=== PATIENT | male | born 1960 | race African-American/Black ===

== ENCOUNTER 2016-07-17 18:16 | Inpatient (IN) | payer MEDICARE ==
[~2016-07-17] VITALS: Ht 165.1 cm; Wt 124.6 kg
[~2016-07-17 18:16] MED LIST: ASPI-147 PO; CALC668T; CARV12.52 PO; DOXY100C PO; ISOS20TA PO; LIPI40TA PO; NEUR300C PO; PRIL10CA PO; PROT40TA PO; REGL10TA5 PO
[2016-07-17 18:19] VITALS: BP 120/68; PULSE 81; RESP 15; TEMP 98.7; O2SAT 97
--- NOTE | 2016-07-17 18:24 | PD ---
Physical Exam Date Seen by Provider: Jul 17, 2016 Time Seen by Provider: 18:20 Narrative Pt was sent to ED for evaluation of osteomyelitis of Right great toe. Pt was sent by Dr. Cruz. Pt reports his pain is an 8/10. Hx of DM, HTN, CKD on HD w/ L AVF. Pt is to be admitted to [facility]. See order sheet. VSS. Awaiting bed placement. MDM Supervised Visit with BOOKER: Sasha Delgado Jul 17, 2016 18:24
[2016-07-17 20:00] VITALS: PULSE 76
[2016-07-17] MEDS ORDERED: CARV3.12 PO (20:11)
[2016-07-17] MEDS ORDERED: GABA100C4 PO (20:11)
[2016-07-17] MEDS ORDERED: PIPERACIL-TAZO 3.375 GM PREMIX 50 ML IV ONE (20:15)
[2016-07-17] MEDS ORDERED: VANCOMYCIN INJ 1,000 MG in SODIUM CHLOR 0.9% 250 ML INJ 250 ML IV ONE (20:15)
--- NOTE | 2016-07-17 20:19 | PD ---
HPI Chief Complaint: Skin Problem Time Seen by Provider: 19:49 Travel History International Travel<30 days: No Contact w/Intl Traveler<30days: No Traveled to known affect area: No History of Present Illness HPI The patient is a 56 year old male who presents to the [facility] emergency department with a past medical history consisting of chronic renal failure on hemodialysis, diabetes mellitus, diabetic neuropathy, hypertension who presents after evaluation by his control officer manager, Dr. Shaw in office earlier today. The patient was noted to have an infection to the right great toe with probing by Dr. Shaw that revealed that it went down to the bone. He was concerned about osteomyelitis and sent the patient over for admission to the [facility] hospitalist service and further evaluation, infectious disease consultation. The patient reports that over the last 2 weeks he has been on doxycycline related to an infected callous on the foot that Dr. Shaw has been managing with scraping, debridement once a week for the last 6 months. The patient reports that otherwise he is in good health. He denies on review of systems having any recent fevers, cough, congestion, neck pain, chest pain, shortness of breath, abdominal pain, vomiting, diarrhea, urinary symptoms, or neurologic symptoms. [facility] Past Medical History Narrative Medical The patient's past medical history is significant for hypertension, chronic renal failure on hemodialysis on Saturday, Saturday, and Saturday. His last dialysis was on Saturday, history of type 2 diabetes mellitus. He reports that his last blood sugar was 110, history of hepatitis C, gastroparesis, diabetic neuropathy, history of chronic anemia. Heart Rhythm Problems: No Cancer: No Cardiovascular Problems: Yes High Cholesterol: Yes Chest Pain: Yes Congestive Heart Failure: No Diabetes: Yes (TYPE 2) Patient Takes Glucophage: No Dialysis: Yes (HEMO M,W,F) Diminished Hearing: No Endocrine: No Gastrointestinal Disorders: Yes (Hep C) Genitourinary: Yes (ESRD) Hepatitis: No Hiatal Hernia: No Hypertension: Yes Immune Disorder: No Implanted Vascular Access Dvce: No Medical other: Yes (diabetic neuropathy) Musculoskeletal: No Neurologic: No Psychiatric: No Reproductive: No Respiratory: No Immunizations Current: Yes Renal Failure: Yes Thyroid Disease: No Past Surgical History Narrative Surgical The patient's past surgical history is significant for a left upper extremity AV fistula for dialysis access Arteriovenous Shunt: Yes (LEFT UPPER ARM,RT. CHEST VASCATH) Pacemaker: No Other Surgery: Yes (LUE FISTULA INSERTION 09/2011) Social History Alcohol Use: No Tobacco Use: No Substance Use: No Allergies-Medications (Allergen,Severity, Reaction): Coded Allergies: Metoprolol (Verified Allergy, Severe, Blurred Vision, lightheadedness, nausea, 07/17/16) Norvasc (Verified Allergy, Severe, Blurred Vision, lightheaded, nausea, ) *MDRO Multi-Drug Resistant Organism (Verified Adverse Reaction, Unknown, ) MRSA (wounds) - 2005; (foot) - 12/22/15, 01/12/16, 05/01/16, 07/03/16 Reported Meds & Prescriptions Reported Meds & Active Scripts Active Doxycycline Hyclate 100 Mg Cap 100 Mg PO BID Reported Gabapentin 100 Mg Cap 200 Mg PO BID Carvedilol 3.125 Mg Tab 3.125 Mg PO HS Lipitor (Atorvastatin Calcium) 40 Mg Tab 40 Mg PO HS Ecotrin Low Strength (Aspirin) 81 Mg Tabdr 81 Mg PO DAILY Calcium Acetate 668 Mg Tab TID Review of Systems Except as stated in HPI: all other systems reviewed are Neg General / Constitutional: No: Fever Eyes: No: Visual changes HENT: No: Headaches Cardiovascular: No: Chest Pain or Discomfort Respiratory: No: Shortness of Breath Gastrointestinal: No: Abdominal Pain Genitourinary: No: Dysuria Musculoskeletal: No: Pain Skin: No Rash Neurologic: No: Weakness Psychiatric: No: Depression Endocrine: No: Polydipsia Hematologic/Lymphatic: No: Easy Bruising Physical Exam Narrative General: The patient is a well-developed well-nourished male in no acute distress. Head and Neck exam: Head is normocephalic atraumatic. Eyes: EOMI, pupils are equal round and reactive to light. Nose: Midline septum with pink mucous membranes Mouth: Dentition unremarkable. Moist mucus membranes. Posterior oropharynx is not erythematous. No tonsillar hypertrophy. Uvula midline. Airway patent. Neck: No palpable lymphadenopathy. No nuchal rigidity. No thyromegaly. Cardiovascular: Regular rate and rhythm without murmurs, gallops, or rubs. Lungs: Clear to auscultation bilaterally. No wheezes, rhonchi, or rales. Abdomen: Soft, without tenderness to palpation in all 4 quadrants of the abdomen. No guarding, rebound, or rigidity. Normal bowel sounds are audible. No tenderness on palpation of McBurney's point. Extremities: No clubbing or cyanosis. The patient has trace pedal edema of the left lower extremity, 1-2+ edema of the right foot, right lower extremity. The patient has 2+ pulses in all 4 extremities. The patient has a bandage in place over the distal aspect of the right foot. Prior to the bandage be removed there was a strong odor noted to be emanating from the foot. The bandage was removed and the patient was noted to have swelling, erythema, and drainage from the right great toe at the borders of the toenail, and along the inner aspect of the great toe between the first and the second toe. The swelling extends up to the dorsum of the foot. He denies having any tenderness on palpation although he does have a history of neuropathy. Back: No costovertebral angle tenderness to palpation. Neurologic Exam: Grossly nonfocal. Data Data Last Documented VS Vital Signs Date Time Temp Pulse Resp B/P Pulse Ox O2 Delivery O2 Flow Rate FiO2 07/17/16 18:19 98.7 81 15 120/68 97 Orders Electrocardiogram (07/17/16 20:05) Complete Blood Count With Diff (07/17/16 20:05) Comprehensive Metabolic Panel (07/17/16 20:05) Prothrombin Time / Inr (Pt) (07/17/16 20:05) Act Partial Throm Time (Ptt) (07/17/16 20:05) C-Reactive Protein (Crp) (07/17/16 20:05) Westergren Sedimentation Rate (07/17/16 20:05) Iv Access Insert/Monitor (07/17/16 20:05) Ecg Monitoring (07/17/16 20:05) Oximetry (07/17/16 20:05) Consult Infectious Disease (07/17/16 ) Vancomycin Inj (Vancomycin Inj) (07/17/16 20:15) Piperacil-Tazo 3.375 Gm Premix (Zosyn 3. (07/17/16 20:15) Wound Culture And Gram Stain (07/17/16 20:09) Blood Culture (07/17/16 20:09) Chest, Single Ap (07/17/16 20:09) (Hub Use Only)Inp Phy Cons/Ref (07/17/16 21:17) Ondansetron Inj (Zofran Inj) (07/17/16 22:15) Ondansetron Inj (Zofran Inj) (07/17/16 22:12) Admit Order (Ed Use Only) (07/17/16 22:41) Consult Podiatry (07/17/16 ) Labs Laboratory Tests Test 07/17/16 20:55 White Blood Count 11.2 TH/MM3 Red Blood Count 3.42 MIL/MM3 Hemoglobin 10.3 GM/DL Hematocrit 32.6 % Mean Corpuscular Volume 95.5 FL Mean Corpuscular Hemoglobin 30.1 PG Mean Corpuscular Hemoglobin 31.5 % Concent Red Cell Distribution Width 14.1 % Platelet Count 306 TH/MM3 Mean Platelet Volume 8.3 FL Neutrophils (%) (Auto) 77.2 % Lymphocytes (%) (Auto) 11.0 % Monocytes (%) (Auto) 10.0 % Eosinophils (%) (Auto) 1.2 % Basophils (%) (Auto) 0.6 % Neutrophils # (Auto) 8.7 TH/MM3 Lymphocytes # (Auto) 1.2 TH/MM3 Monocytes # (Auto) 1.1 TH/MM3 Eosinophils # (Auto) 0.1 TH/MM3 Basophils # (Auto) 0.1 TH/MM3 CBC Comment DIFF FINAL Differential Comment Erythrocyte Sedimentation Rate 91 mm/hr Prothrombin Time 11.6 SEC Prothromb Time International 1.0 RATIO Ratio Activated Partial 26.6 SEC Thromboplast Time Sodium Level 133 MEQ/L Potassium Level 5.6 MEQ/L Chloride Level 96 MEQ/L Carbon Dioxide Level 28.5 MEQ/L Anion Gap 9 MEQ/L Blood Urea Nitrogen 49 MG/DL Creatinine 10.34 MG/DL Estimat Glomerular Filtration 6 ML/MIN Rate Random Glucose 84 MG/DL Calcium Level 9.5 MG/DL Total Bilirubin 0.5 MG/DL Aspartate Amino Transf 40 U/L (AST/SGOT) Alanine Aminotransferase 21 U/L (ALT/SGPT) Alkaline Phosphatase 60 U/L C-Reactive Protein 4.68 MG/DL Total Protein 8.8 GM/DL Albumin 3.1 GM/DL MDM Medical Decision Making Medical Screen Exam Complete: Yes Emergency Medical Condition: Yes Medical Record Reviewed: Yes Interpretation(s) Last Impressions Chest X-Ray 4/25/17 2009 Signed Impressions: Service Date/Time: Sunday, July 17, 2016 20:30 - CONCLUSION: No acute disease. Tacos Downs MD Differential Diagnosis Osteomyelitis, versus cellulitis, versus infected diabetic ulcer Narrative Course During the course of the patients emergency department visit, the patients history, examination, and differential diagnosis were reviewed with the patient. The patient had IV access obtained and blood work sent for analysis. The patient was placed on a child monitor with oximetry and blood pressure monitoring. The patient's order sheet that was provided from Dr. Shaw was reviewed. Blood culture 2 was ordered, wound culture 1 was ordered. Laboratory studies were ordered. The patient's EKG done on arrival shows a sinus rhythm heart rate is 72, no acute ST segment elevation or depression. The patient was initially provided Zosyn 3.375 g IV, vancomycin 1 g IV. The patients laboratory studies were reviewed and remarkable for a white count of 11.2, hemoglobin 10.3, platelets 306 with 77.2 neutrophils, 10 monocytes, sedimentation rate is 91, CMP is remarkable for sodium of 133, potassium 5.6, BUN 49, creatinine 10.34, AST 40, C-reactive protein 4.68, PT 11.6, PTT 26.6 Radiology studies were reviewed and remarkable for a chest x-ray that shows no acute abnormality. The patients results were discussed with the patient, including the plan of care. I explained that further testing and/ or monitoring is indicated based on the patients history, examination, and/ or laboratory findings. Therefore, I recommended admission for additional evaluation. The patient expressed understanding and was agreeable with this plan. The patient was admitted to the hospital in stable condition and sent to a bed under the care of the [facility]ist service. Physician Communication Physician Communication The patient's case was discussed with Dr. Uribe who did agree to admit the patient for further evaluation and treatment at this time. Diagnosis Primary Impression: Diabetic foot ulcer Qualified Code: E11.621 - Diabetic ulcer of toe of right foot associated with type 2 diabetes mellitus, with necrosis of muscle Additional Impression: Cellulitis Qualified Code: L03.115 - Cellulitis of right lower extremity Admitting Information Admitting Physician Requests: Admit Fay Mcmahon MD Jul 17, 2016 20:19
--- NOTE | 2016-07-17 20:46 | RADRPT ---
EXAM DATE/TIME: 07/17/2016 20:30 [place] COMPARISON: No previous studies available for comparison. INDICATIONS : Cough. MEDICAL HISTORY : Hypertension. SURGICAL HISTORY : None. ENCOUNTER: Initial ACUITY: 1 day PAIN SCORE: 0/10 LOCATION: Bilateral chest FINDINGS: A single view of the chest demonstrates the lungs to be symmetrically aerated without evidence of mas s, infiltrate or effusion. The cardiomediastinal contours are unremarkable. Osseous structures are intact. CONCLUSION: No acute disease. Tacos Downs MD on July 17, 2016 at 20:44 Board Certified Radiologist. This report was verified electronically.
[2016-07-17 22:10] LABS: AUTOMATED NEUTROPHIL # 8.7 TH/MM3 (1.8-7.7); BASOPHIL # 0.1 TH/MM3 (0-0.2); BASOPHIL % 0.6 % (0.0-2.0); EOSINOPHIL # 0.1 TH/MM3 (0-0.4); EOSINOPHIL % 1.2 % (0.0-4.0); HEMATOCRIT 32.6 % (39.0-51.0); HEMO FLAGS DIFF FINAL; LYMPHOCYTE # 1.2 TH/MM3 (1.0-4.8); MEAN CELL VOLUME 95.5 FL (80.0-100.0); MEAN CORPUSCULAR HEMOGLOBIN 30.1 PG (27.0-34.0); MEAN CORPUSCULAR HGB CONC 31.5 % (32.0-36.0); NEUT % 77.2 % (16.0-70.0); PLATELET COUNT 306 TH/MM3 (150-450); RED BLOOD COUNT 3.42 MIL/MM3 (4.50-5.90); RED CELL DISTRIBUTION WIDTH 14.1 % (11.6-17.2); WHITE BLOOD COUNT 11.2 TH/MM3 (4.0-11.0)
[2016-07-17] MEDS ORDERED: ONDANSETRON HCL 4 MG/2 ML VIAL ONE (22:12)
[2016-07-17] MEDS ORDERED: ONDANSETRON HCL 4 MG/2 ML VIAL IV ONE (22:15)
[2016-07-17 22:18] LABS: APTT (PATIENT) 26.6 SEC (24.3-30.1); PROTHROMBIN TIME - PATIENT 11.6 SEC (9.8-11.6)
[2016-07-17 22:30] LABS: ALKALINE PHOSPHATASE 60 U/L (45-117); TOTAL BILIRUBIN ADULT 0.5 MG/DL (0.2-1.0)
[2016-07-17 22:32] LABS: ALT (GPT) 21 U/L (12-78); ANION GAP 9 MEQ/L (5-15); AST (GOT) 40 U/L (15-37); BICARBONATE 28.5 MEQ/L (21.0-32.0); BLOOD UREA NITROGEN 49 MG/DL (7-18); CHLORIDE 96 MEQ/L (98-107); GLOMERULAR FILTRATION RATE 6 ML/MIN (>89); SODIUM (NA) 133 MEQ/L (136-145)
[2016-07-17 22:33] LABS: POTASSIUM 5.6 MEQ/L (3.5-5.1)
[2016-07-17] MEDS ORDERED: SODIUM CHLORIDE 0.9% FLUSH 10 ML FLUSH IV FLUSH PRN (23:00)
[2016-07-17] MEDS ORDERED: ONDANSETRON HCL 4 MG/2 ML VIAL IVP PRN (23:00)
[2016-07-17] MEDS ORDERED: NALOXONE HCL 0.4 MG/ML AMP IV PRN (23:00)
[2016-07-17 23:56] VITALS: BP 135/63; PULSE 82; RESP 18; TEMP 98.4; O2SAT 100
[2016-07-18] VITALS (10 sets, daily range): BP systolic 101–126; BP diastolic 50–69; PULSE 71–79; RESP 16–18; TEMP 98.4–99.4; O2SAT 95–100
--- NOTE | 2016-07-18 01:44 | HHI.HP ---
Dr Cruz [facility] Non-Staff Admission Diagnosis Right foot infection, failed out patient management, r/o osteomyelit Diagnoses: Chief Complaint: my doctor sent me Travel History International Travel<30 Days: No Contact w/Intl Traveler <30 Da: No Traveled to Known Affected Are: No History of Present Illness History from patient, ER physician communication, and review of medical records. Patient reported that he came to the hospital because he was sent by his director script Dr. Cruz. He states that only starting Saturday, both his doctor incidence of noted his right big toe to be swelling more than usual. He reports that he was seeing his director script for calluses and a hole in his right plantar foot. He reports he was also on antibiotics for about 2 weeks. He thought that his right big toe itself was not infected much. Denies fever. However reports of chills. He is a diabetic. He reports a foul smelling discharge from this wound. He did have 1 times episode of diarrhea and vomiting last week. No blood in it. He denies any urinary symptoms. He is still making urine. He is end-stage renal disease patient on hemodialysis. Review of Systems Except as stated in HPI: all other systems reviewed are Neg Past Family Social History Past Medical History htn dm esrd hd Past Surgical History av fistula Reported Medications Patient's medications listed on EMRreviewed Allergies: Coded Allergies: Metoprolol (Verified Allergy, Severe, Blurred Vision, lightheadedness, nausea, 07/17/16) Norvasc (Verified Allergy, Severe, Blurred Vision, lightheaded, nausea, ) *MDRO Multi-Drug Resistant Organism (Verified Adverse Reaction, Unknown, ) MRSA (wounds) - 2005; (foot) - 12/22/15, 01/12/16, 05/01/16, 07/03/16 Family History grandma - dm, esrd on hd grandpa- esrd on hd mom , grandma- htn Social History no smoking/ no drinking/ no drugs Physical Exam Vital Signs Vital Signs Date Time Temp Pulse Resp B/P Pulse Ox O2 Delivery O2 Flow Rate FiO2 07/17/16 23:56 98.4 82 18 135/63 100 07/17/16 18:19 98.7 81 15 120/68 97 Physical Exam GENERAL: This is a well-nourished, well-developed patient, in no apparent distress. SKIN: No rashes, ecchymoses or lesions. Cool and dry. HEAD: Atraumatic. Normocephalic. No temporal or scalp tenderness. EYES: No scleral icterus. No injection or drainage. ENT: Nose without bleeding, purulent drainage or septal hematoma. Airway patent. NECK: Trachea midline. No JVD CARDIOVASCULAR: Regular rate and rhythm without murmurs, gallops, or rubs. RESPIRATORY: Clear to auscultation. Breath sounds equal bilaterally. No wheezes , rales, or rhonchi. GASTROINTESTINAL: Abdomen soft, non-tender, nondistended. No guarding. MUSCULOSKELETAL: Extremities without clubbing, cyanosis, or edema. No calf tenderness. Right plantar foot with open wound. Right big toe with significant swelling, pain, surrounding erythema. NEUROLOGICAL: Awake and alert. Motor and sensory grossly within normal limits. Normal speech. Laboratory Laboratory Tests Test 07/17/16 20:55 White Blood Count 11.2 Red Blood Count 3.42 Hemoglobin 10.3 Hematocrit 32.6 Mean Corpuscular Volume 95.5 Mean Corpuscular Hemoglobin 30.1 Mean Corpuscular Hemoglobin 31.5 Concent Red Cell Distribution Width 14.1 Platelet Count 306 Mean Platelet Volume 8.3 Neutrophils (%) (Auto) 77.2 Lymphocytes (%) (Auto) 11.0 Monocytes (%) (Auto) 10.0 Eosinophils (%) (Auto) 1.2 Basophils (%) (Auto) 0.6 Neutrophils # (Auto) 8.7 Lymphocytes # (Auto) 1.2 Monocytes # (Auto) 1.1 Eosinophils # (Auto) 0.1 Basophils # (Auto) 0.1 CBC Comment DIFF FINAL Differential Comment Erythrocyte Sedimentation Rate 91 Prothrombin Time 11.6 Prothromb Time International 1.0 Ratio Activated Partial 26.6 Thromboplast Time Sodium Level 133 Potassium Level 5.6 Chloride Level 96 Carbon Dioxide Level 28.5 Anion Gap 9 Blood Urea Nitrogen 49 Creatinine 10.34 Estimat Glomerular Filtration 6 Rate Random Glucose 84 Calcium Level 9.5 Total Bilirubin 0.5 Aspartate Amino Transf 40 (AST/SGOT) Alanine Aminotransferase 21 (ALT/SGPT) Alkaline Phosphatase 60 C-Reactive Protein 4.68 Total Protein 8.8 Albumin 3.1 Date/Time Procedure Status Source Growth 07/17/16 21:30 Gram Stain Received Wound Foot Pending 07/17/16 21:30 Wound Culture Received Wound Foot Pending 07/17/16 20:55 Aerobic Blood Culture Received Blood Peripheral Pending 07/17/16 20:55 Anaerobic Blood Culture Received Blood Peripheral Pending Result Diagram: 07/17/[id number]/17/162054 Imaging Last 48 hours Impressions Chest X-Ray 07/17/162008 Signed Impressions: Service Date/Time: Sunday, July 17, 2016 20:30 - CONCLUSION: No acute disease. Tacos Downs MD Assessment and Plan Problem List: (1) Osteomyelitis of toe of right foot ICD Code: M86.9 Status: Resolved (2) Diabetic foot ulcer ICD Code: E11.621 Status: Acute Assessment and Plan Impression: Possible right foot osteomyelitis Failed outpatient antibiotic therapy Right foot soft tissue infection Diabetes Hypertension End-stage renal disease on hemodialysis plan: Plan: Patient was given vancomycin and Zosyn per creatinine clearance. Will dose Vanco at dialysis. Infectious disease was already consulted. Podiatry evaluation for possible surgical intervention. We'll follow with patient's blood cultures and urine culture results. Resume rest of his home meds. DVT prophylaxiswith heparin. Discussed Condition With Patient, ER physician Physician Certification 2 Midnight Certification Type: Admission for Inpatient Services Order for Inpatient Services The services are ordered in accordance with Medicare regulations or non- Medicare payer requirements, as applicable. In the case of services not specified as inpatient-only, they are appropriately provided as inpatient services in accordance with the 2-midnight benchmark. Estimated LOS (days): 2 days is the estimated time the patient will need to remain in the hospital, assuming treatment plan goals are met and no additional complications. Post-Hospital Plan: Home Problem Qualifiers (1) Diabetic foot ulcer: Qualified Code: E11.621 - Diabetic ulcer of toe of right foot associated with type 2 diabetes mellitus, with necrosis of bone Soco Uribe MD Jul 18, 2016 01:44
[2016-07-18] MEDS: PIPERACIL-TAZO 2.25 GM PREMIX 50 ML IV SCH ×3 (04:50→22:17)
[2016-07-18] MEDS ORDERED: PIPERACIL-TAZO 4.5 GM PREMIX 100 ML IV SCH (05:00)
[2016-07-18 07:26] LABS: AUTOMATED NEUTROPHIL # 7.3 TH/MM3 (1.8-7.7); BASOPHIL % 0.3 % (0.0-2.0); EOSINOPHIL # 0.2 TH/MM3 (0-0.4); EOSINOPHIL % 1.6 % (0.0-4.0); HEMATOCRIT 32.8 % (39.0-51.0); HEMO FLAGS DIFF FINAL; LYMPH % 12.9 % (9.0-44.0); LYMPHOCYTE # 1.2 TH/MM3 (1.0-4.8); MEAN CELL VOLUME 96.3 FL (80.0-100.0); MEAN CORPUSCULAR HEMOGLOBIN 29.9 PG (27.0-34.0); MONO % 9.4 % (0.0-8.0); NEUT % 75.8 % (16.0-70.0); PLATELET COUNT 271 TH/MM3 (150-450); RED CELL DISTRIBUTION WIDTH 13.7 % (11.6-17.2); WHITE BLOOD COUNT 9.6 TH/MM3 (4.0-11.0)
[2016-07-18 07:31] LABS: BICARBONATE 26.3 MEQ/L (21.0-32.0)
--- NOTE | 2016-07-18 08:32 | PD.WOU.CON ---
Patient Intake Chief Complaint Infected right hallux Consult Requested by Reason for Consult Evaluation and treatment for osteomyelitis right hallux Primary Care Physician Non-Staff History of Present Illness Patient is a 56-year-old diabetic male with end-stage renal disease on hemodialysis Saturday, Wednesdays and Fridays who presented to [facility] for advanced wound healing yesterday with an infected right hallux. Patient previously had an ulceration on the plantar aspect of the first metatarsal head of the right foot. Last culture and sensitivity grew out MRSA. Patient was started on antibiotics. He presented yesterday with a hot red swollen toe with new ulcerations between the first and second toe and the dorsal aspect of the big toe which probed to bone. Patient was sent to the emergency department for admission for possible amputation of the right hallux [facility] Coded Allergies: Metoprolol (Verified Allergy, Severe, Blurred Vision, lightheadedness, nausea, 07/17/16) Norvasc (Verified Allergy, Severe, Blurred Vision, lightheaded, nausea, ) *MDRO Multi-Drug Resistant Organism (Verified Adverse Reaction, Unknown, ) MRSA (wounds) - 2005; (foot) - 12/22/15, 01/12/16, 05/01/16, 07/03/16 Preferred Language to Discuss: Malaysian Barriers to Learning: None Teaching Method: Discussion Vital Signs Date Time Temp Pulse Resp B/P Pulse Ox O2 Delivery O2 Flow Rate FiO2 07/18/16 05:30 99.4 75 18 126/58 97 07/18/16 00:30 76 07/17/16 23:56 98.4 82 18 135/63 100 07/17/16 18:19 98.7 81 15 120/68 97 Pain scale used: 0-10 numeric scale Pain score: 1 Medications Current Medications Vancomycin HCl 1000 mg/Sodium Chloride 250 ml @ 250 mls/hr ONCE ONCE IV Last administered on 07/17/16 22:14; Start 07/17/16 at 20:15; Stop 07/17/16 at 21:14 ; Status DC Piperacillin Sod/ Tazobactam Sod (Zosyn 3.375 Gm Premix) 50 ml @ 100 mls/hr ONCE ONCE IV Last administered on 07/17/16 22:14; Start 07/17/16 at 20:15; Stop 07/17/16 at 20:44; Status DC Ondansetron HCl (Zofran Inj) 4 mg ONCE ONCE IV Last administered on 07/17/16t 22:14; Start 07/17/16 at 22:15; Stop 07/17/16 at 22:16; Status DC Ondansetron HCl (Zofran Inj) 4 mg STK-MED ONCE .ROUTE ; Start 07/17/16 at 22:12 ; Stop 07/17/16 at 22:13; Status DC Sodium Chloride (NS Flush) 2 ml UNSCH PRN IV FLUSH FLUSH AFTER USING IV ACCESS ; Start 07/17/16 at 23:00 Sodium Chloride (NS Flush) 2 ml BID IV FLUSH ; Start 07/18/16 at 09:00 Ondansetron HCl (Zofran Inj) 4 mg Q6H PRN IVP NAUSEA OR VOMITING; Start at 23:00 Naloxone HCl 0.4 mg 0.4 mg UNSCH PRN IV SEE LABEL COMMENTS; Start 07/17/16 at 23:00 Piperacillin Sod/ Tazobactam Sod 100 ml @ 200 mls/hr Q6H IV ; Start 07/18/16 at 05:00; Status UNV Piperacillin Sod/ Tazobactam Sod (Zosyn 2.25 Gm Premix) 50 ml @ 100 mls/hr Q8H IV Last administered on 07/18/16 04:50; Start 07/18/16 at 05:00 Aspirin (Ecotrin Ec) 81 mg DAILY PO ; Start 07/18/16 at 09:00 Atorvastatin Calcium (Lipitor) 40 mg HS PO ; Start 07/18/16 at 21:00 Carvedilol (Coreg) 3.125 mg HS PO ; Start 07/18/16 at 21:00 Gabapentin (Neurontin) 200 mg Q24H PO ; Start 07/18/16 at 09:00 Heparin Sodium (Porcine) (Heparin Inj) 5,000 units Q8HR SQ ; Start 07/18/16 at 14:00 Past, Family & Social History Past Medical History HEENT: REPORTS HX OF: Cataracts Endocrine: REPORTS HX OF: Diabetes mellitus (diabetic control) Cardiovascular: REPORTS HX OF: Hyperlipidemia, Hypertension Genitourinary: REPORTS HX OF: Hemodialysis, Kidney failure (stage 5) Infectious disease: REPORTS HX OF: Chickenpox (as a child), Measles (as a child ), Mumps (as a child) Neurologic: REPORTS HX OF: Peripheral neuropathy Disabilities: REPORTS HX OF: Vision deficit (reading glasses) Past Surgical History HEENT: REPORTS HX OF: Cataract extraction Gastrointestinal: REPORTS HX OF: Colectomy, total Genitourinary: REPORTS HX OF: Other surgery Family Medical History Patient History: Unknown G8 FATHER G8 MOTHER Substance Use Substance use: Denies use Review of Systems Notes Infected right hallux Genitourinary: COMPLAINS OF: Renal disease, Dialysis Neurological: COMPLAINS OF: Numbness/tingling, Changes in sensation Wound Assessment Arrived: Ambulatory Orientation to: Time, Place, Person Vascular Assessment R Dorsails Pedis: Palpable L Dorsails Pedis: Palpable R Posterior Tibial: Palpable L Posterior Tibial: Palpable Temperature of Left Extremity: Warm Color of Left Extremity: WNL Sensation of Left Extremity: Diminished Temperature of Right Extremity: Hot Color of Right Extremity: Red Sensation of Right Extremity: Diminished Extremities Evaluation: Edema Right, Edema Left Wound Information - Wound One Wound Location: Right plantar foot of first metatarsal Wound Type: Diabetic Ulcer Classification: FT- full thickness Exudate: Low Exudate Type: Serosanguineous Debridement: No Fibrin Amount: Mild Granulation Tissue Color: [place] Exposed: No exposed bone, muscle, tendon Eschar: No Odor: No Periwound Appearance: FINDINGS: Normal Wound Two Wound Location: Right lateral Great toe Wound Type: Diabetic Ulcer Classification: PT- partial thickness Exudate: Moderate Exudate Type: Serosanguineous Debridement: No Fibrin Amount: Mild Granulation Tissue Color: [place] Granulation Tissue Texture: Spongy Exposed: No exposed bone, muscle, tendon Eschar: No Odor: Yes Periwound Appearance: FINDINGS: Maceration Wound Three Wound Location: Right medial great toe Wound Type: Diabetic Ulcer Classification: Bone/Tendon Present Exudate: Moderate Exudate Type: Purulent Debridement: No Fibrin Amount: Moderate Granulation Tissue Color: None Granulation Tissue Texture: N/A Exposed: Bone, Muscle, Tendon Eschar: No Odor: Yes Periwound Appearance: FINDINGS: Erythema Lab and Radiology Results Laboratory Laboratory Tests Test 07/17/16 07/18/16 20:55 05:46 White Blood Count 11.2 TH/MM3 9.6 TH/MM3 Red Blood Count 3.42 MIL/MM3 3.40 MIL/MM3 Hemoglobin 10.3 GM/DL 10.2 GM/DL Hematocrit 32.6 % 32.8 % Mean Corpuscular Volume 95.5 FL 96.3 FL Mean Corpuscular Hemoglobin 30.1 PG 29.9 PG Mean Corpuscular Hemoglobin 31.5 % 31.0 % Concent Red Cell Distribution Width 14.1 % 13.7 % Platelet Count 306 TH/MM3 271 TH/MM3 Mean Platelet Volume 8.3 FL 8.3 FL Neutrophils (%) (Auto) 77.2 % 75.8 % Lymphocytes (%) (Auto) 11.0 % 12.9 % Monocytes (%) (Auto) 10.0 % 9.4 % Eosinophils (%) (Auto) 1.2 % 1.6 % Basophils (%) (Auto) 0.6 % 0.3 % Neutrophils # (Auto) 8.7 TH/MM3 7.3 TH/MM3 Lymphocytes # (Auto) 1.2 TH/MM3 1.2 TH/MM3 Monocytes # (Auto) 1.1 TH/MM3 0.9 TH/MM3 Eosinophils # (Auto) 0.1 TH/MM3 0.2 TH/MM3 Basophils # (Auto) 0.1 TH/MM3 0.0 TH/MM3 CBC Comment DIFF FINAL DIFF FINAL Differential Comment Erythrocyte Sedimentation Rate 91 mm/hr Laboratory Tests Test 07/17/16 07/18/16 20:55 05:46 Sodium Level 133 MEQ/L 138 MEQ/L Potassium Level 5.6 MEQ/L 4.0 MEQ/L Chloride Level 96 MEQ/L 99 MEQ/L Carbon Dioxide Level 28.5 MEQ/L 26.3 MEQ/L Anion Gap 9 MEQ/L 13 MEQ/L Blood Urea Nitrogen 49 MG/DL 56 MG/DL Creatinine 10.34 MG/DL 11.15 MG/DL Estimat Glomerular Filtration 6 ML/MIN 6 ML/MIN Rate Random Glucose 84 MG/DL 139 MG/DL Calcium Level 9.5 MG/DL 9.1 MG/DL Total Bilirubin 0.5 MG/DL Aspartate Amino Transf 40 U/L (AST/SGOT) Alanine Aminotransferase 21 U/L (ALT/SGPT) Alkaline Phosphatase 60 U/L C-Reactive Protein 4.68 MG/DL Total Protein 8.8 GM/DL Albumin 3.1 GM/DL Microbiology Date/Time Procedure Status Source Growth 07/17/16 20:50 Aerobic Blood Culture Received Blood Peripheral Pending 07/17/16 20:50 Anaerobic Blood Culture Received Blood Peripheral Pending 07/17/16 20:55 Aerobic Blood Culture Received Blood Peripheral Pending 07/17/16 20:55 Anaerobic Blood Culture Received Blood Peripheral Pending 07/17/16 21:30 Gram Stain Received Wound Foot Pending 07/17/16 21:30 Wound Culture Received Wound Foot Pending Radiology Last Impressions Chest X-Ray 07/17/162008 Signed Impressions: Service Date/Time: Sunday, July 17, 2016 20:30 - CONCLUSION: No acute disease. Tacos Downs MD Assessment/Plan Problem List: (1) Chronic renal failure Status: Chronic (2) Ulcer of right foot with fat layer exposed Status: Acute (3) Diabetes mellitus type 2, diet-controlled Status: Chronic (4) Peripheral neuropathy Status: Chronic (5) End stage renal disease on dialysis Status: Chronic (6) Neuropathic diabetic ulcer of foot Status: Chronic (7) Osteomyelitis of toe of right foot Status: Acute (8) Diabetic foot ulcer Status: Acute Additional Plans & Procedures PLAN: Ordered Cerete labeled white blood cell scan. If scan is positive for osteomyelitis patient will be taken to the operating room for amputation of the right hallux. This will more than likely be done on Saturday after he has had hemodialysis on Saturday. Awaiting infectious disease consultation. Discuss risk of amputation with the patient. Problem Qualifiers (1) Chronic renal failure: Qualified Code: N18.4 - Chronic renal failure, stage 4 (severe) (2) Peripheral neuropathy: Qualified Code: G63 - Polyneuropathy associated with underlying disease (3) Diabetic foot ulcer: Qualified Code: E11.621 - Diabetic ulcer of toe of right foot associated with type 2 diabetes mellitus, with necrosis of bone Tacos Cruz DPM Jul 18, 2016 08:32
[2016-07-18] MEDS: SODIUM CHLORIDE 0.9% FLUSH 10 ML FLUSH IV FLUSH SCH ×2 (09:00→22:20)
[2016-07-18] MEDS ORDERED: SODIUM CHLOR 0.9% 1000 ML INJ 1,000 ML IV PRN ×3 (11:31)
[2016-07-18] MEDS ORDERED: GENTAMICIN SULFATE (DIALYSIS USE ONLY) 20 MG/2 ML VIAL IV PRN (11:45)
[2016-07-18] MEDS ORDERED: GELATIN 12 MM/7 MM FOAM TOP PRN (11:45)
[2016-07-18] MEDS ORDERED: ACETAMINOPHEN 325 MG TAB PO PRN (11:45)
[2016-07-18] MEDS ORDERED: NITROGLYCERIN 0.4 MG SL 25 TABS/BTL SL PRN (11:45)
[2016-07-18] MEDS ORDERED: MANNITOL 12.5 GM/50 ML VIAL IV PRN (11:45)
[2016-07-18] MEDS ORDERED: HEPARIN SODIUM - IV 10,000 UNITS/10 ML VIAL IVF PRN (11:45)
[2016-07-18] MEDS ORDERED: ONDANSETRON HCL 4 MG/2 ML VIAL IV PRN (11:45)
[2016-07-18] MEDS ORDERED: ALBUMIN HUMAN 25% 25 GM/100 ML BAGP IV PRN (11:45)
[2016-07-18] MEDS ORDERED: cloNIDine HCL 0.1 MG TAB PO PRN (11:45)
[2016-07-18] MEDS ORDERED: SODIUM CHLORIDE 0.9% FLUSH 10 ML FLUSH IV FLUSH PRN (11:45)
[2016-07-18] MEDS ORDERED: diphenhydrAMINE HCL 25 MG CAP PO PRN (11:45)
[2016-07-18] MEDS ORDERED: HEPARIN SODIUM - IV 10,000 UNITS/10 ML VIAL PRN (11:45)
[2016-07-18] MEDS: EPOETIN ALFA 10,000 UNITS/ML VIAL IV PRN (12:00)
--- NOTE | 2016-07-18 12:27 | MB ---
cc: GILL SHEETS MD DATE OF CONSULTATION 07/18/2016 REASON FOR CONSULTATION End-stage renal disease on hemodialysis for management. HISTORY OF PRESENT ILLNESS This is a 56-year-old male known to me from before with past medical history of hypertension, diabetes mellitus, morbid obesity, history of end-stage renal disease on hemodialysis who came to the hospital with a complaint of right big toe infection and possibility of rule out osteomyelitis. I was called to see the patient for management of hemodialysis. He has been on hemodialysis Saturday, Saturday and Saturday. He has regular dialysis on Saturday and went to follow up with a retention manager and noted that his right big toe was more swollen and was sent here for more workup and possibility of osteomyelitis. The patient denies any specific pain in the big toe. There is no shortness of breath. No chest pain. He denies any history of fever. He has some foul smelling discharge coming from his toe for the last one week or so. PAST MEDICAL HISTORY 1. Hypertension 2. Diabetes mellitus 3. Morbid obesity 4. Chronic anemia 5. End-stage renal disease on hemodialysis three times per week. PAST SURGICAL HISTORY Fistula surgery REVIEW OF SYSTEMS Denies any history of fever or sore throat. No headache, dizziness or blurring of vision. No chest pain. No palpitation. No nausea or vomiting. No abdominal pain. No history of diarrhea. He has a foul-smelling discharge coming from right big toe which is also improved. There is more swelling in the big toe, but he does not have pain. Denies any history of trauma. SOCIAL HISTORY The patient is . He lives alone. There is no history of smoking or alcoholism. FAMILY HISTORY Positive for end-stage renal disease from his grandfather and grandmother. ALLERGIES Allergic to METOPROLOL AND NORVASC. MEDICATIONS Currently he is on following medications: 1. Aspirin 81 mg once a day. 2. Lipitor 40 mg q.h.s. 3. Colace 3.125 mg q.h.s. 4. Gabapentin 200 mg q.24 h 5. Zosyn 2.25 grams IV q. 8-hour. 6. Heparin 5000 subcu q.8 h. 7. Zofran as needed PHYSICAL EXAM On examination, the patient is awake and alert. He is not in acute distress. VITAL SIGNS: His blood pressure is 112/69, temperature 99. A T-max of 99.4, oxygen saturation 95-97% on room air. HEAD, EYES, EARS, NOSE, AND THROAT: Pupils equally reacting to light. Nonicteric sclera. Conjunctivae normal. NECK: Supple. JVD is not elevated. LUNGS: The patient has bilateral good air entry with occasional wheezing. HEART: S1, S2 regular rhythm. ABDOMEN: Obese, soft and lax. There is no tenderness. Bowel sounds positive. EXTREMITIES: Mild edema in the legs. The right big toe is covered with a dressing. INVESTIGATION WBC count is 9.6, hemoglobin 10.2, platelet count of 271, neutrophils 75.8%. Sodium 138, potassium 4.0, chloride 99, bicarb 26.3, BUN 56, creatinine 11.1, glucose 139, INR is 1.0. IMAGING STUDIES The patient has chest x-ray done which shows lung hale clear. ASSESSMENT/PLAN 1. Right big toe infection, rule out osteomyelitis. 2. Peripheral neuropathy 3. End-stage renal disease on hemodialysis. 4. Hypertension 5. EEA The patient has been seen by podiatry and is currently getting the antibiotic Zosyn and WBC scan has been ordered to find out if he has any osteomyelitis. He currently is getting hemodialysis and we will remove fluid as tolerated. Hemodynamically he is stable. Thank you for the consultation and I will follow the patient while he is in the hospital. MD GM Coleman/ASTER /11:30 AM /12:07 PM
--- NOTE | 2016-07-18 13:01 | PD.CONS ---
History of Present Illness Consult Requested By Primary Care Physician Diagnoses: Past Family Social History Allergies: Coded Allergies: Metoprolol (Verified Allergy, Severe, Blurred Vision, lightheadedness, nausea, 07/17/16) Norvasc (Verified Allergy, Severe, Blurred Vision, lightheaded, nausea, ) *MDRO Multi-Drug Resistant Organism (Verified Adverse Reaction, Unknown, ) MRSA (wounds) - 2005; (foot) - 12/22/15, 01/12/16, 05/01/16, 07/03/16 Physical Exam Result Diagram: 07/18/16 0546 07/18/16 0546 Elli Cummins MD Jul 18, 2016 13:01 Patient is a 56-year-old diabetic male with end-stage renal disease on hemodialysis Saturday, Wednesdays and Fridays who presented to [facility] for advanced wound healing yesterday with an infected right hallux. Patient previously had an ulceration on the plantar aspect of the first metatarsal head of the right foot. Last culture and sensitivity grew out MRSA. Patient was started on antibiotics. He presented yesterday with a hot red swollen toe with new ulcerations between the first and second toe and the dorsal aspect of the big toe which probed to bone. Patient was sent to the emergency department for admission for possible amputation of the right hallux [facility] Past Family Social History Allergies: Coded Allergies: Metoprolol (Verified Allergy, Severe, Blurred Vision, lightheadedness, nausea, 07/17/16) Norvasc (Verified Allergy, Severe, Blurred Vision, lightheaded, nausea, ) *MDRO Multi-Drug Resistant Organism (Verified Adverse Reaction, Unknown, ) MRSA (wounds) - 2005; (foot) - 12/22/15, 01/12/16, 05/01/16, 07/03/16 Past Medical History Hypertension Diabetes ESRD, on HD, Saturday and Saturday Past Surgical History AV fistula Active Ordered Medications Tylenol Albumin Aspirin Lipitor Coreg Clonidine Benadryl Epogen Neurontin Heparin Mannitol Zofran Zosyn Social History Denies smoking No alcohol abuse Denies illicit drug Physical Exam Vital Signs Vital Signs Date Time Temp Pulse Resp B/P Pulse Ox O2 Delivery O2 Flow Rate FiO2 07/18/16 09:00 79 07/18/16 08:00 99.0 75 16 112/69 95 07/18/16 05:30 99.4 75 18 126/58 97 07/18/16 00:30 76 07/17/16 23:56 98.4 82 18 135/63 100 07/17/16 18:19 98.7 81 15 120/68 97 Physical Exam GENERAL: This is a well-nourished, well-developed patient, in no apparent distress. SKIN: No rashes, ecchymoses or lesions. Cool and dry. HEAD: Atraumatic. Normocephalic. No temporal or scalp tenderness. EYES: Pupils equal round and reactive. Extraocular motions intact. No scleral icterus. No injection or drainage. ENT: Nose without bleeding, purulent drainage or septal hematoma. Throat without erythema, tonsillar hypertrophy or exudate. Uvula midline. Airway patent. NECK: Trachea midline. No JVD or lymphadenopathy. Supple, nontender, no meningeal signs. CARDIOVASCULAR: Regular rate and rhythm without murmurs, gallops, or rubs. RESPIRATORY: Clear to auscultation. Breath sounds equal bilaterally. No wheezes , rales, or rhonchi. GASTROINTESTINAL: Abdomen soft, non-tender, nondistended. No hepato-splenomegaly , or palpable masses. No guarding. MUSCULOSKELETAL: Extremities without clubbing, cyanosis, or edema. No joint tenderness, effusion, or edema noted. No calf tenderness. Negative Homans sign bilaterally. NEUROLOGICAL: Awake and alert. Cranial nerves II through XII intact. Motor and sensory grossly within normal limits. Five out of 5 muscle strength in all muscle groups. Normal speech. Laboratory Laboratory Tests Test 07/17/16 07/18/16 20:55 05:46 White Blood Count 11.2 9.6 Red Blood Count 3.42 3.40 Hemoglobin 10.3 10.2 Hematocrit 32.6 32.8 Mean Corpuscular Volume 95.5 96.3 Mean Corpuscular Hemoglobin 30.1 29.9 Mean Corpuscular Hemoglobin 31.5 31.0 Concent Red Cell Distribution Width 14.1 13.7 Platelet Count 306 271 Mean Platelet Volume 8.3 8.3 Neutrophils (%) (Auto) 77.2 75.8 Lymphocytes (%) (Auto) 11.0 12.9 Monocytes (%) (Auto) 10.0 9.4 Eosinophils (%) (Auto) 1.2 1.6 Basophils (%) (Auto) 0.6 0.3 Neutrophils # (Auto) 8.7 7.3 Lymphocytes # (Auto) 1.2 1.2 Monocytes # (Auto) 1.1 0.9 Eosinophils # (Auto) 0.1 0.2 Basophils # (Auto) 0.1 0.0 CBC Comment DIFF FINAL DIFF FINAL Differential Comment Erythrocyte Sedimentation Rate 91 Prothrombin Time 11.6 Prothromb Time International 1.0 Ratio Activated Partial 26.6 Thromboplast Time Sodium Level 133 138 Potassium Level 5.6 4.0 Chloride Level 96 99 Carbon Dioxide Level 28.5 26.3 Anion Gap 9 13 Blood Urea Nitrogen 49 56 Creatinine 10.34 11.15 Estimat Glomerular Filtration 6 6 Rate Random Glucose 84 139 Calcium Level 9.5 9.1 Total Bilirubin 0.5 Aspartate Amino Transf 40 (AST/SGOT) Alanine Aminotransferase 21 (ALT/SGPT) Alkaline Phosphatase 60 C-Reactive Protein 4.68 Total Protein 8.8 Albumin 3.1 Date/Time Procedure Status Source Growth 07/17/16 21:30 Gram Stain - Final Resulted Wound Foot 07/17/16 21:30 Wound Culture Resulted Wound Foot Pending 07/17/16 20:55 Aerobic Blood Culture - Preliminary Resulted Blood Peripheral NO GROWTH IN 1 DAY 07/17/16 20:55 Anaerobic Blood Culture - Preliminary Resulted Blood Peripheral NO GROWTH IN 1 DAY Result Diagram: 07/18/16 0546 07/18/16 0546 Imaging RADIOLOGY STUDIES/FILMS REVIEWED Chest X-Ray 07/17/162008 Signed Impressions: Service Date/Time: Sunday, July 17, 2016 20:30 - CONCLUSION: No acute disease. Tacos Downs MD Assessment and Plan Assessment and Plan IMPRESSION RECOMMENDATION Elli Cummins MD Jul 18, 2016 13:01
--- NOTE | 2016-07-18 15:38 | HHI.PR ---
Addendum to Inpatient Note Addendum Reason: Additional Documentation Additional Information Patient seen and examined by me. Denies chest pain or short of breath. Denies fevers or chills. Denies pain in right toe. Patient is awake and oriented 3, nonacute distress, sitting up in chair. States that he has been told by his physician that he is not diabetic. I discussed the case with Dr. Cruz who ordered this set the rectum white blood cell tagged study. If positive then the patient will likely need amputation of the right hallux. Continue IV Zosyn. Dru Dallas MD Jul 18, 2016 15:38
[2016-07-18] MEDS: ASPIRIN EC 81 MG TABEC PO SCH (17:38)
[2016-07-18] MEDS: GABAPENTIN 100 MG CAP PO SCH (17:38)
[2016-07-18] MEDS: HEPARIN SODIUM - SQ 10,000 UNITS/ML VIAL SQ SCH ×2 (17:38→22:26)
--- NOTE | 2016-07-18 20:16 | EKG ---
Date Performed: 07/17/2016 Time Performed: 20:26:47 PTAGE: 56 years EKG: Sinus rhythm NORMAL ECG Since PREVIOUS TRACING , no significant change noted PREVIOUS TRACIN01/17/2016 09.58 DOCTOR: Lisa Parada Interpretating Date/Time 07/18/2016 20:15:45
[2016-07-18] MEDS: CARVEDILOL 3.125 MG TAB PO SCH (21:00)
[2016-07-18] MEDS: ATORVASTATIN 40 MG TAB PO SCH (22:25)
[2016-07-19] VITALS (7 sets, daily range): BP systolic 102–136; BP diastolic 51–81; PULSE 70–85; RESP 16–18; TEMP 97.7–99.3; O2SAT 93–99
[2016-07-19] MEDS: PIPERACIL-TAZO 2.25 GM PREMIX 50 ML IV SCH ×3 (04:50→21:40)
[2016-07-19] MEDS: HEPARIN SODIUM - SQ 10,000 UNITS/ML VIAL SQ SCH ×3 (05:00→21:39)
[2016-07-19] MEDS: SODIUM CHLORIDE 0.9% FLUSH 10 ML FLUSH IV FLUSH SCH ×2 (09:00→21:40)
[2016-07-19] MEDS: ASPIRIN EC 81 MG TABEC PO SCH (09:17)
[2016-07-19] MEDS: GABAPENTIN 100 MG CAP PO SCH (09:17)
--- NOTE | 2016-07-19 10:26 | HHI.NPPN ---
Subjective General Problems: Anemia, Edema, Hypertension Renal Failure: End Stage Renal Disease History of Present Illness 56-year-old male known to me from before with past medical history of hypertension, diabetes mellitus, morbid obesity, history of end-stage renal disease on hemodialysis who came to the hospital with a complaint of right big toe infection and possibility of rule out osteomyelitis. I was called to see the patient for management of hemodialysis. He has been on hemodialysis Saturday, Saturday and Saturday. Additional Remarks Patient is alert, no SOB, no pain in the leg. Review of Systems General Constitutional: Fatigue Cardiovascular Cardiac: Edema, KUMAR Objective Data Data 07/18/16 07/19/16 19:00 07:00 Intake Total 480 ml 340 ml Output Total 4000 ml 0 ml Balance -3520 ml 340 ml Intake Oral 480 ml 240 ml IV Total 0 ml 100 ml Output Urine Total 0 ml 0 ml Hemodialysis 4000 ml # Voids 1 # Bowel Movements 0 1 Vital Signs Date Time Temp Pulse Resp B/P Pulse Ox O2 Delivery O2 Flow Rate FiO2 07/19/16 08:00 98.4 76 18 115/51 97 07/19/16 03:30 99.3 76 16 102/57 93 07/18/16 23:12 99.4 74 16 112/57 96 07/18/16 20:00 72 07/18/16 19:35 98.4 71 16 102/57 96 07/18/16 19:08 98 21 07/18/16 17:30 98.8 72 16 119/55 99 07/18/16 14:30 98.4 72 16 101/50 100 -: 07/18/16 0546 07/18/16 0546 Physical Exam General Appearance: No Acute Distress, Comfortable Eyes Eye Exam: Pupils Equal Throat Throat Exam: Oral Mucosa Rough And Ready & Moist Pulmonary Resp Exam: Clear Bilaterally, Breath Sounds Equal, No Distress, Decreased Bases Cardiology CV Exam: Regular, Normal Sinus Rhythm Gastrointestinal/Abdomen GI Exam: Soft, Non-Tender, Bowel Sounds Present, Distended Extremeties Extremities Exam: Trace Edema Neurologic Neuro Exam: Alert, Awake, Oriented Psychiatric Psych Exam: Appropriate Responses Assessment/Plan Assessment Summary: Hypertension, End Stage Renal Disease Problem List: (1) Diabetic foot ulcer (2) Peripheral neuropathy (3) Diabetes mellitus type 2, diet-controlled (4) Ulcer of right foot with fat layer exposed (5) Anemia (6) Hypertension (7) End stage renal disease on dialysis Plan Patient has HD yesterday. Hgb. stable, and WBC decreased. Podiatry follow up noted. Going for WBC scan and arterial Doppler. Continue HD as schedule. Further plan after the above test. Problem Qualifiers (1) Diabetic foot ulcer: Qualified Code: E11.621 - Diabetic ulcer of toe of right foot associated with type 2 diabetes mellitus, with necrosis of bone (2) Peripheral neuropathy: Qualified Code: G63 - Polyneuropathy associated with underlying disease (3) Hypertension: Qualified Code: I10 - Essential hypertension Anatoliy Putnam MD Jul 19, 2016 10:26
--- NOTE | 2016-07-19 11:50 | RADRPT ---
EXAM DATE/TIME: 07/18/2016 00:00 [place] COMPARISON: No previous studies available for comparison. INDICATIONS : Right foot infection, ulcer right foot, peripheral neuropathy TECHNIQUE: Four-cuff ankle and brachial pressures were obtained. Pulse cuff waveform tracings of the ankles were recorded, and ankle-brachial indices were calculated. PRESSURES (mmHg): Brachial (arm): Right 115 Left no bp/sticks Ankle: Right 83 Left 135 SYD: Right 0.72 Left 1.17 TBI: Right could not obtain with PPG clip digit too small Left 0.90 CONCLUSION: Limited examination, however slight vascular occlusive disease on the right side is suspected and fur ther characterization with CT angiography and are suggested.. Octavia Hale MD on July 19, 2016 at 11:45 Board Certified Radiologist. This report was verified electronically.
--- NOTE | 2016-07-19 12:40 | RADRPT ---
EXAM DATE/TIME: 07/18/2016 13:46 CORRECTION Corrected on: July 19, 2016; [place] COMPARISON: No previous studies available for comparison. INDICATIONS : Right hallux osteomyelitis. DOSE: 20 mCi Tc99m Ceretec labeled white blood cells IV SPECT IMAGIN hrs, 20 hrs IMAGNG: SPECT/CT imaging with fusion was performed. RADIATION DOSE: 5.42 CTDIvol (mGy) ; Multiple Day Study MEDICAL HISTORY : Hepatitis C. Hypertension. Diabetes mellitus type 2. SURGICAL HISTORY : Arteriovenous shunt. ENCOUNTER: Initial ACUITY: 1 week PAIN SCALE: 2/10 LOCATION: Right great toe. TECHNIQUE: Following the in vitro labeling of autologous white cells and reinjection, whole body scan was perfor med at the specified times. SPECT imaging was performed at the specified time in sagittal, axial and coronal planes. Attenuation correction was performed with the computed tomography and both the atten uation correction and non-attenuation corrected data sets were reviewed. FINDINGS: There is intense uptake involving the right first interphalangeal joint mainly involving the distal p ortion of the first proximal phalanx. There are gas bubbles at the site on the CT portion of the exam . CONCLUSION: There is osteomyelitis involving the right first interphalangeal joint. Octavia Hale MD on July 19, 2016 at 12:33 Board Certified Radiologist. This report was verified electronically. Octavia Hale MD on July 19, 2016 at 12:40 Board Certified Radiologist. This report was verified electronically.
--- NOTE | 2016-07-19 13:55 | PD.VS.CON ---
History of Present Illness Chief Complaint: right toe wound. Consult Requested by: Dr. Rossi History of Present Illness Hx of ESRD on HD and DM with right great to (MT) wound for about 2-3 weeks per the patient. Past/Family/Social History Past Medical History Past Medical History htn dm esrd hd Past Surgical History av fistula Reported Medications Patient's medications listed on EMRreviewed Allergies: Coded Allergies: Metoprolol (Verified Allergy, Severe, Blurred Vision, lightheadedness, nausea, 07/17/16) Norvasc (Verified Allergy, Severe, Blurred Vision, lightheaded, nausea, ) *MDRO Multi-Drug Resistant Organism (Verified Adverse Reaction, Unknown, ) MRSA (wounds) - 2005; (foot) - 12/22/15, 01/12/16, 05/01/16, 07/03/16 Family History grandma - dm, esrd on hd grandpa- esrd on hd mom , grandma- htn Social History no smoking/ no drinking/ no drugs Home Medications Active Scripts Doxycycline Hyclate 100 Mg [id number] Mg PO BID #20 CAP Ref 0 Prov:Tacos Cruz DPM 07/10/16 Reported Medications Gabapentin 100 Mg [id number] Mg PO BID #60 CAP Ref 0 07/17/16 Carvedilol 3.125 Mg Tab3.125 Mg PO HS #60 TAB Ref 0 07/17/16 Atorvastatin (Lipitor)40 Mg Tab40 Mg PO HS #30 TAB Ref 0 01/26/[address] (Ecotrin Low Strength)81 Mg Tabdr81 Mg PO DAILY #30 TAB Ref 0 01/26/16 Calcium Acetate 668 Mg Tab Tid 01/26/16 Discontinued Reported Medications Carvedilol 12.5 Mg Tab12.5 Mg PO BID #60 TAB Ref 0 07/10/16 Isosorbide Mononitrate 20 Mg Tab30 Mg PO DAILY #60 TAB Ref 0 Take 2 doses 7 hours apart. 02/23/16 Gabapentin (Neurontin)300 Mg [id number] Mg PO TID #90 CAP Ref 0 2 times weekly 01/26/16 Omeprazole (Prilosec)10 Mg Cap10 Mg PO HS #30 CAP Ref 0 01/26/16 Pantoprazole (Protonix)40 Mg Tab40 Mg PO DAILY #30 TAB Ref 0 01/26/16 Metoclopramide (Reglan)10 Mg Tab10 Mg PO Q6HR Ref 0 01/26/16 Coded Allergies: Metoprolol (Verified Allergy, Severe, Blurred Vision, lightheadedness, nausea, 07/17/16) Norvasc (Verified Allergy, Severe, Blurred Vision, lightheaded, nausea, ) *MDRO Multi-Drug Resistant Organism (Verified Adverse Reaction, Unknown, ) MRSA (wounds) - 2005; (foot) - 12/22/15, 01/12/16, 05/01/16, 07/03/16 Review of Systems Integumentary: COMPLAINS OF: Abnormal pigmentation, Nail changes, Pruritus, Rash Physical Exam Vitals/I&O Date Time Temp Pulse Resp B/P Pulse Ox O2 Delivery O2 Flow Rate FiO2 07/19/16 12:00 98.5 75 18 108/56 99 07/19/16 09:38 Nasal Cannula 07/19/16 08:00 98.4 76 18 115/51 97 07/19/16 03:30 99.3 76 16 102/57 93 07/18/16 23:12 99.4 74 16 112/57 96 07/18/16 20:00 72 07/18/16 19:35 98.4 71 16 102/57 96 07/18/16 19:08 98 21 07/18/16 17:30 98.8 72 16 119/55 99 07/18/16 14:30 98.4 72 16 101/50 100 07/19/16 07/19/16 07/19/16 07:00 15:00 23:00 Intake Total 0 ml Balance 0 ml Neuro: A/Ox3 Heart: regular Lungs: Decreased at base. No rhonchii Abdomen: Protuberant abdomen, no abdominal bruits. Vascular: Palpable DP bilaterally Left PT palpable Right PT biphasic Extremities: Right great toe swollen discoloration distally. Right 2nd tow with discoloration distally. Date/Time Procedure Status Source Growth 07/17/16 21:30 Gram Stain - Final Complete Wound Foot 07/17/16 21:30 Wound Culture - Final Complete Proteus Mirabilis 07/17/16 20:55 Aerobic Blood Culture - Preliminary Resulted Blood Peripheral NO GROWTH IN 2 DAYS 07/17/16 20:55 Anaerobic Blood Culture - Preliminary Resulted Blood Peripheral NO GROWTH IN 2 DAYS Last 48 hours Impressions Tumor Localization 07/18/16 0000 Signed Impressions: Service Date/Time: Monday, July 18, 2016 13:46 - CONCLUSION: There is osteomyelitis involving the right first interphalangeal joint. Octavia Hale MD Chest X-Ray 07/17/162008 Signed Impressions: Service Date/Time: Sunday, July 17, 2016 20:30 - CONCLUSION: No acute disease. Tacos Downs MD Assessment and Plan Assessment: (1) MRSA infection Status: Acute (2) Diabetic foot ulcer Status: Acute Plan 56 year old male with a right first toe diabetic toe ulcer. Culture of drainage grew MRSA. He has decreased abis on the right but has palpable distal DP. Will get CTA of the aorta with runoff. In the interim, wound care to great toe per podiatry. Blood glucose control and antibiotics. Will follow up after CTA. Matty Alonso DO, FACS [employer] Vascular Surgery /[place] Problem Qualifiers (1) Diabetic foot ulcer: Qualified Code: E11.621 - Diabetic ulcer of toe of right foot associated with type 2 diabetes mellitus, with necrosis of bone Matty Alonso DO Jul 19, 2016 13:55
--- NOTE | 2016-07-19 15:43 | PD.WOU.PN ---
Patient Intake Chief Complaint Infected right hallux Consult Requested by Dr. López Reason for Consult Evaluation and treatment of right hallux infection Primary Care Physician Non-Staff History of Present Illness Patient is a 56 year-old -[place] male on hemodialysis with diabetes. I have been following him in the wound Center for an ulceration of the first met head of the right foot. Saturday he came into the wound center with an infected right hallux. The infection and new ulceration of the toe probe to bone and he was sent to [facility] for admission and evaluation. Ceretec labeled white blood cell scan finished today shows osteomyelitis of the proximal phalanx. ABIs were decreased and I ordered a vascular consult. Patient is scheduled for a CTA. Coded Allergies: Metoprolol (Verified Allergy, Severe, Blurred Vision, lightheadedness, nausea, 07/17/16) Norvasc (Verified Allergy, Severe, Blurred Vision, lightheaded, nausea, ) *MDRO Multi-Drug Resistant Organism (Verified Adverse Reaction, Unknown, ) MRSA (wounds) - 2005; (foot) - 12/22/15, 01/12/16, 05/01/16, 07/03/16 Preferred Language to Discuss: Urdu Barriers to Learning: None Teaching Method: Discussion Vital Signs Date Time Temp Pulse Resp B/P Pulse Ox O2 Delivery O2 Flow Rate FiO2 07/19/16 12:00 98.5 75 18 108/56 99 07/19/16 09:38 Nasal Cannula 07/19/16 08:00 70 07/19/16 08:00 98.4 76 18 115/51 97 07/19/16 03:30 99.3 76 16 102/57 93 07/18/16 23:12 99.4 74 16 112/57 96 07/18/16 20:00 72 07/18/16 19:35 98.4 71 16 102/57 96 07/18/16 19:08 98 21 07/18/16 17:30 98.8 72 16 119/55 99 Pain scale used: 0-10 numeric scale Pain score: 1 Medications Current Medications Vancomycin HCl 1000 mg/Sodium Chloride 250 ml @ 250 mls/hr ONCE ONCE IV Last administered on 07/17/16t 22:14; Start 07/17/16 at 20:15; Stop 07/17/16 at 21:14 ; Status DC Piperacillin Sod/ Tazobactam Sod (Zosyn 3.375 Gm Premix) 50 ml @ 100 mls/hr ONCE ONCE IV Last administered on 07/17/16 22:14; Start 07/17/16 at 20:15; Stop 07/17/16 at 20:44; Status DC Ondansetron HCl (Zofran Inj) 4 mg ONCE ONCE IV Last administered on 07/17/16 22:14; Start 07/17/16 at 22:15; Stop 07/17/16 at 22:16; Status DC Ondansetron HCl (Zofran Inj) 4 mg STK-MED ONCE .ROUTE ; Start 07/17/16 at 22:12 ; Stop 07/17/16 at 22:13; Status DC Sodium Chloride (NS Flush) 2 ml UNSCH PRN IV FLUSH FLUSH AFTER USING IV ACCESS ; Start 07/17/16 at 23:00 Sodium Chloride (NS Flush) 2 ml BID IV FLUSH Last administered on 07/19/16 09: 00; Start 07/18/16 at 09:00 Ondansetron HCl (Zofran Inj) 4 mg Q6H PRN IVP NAUSEA OR VOMITING; Start at 23:00 Naloxone HCl 0.4 mg 0.4 mg UNSCH PRN IV SEE LABEL COMMENTS; Start 07/17/16 at 23:00 Piperacillin Sod/ Tazobactam Sod 100 ml @ 200 mls/hr Q6H IV ; Start 07/18/16 at 05:00; Status UNV Piperacillin Sod/ Tazobactam Sod (Zosyn 2.25 Gm Premix) 50 ml @ 100 mls/hr Q8H IV Last administered on 07/19/16 12:46; Start 07/18/16 at 05:00 Aspirin (Ecotrin Ec) 81 mg DAILY PO Last administered on 07/19/16 09:17; Start 07/18/16 at 09:00 Atorvastatin Calcium (Lipitor) 40 mg HS PO Last administered on 07/18/16 22:25 ; Start 07/18/16 at 21:00 Carvedilol (Coreg) 3.125 mg HS PO ; Start 07/18/16 at 21:00 Gabapentin (Neurontin) 200 mg Q24H PO Last administered on 07/19/16 09:17; Start 07/18/16 at 09:00 Heparin Sodium (Porcine) 5000 units 5,000 units Q8HR SQ Last administered on 12:46; Start 07/18/16 at 14:00 Sodium Chloride (NS 1000 ml Inj) 1,000 ml @ 0 mls/hr Q0M PRN IV For Prime & Rinse Back; Start 07/18/16 at 11:31 Heparin Sodium (Porcine) 8000 units 8,000 units UNSCH PRN IVF WITH DIALYSIS; Start 07/18/16 at 11:45 Sodium Chloride 1,000 ml @ 200 mls/hr Q5H PRN IV WITH DIALYSIS; Start 07/18/16 at 11:31 Sodium Chloride (NS 1000 ml Inj) 1,000 ml @ 0 mls/hr Q0M PRN IV WITH DIALYSIS; Start 07/18/16 at 11:31 Mannitol (Mannitol Inj) 12.5 gm UNSCH PRN IV WITH DIALYSIS; Start 07/18/16 at 11:45 Albumin Human (Albumin 25% Inj) 25 gm UNSCH PRN IV WITH DIALYSIS; Start at 11:45 Sodium Chloride (NS Flush) 5 ml UNSCH PRN IV FLUSH WITH DIALYSIS; Start at 11:45 Heparin Sodium (Porcine) (Heparin Inj) UNSCH PRN .XX WITH DIALYSIS; Start at 11:45 Gentamicin Sulfate (Gentamicin (Dialysis) Inj) 20 mg UNSCH PRN IV WITH DIALYSIS ; Start 07/18/16 at 11:45 Ondansetron HCl (Zofran Inj) 4 mg UNSCH PRN IV WITH DIALYSIS; Start 07/18/16 at 11:45 Acetaminophen (Tylenol) 650 mg UNSCH PRN PO for headach, pain 1-10,T> 101F; Start 07/18/16 at 11:45 Diphenhydramine HCl (Benadryl) 25 mg UNSCH PRN PO for hives/itching/anaphylaxis ; Start 07/18/16 at 11:45 Nitroglycerin (Nitrostat Sl) 0.4 mg UNSCH PRN SL CHEST PAIN; Start 07/18/16 at 11:45 Clonidine (Catapres) 0.1 mg UNSCH PRN PO for BP > 180/100 X 2 readings; Start 07/18/16 at 11:45 Epoetin Chris (Epogen Inj) 6,000 units UNSCH PRN IV WITH DIALYSIS Last administered on 07/18/16t 12:00; Start 07/18/16 at 11:45 Gelatin (Gelfoam 12 Mm/7 Mm Top) 1 foam UNSCH PRN TOP SEE LABEL COMMENTS; Start 07/18/16 at 11:45 Past, Family & Social History Past Medical History HEENT: REPORTS HX OF: Cataracts Endocrine: REPORTS HX OF: Diabetes mellitus (diabetic control) Cardiovascular: REPORTS HX OF: Hyperlipidemia, Hypertension Genitourinary: REPORTS HX OF: Hemodialysis, Kidney failure (stage 5) Infectious disease: REPORTS HX OF: Chickenpox (as a child), Measles (as a child ), Mumps (as a child) Neurologic: REPORTS HX OF: Peripheral neuropathy Disabilities: REPORTS HX OF: Vision deficit (reading glasses) Past Surgical History HEENT: REPORTS HX OF: Cataract extraction Gastrointestinal: REPORTS HX OF: Colectomy, total Genitourinary: REPORTS HX OF: Other surgery Family Medical History Patient History: Unknown G8 FATHER G8 MOTHER Substance Use Substance use: Denies use Review of Systems Notes No changes of his 14 point review of systems exam since he was seen yesterday Genitourinary: COMPLAINS OF: Renal disease, Dialysis Wound Assessment Vascular Assessment R Dorsails Pedis: Doppler L Dorsails Pedis: Doppler R Posterior Tibial: Doppler Sensation of Left Extremity: Diminished Sensation of Right Extremity: Diminished Wound Information - Wound One Wound Location: Right plantar foot of first metatarsal Wound Type: Diabetic Ulcer Classification: FT- full thickness Exudate: Low Exudate Type: Serosanguineous Debridement: No Fibrin Amount: None Granulation Tissue Color: Pale / Irene Granulation Tissue Texture: Firm Exposed: No exposed bone, muscle, tendon Periwound Appearance: FINDINGS: Normal Wound Two Wound Location: Right lateral Great toe Wound Type: Diabetic Ulcer Classification: FT- full thickness Exudate: Low Exudate Type: Serosanguineous Debridement: No Fibrin Amount: Mild Granulation Tissue Color: [place] Granulation Tissue Texture: Spongy Exposed: No exposed bone, muscle, tendon Eschar: No Odor: No Wound Three Wound Location: Right medial great toe Wound Type: Diabetic Ulcer Classification: Bone/Tendon Present Exudate: Moderate Exudate Type: Purulent Debridement: No Fibrin Amount: Mild Granulation Tissue Color: Pale / Irene Granulation Tissue Texture: Spongy Exposed: Bone Eschar: No Odor: Yes Periwound Appearance: FINDINGS: Normal Lab and Radiology Results Laboratory Laboratory Tests Test 07/17/16 07/18/16 20:55 05:46 White Blood Count 11.2 TH/MM3 9.6 TH/MM3 Red Blood Count 3.42 MIL/MM3 3.40 MIL/MM3 Hemoglobin 10.3 GM/DL 10.2 GM/DL Hematocrit 32.6 % 32.8 % Mean Corpuscular Volume 95.5 FL 96.3 FL Mean Corpuscular Hemoglobin 30.1 PG 29.9 PG Mean Corpuscular Hemoglobin 31.5 % 31.0 % Concent Red Cell Distribution Width 14.1 % 13.7 % Platelet Count 306 TH/MM3 271 TH/MM3 Mean Platelet Volume 8.3 FL 8.3 FL Neutrophils (%) (Auto) 77.2 % 75.8 % Lymphocytes (%) (Auto) 11.0 % 12.9 % Monocytes (%) (Auto) 10.0 % 9.4 % Eosinophils (%) (Auto) 1.2 % 1.6 % Basophils (%) (Auto) 0.6 % 0.3 % Neutrophils # (Auto) 8.7 TH/MM3 7.3 TH/MM3 Lymphocytes # (Auto) 1.2 TH/MM3 1.2 TH/MM3 Monocytes # (Auto) 1.1 TH/MM3 0.9 TH/MM3 Eosinophils # (Auto) 0.1 TH/MM3 0.2 TH/MM3 Basophils # (Auto) 0.1 TH/MM3 0.0 TH/MM3 CBC Comment DIFF FINAL DIFF FINAL Differential Comment Erythrocyte Sedimentation Rate 91 mm/hr Laboratory Tests Test 07/17/16 07/18/16 20:55 05:46 Sodium Level 133 MEQ/L 138 MEQ/L Potassium Level 5.6 MEQ/L 4.0 MEQ/L Chloride Level 96 MEQ/L 99 MEQ/L Carbon Dioxide Level 28.5 MEQ/L 26.3 MEQ/L Anion Gap 9 MEQ/L 13 MEQ/L Blood Urea Nitrogen 49 MG/DL 56 MG/DL Creatinine 10.34 MG/DL 11.15 MG/DL Estimat Glomerular Filtration 6 ML/MIN 6 ML/MIN Rate Random Glucose 84 MG/DL 139 MG/DL Calcium Level 9.5 MG/DL 9.1 MG/DL Total Bilirubin 0.5 MG/DL Aspartate Amino Transf 40 U/L (AST/SGOT) Alanine Aminotransferase 21 U/L (ALT/SGPT) Alkaline Phosphatase 60 U/L C-Reactive Protein 4.68 MG/DL Total Protein 8.8 GM/DL Albumin 3.1 GM/DL Microbiology Date/Time Procedure Status Source Growth 07/17/16 20:50 Aerobic Blood Culture - Preliminary Resulted Blood Peripheral NO GROWTH IN 2 DAYS 07/17/16 20:50 Anaerobic Blood Culture - Preliminary Resulted Blood Peripheral NO GROWTH IN 2 DAYS 07/17/16 20:55 Aerobic Blood Culture - Preliminary Resulted Blood Peripheral NO GROWTH IN 2 DAYS 07/17/16 20:55 Anaerobic Blood Culture - Preliminary Resulted Blood Peripheral NO GROWTH IN 2 DAYS 07/17/16 21:30 Gram Stain - Final Complete Wound Foot 07/17/16 21:30 Wound Culture - Final Complete Proteus Mirabilis Radiology Last Impressions Tumor Localization 07/18/16 0000 Signed Impressions: Service Date/Time: Monday, July 18, 2016 13:46 - CONCLUSION: There is osteomyelitis involving the right first interphalangeal joint. Octavia Hale MD Chest X-Ray 07/17/162008 Signed Impressions: Service Date/Time: Sunday, July 17, 2016 20:30 - CONCLUSION: No acute disease. Tacos Downs MD Assessment/Plan Problem List: (1) Chronic renal failure Status: Chronic (2) Ulcer of right foot with fat layer exposed Status: Acute (3) Diabetes mellitus type 2, diet-controlled Status: Chronic (4) Peripheral neuropathy Status: Chronic (5) End stage renal disease on dialysis Status: Chronic (6) Neuropathic diabetic ulcer of foot Status: Chronic (7) Osteomyelitis of toe of right foot Status: Acute (8) Diabetic foot ulcer Status: Acute Additional Plans & Procedures PLAN: I will schedule the patient for amputation of the right hallux on Saturday. He will have hemodialysis on Saturday. He will undergo CTA. Discussed patient with Dr. López. We'll continue to follow. We'll write preop orders on Saturday. Problem Qualifiers (1) Chronic renal failure: Qualified Code: N18.4 - Chronic renal failure, stage 4 (severe) (2) Peripheral neuropathy: Qualified Code: G63 - Polyneuropathy associated with underlying disease (3) Diabetic foot ulcer: Qualified Code: E11.621 - Diabetic ulcer of toe of right foot associated with type 2 diabetes mellitus, with necrosis of bone Tacos Cruz DPM Jul 19, 2016 15:43
--- NOTE | 2016-07-19 16:02 | HHI.PR ---
Subjective Remarks patient denies cp/sob denies fevers/chills stable vital signs Patient complaining of diarrhea. Objective Vitals Vital Signs Date Time Temp Pulse Resp B/P Pulse Ox O2 Delivery O2 Flow Rate FiO2 07/19/16 12:00 98.5 75 18 108/56 99 07/19/16 09:38 Nasal Cannula 07/19/16 08:00 70 07/19/16 08:00 98.4 76 18 115/51 97 07/19/16 03:30 99.3 76 16 102/57 93 07/18/16 23:12 99.4 74 16 112/57 96 07/18/16 20:00 72 07/18/16 19:35 98.4 71 16 102/57 96 07/18/16 19:08 98 21 07/18/16 17:30 98.8 72 16 119/55 99 I/O 07/18/16 07/18/16 07/18/16 07/19/16 07/19/16 07/19/16 07:00 15:00 23:00 07:00 15:00 23:00 Intake Total 240 ml 480 ml 340 ml 0 ml Output Total 0 ml 4000 ml 0 ml Balance 240 ml -3520 ml 340 ml 0 ml Intake Oral 240 ml 480 ml 240 ml 0 ml IV Total 0 ml 100 ml Output Urine Total 0 ml 0 ml 0 ml Hemodialysis 4000 ml # Voids 1 # Bowel Movements 0 0 0 1 Result Diagram: 07/18/16 0546 07/18/16 0546 Imaging Last Impressions Tumor Localization 07/18/16 0000 Signed Impressions: Service Date/Time: Monday, July 18, 2016 13:46 - CONCLUSION: There is osteomyelitis involving the right first interphalangeal joint. Octavia Hale MD Chest X-Ray 07/17/162008 Signed Impressions: Service Date/Time: Sunday, July 17, 2016 20:30 - CONCLUSION: No acute disease. Tacos Downs MD Objective Remarks GENERAL: This is a well-nourished, well-developed patient, in no apparent distress. SKIN: No rashes, ecchymoses or lesions. Cool and dry. HEAD: Atraumatic. Normocephalic. No temporal or scalp tenderness. EYES: No scleral icterus. No injection or drainage. ENT: Nose without bleeding, purulent drainage or septal hematoma. Airway patent. NECK: Trachea midline. No JVD CARDIOVASCULAR: Regular rate and rhythm without murmurs, gallops, or rubs. RESPIRATORY: Clear to auscultation. Breath sounds equal bilaterally. No wheezes , rales, or rhonchi. GASTROINTESTINAL: Abdomen soft, non-tender, nondistended. No guarding. MUSCULOSKELETAL: Extremities without clubbing, cyanosis, or edema. No calf tenderness. Right plantar foot with open wound. Right big toe with significant swelling, pain, surrounding erythema. NEUROLOGICAL: Awake and alert. Motor and sensory grossly within normal limits. Normal speech. Medications and IVs Current Medications Medications (Trade) Dose Ordered Sig/Denisa Route Start Time Stop Time Status Last Admin (NS Flush) 2 ml UNSCH PRN IV FLUSH 07/17/16 23:00 (NS Flush) 2 ml BID IV FLUSH 07/18/16 09:00 07/19/16 09:00 (Zofran Inj) 4 mg Q6H PRN IVP 07/17/16 23:00 Naloxone HCl 0.4 mg 0.4 mg UNSCH PRN IV 07/17/16 23:00 (Zosyn 2.25 Gm Premix) 50 ml @ 100 mls/hr Q8H IV 07/18/16 05:00 07/19/16 12:46 (Ecotrin Ec) 81 mg DAILY PO 07/18/16 09:00 07/19/16 09:17 (Lipitor) 40 mg HS PO 07/18/16 21:00 07/18/16 22:25 (Coreg) 3.125 mg HS PO 07/18/16 21:00 (Neurontin) 200 mg Q24H PO 07/18/16 09:00 07/19/16 09:17 Heparin Sodium (Porcine) 5000 units 5,000 units Q8HR SQ 07/18/16 14:00 07/19/16 12:46 (NS 1000 ml Inj) 1,000 ml @ 0 mls/hr Q0M PRN IV 07/18/16 11:31 Heparin Sodium (Porcine) 8000 units 8,000 units UNSCH PRN IVF 07/18/16 11:45 Sodium Chloride 1,000 ml @ 200 mls/hr Q5H PRN IV 07/18/16 11:31 (NS 1000 ml Inj) 1,000 ml @ 0 mls/hr Q0M PRN IV 07/18/16 11:31 (Mannitol Inj) 12.5 gm UNSCH PRN IV 07/18/16 11:45 (Albumin 25% Inj) 25 gm UNSCH PRN IV 07/18/16 11:45 (NS Flush) 5 ml UNSCH PRN IV FLUSH 07/18/16 11:45 (Heparin Inj) UNSCH PRN .XX 07/18/16 11:45 (Gentamicin (Dialysis) Inj) 20 mg UNSCH PRN IV 07/18/16 11:45 (Zofran Inj) 4 mg UNSCH PRN IV 07/18/16 11:45 (Tylenol) 650 mg UNSCH PRN PO 07/18/16 11:45 (Benadryl) 25 mg UNSCH PRN PO 07/18/16 11:45 (Nitrostat Sl) 0.4 mg UNSCH PRN SL 07/18/16 11:45 (Catapres) 0.1 mg UNSCH PRN PO 07/18/16 11:45 (Epogen Inj) 6,000 units UNSCH PRN IV 07/18/16 11:45 07/18/16 12:00 (Gelfoam 12 Mm/7 Mm Top) 1 foam UNSCH PRN TOP 07/18/16 11:45 Urinary Catheter: No Vascular Central Line Catheter: No A/P Problem List: (1) Osteomyelitis of toe of right foot ICD Code: M86.9 Status: Acute Plan: Confirmed by [facility] white blood cell tagged study. Podiatry consulted, discussed the case with Dr. Cruz. The patient will be scheduled for surgery on 07/21/16. ABIs ordered by me yesterday. Results show decrease ABIs on the right lower extremity. Medical surgery has been consulted by podiatry. Vascular surgery recommends a CTA with runoff. Follow-up recommendations. Wound cultures is growing Proteus mirabilis. DC IV Zosyn and switch to IV Rocephin. (2) Diabetic foot ulcer ICD Code: E11.621 Status: Acute Plan: As above. (3) Peripheral neuropathy ICD Code: G62.9 Status: Chronic Plan: seems stable. Continue gabapentin. (4) End stage renal disease on dialysis ICD Code: N18.6 Status: Chronic Plan: On hemodialysis schedule on Mondays and Saturday. Continue hemodialysis per nephrology recommendations. (5) Diabetes mellitus type 2, diet-controlled ICD Code: E11.9 Status: Chronic Plan: Patient's last hemoglobin A1c in October 2015 was 5.6. I will recheck hemoglobin A1c. Monitor Accu-Cheks and place on SSI with insulin NovoLog as needed. (6) Hypertension ICD Code: I10 Status: Acute Plan: Blood pressure seems to be very stable. Continue Coreg. (7) Diarrhea ICD Code: R19.7 Status: Acute Plan: Check stool for C. difficile. Assessment and Plan DVT prophylaxis: Heparin subcutaneous. Problem Qualifiers (1) Diabetic foot ulcer: Qualified Code: E11.621 - Diabetic ulcer of toe of right foot associated with type 2 diabetes mellitus, with necrosis of bone (2) Peripheral neuropathy: Qualified Code: G63 - Polyneuropathy associated with underlying disease (3) Hypertension: Qualified Code: I10 - Essential hypertension (4) Diarrhea: Qualified Code: R19.7 - Diarrhea, unspecified type Dru Dallas MD Jul 19, 2016 16:02
[2016-07-19 19:30] LABS: C. DIFF EPI 027 PRESUMPTIVE NEGATIVE (NEGATIVE); C. DIFF TOXIN PCR NEGATIVE (NEGATIVE)
[2016-07-19] MEDS: ATORVASTATIN 40 MG TAB PO SCH (21:38)
[2016-07-19] MEDS: CARVEDILOL 3.125 MG TAB PO SCH (21:39)
[2016-07-20 02:56] VITALS: O2SAT 99
[2016-07-20] MEDS: HEPARIN SODIUM - SQ 10,000 UNITS/ML VIAL SQ SCH ×3 (05:40→20:26)
[2016-07-20] MEDS: PIPERACIL-TAZO 2.25 GM PREMIX 50 ML IV SCH ×3 (05:40→20:27)
[2016-07-20 05:50] VITALS: BP 97/55; PULSE 71; RESP 16; TEMP 98.7; O2SAT 97
[2016-07-20 07:17] LABS: HEMATOCRIT 33.4 % (39.0-51.0); MEAN CELL VOLUME 94.8 FL (80.0-100.0); MEAN CORPUSCULAR HEMOGLOBIN 29.7 PG (27.0-34.0); MEAN CORPUSCULAR HGB CONC 31.3 % (32.0-36.0); PLATELET COUNT 268 TH/MM3 (150-450); RED BLOOD COUNT 3.53 MIL/MM3 (4.50-5.90); RED CELL DISTRIBUTION WIDTH 13.8 % (11.6-17.2); REVIEW FLAG FINAL; WHITE BLOOD COUNT 8.2 TH/MM3 (4.0-11.0)
[2016-07-20 08:05] LABS: BICARBONATE 28.4 MEQ/L (21.0-32.0); POTASSIUM 4.2 MEQ/L (3.5-5.1)
[2016-07-20] MEDS: GABAPENTIN 100 MG CAP PO SCH (08:08)
[2016-07-20] MEDS: ASPIRIN EC 81 MG TABEC PO SCH (08:08)
[2016-07-20] MEDS: SODIUM CHLORIDE 0.9% FLUSH 10 ML FLUSH IV FLUSH SCH ×2 (08:08→20:27)
--- NOTE | 2016-07-20 12:28 | HHI.NPPN ---
Subjective General Problems: Anemia, Edema, Hypertension Renal Failure: End Stage Renal Disease History of Present Illness 56-year-old male known to me from before with past medical history of hypertension, diabetes mellitus, morbid obesity, history of end-stage renal disease on hemodialysis who came to the hospital with a complaint of right big toe infection and possibility of rule out osteomyelitis. I was called to see the patient for management of hemodialysis. He has been on hemodialysis Saturday, Saturday and Saturday. Additional Remarks Patient is alert, no SOB, no pain in the leg. Review of Systems General Constitutional: Fatigue Cardiovascular Cardiac: Edema, KUMAR Objective Data Data 07/19/16 07/20/16 19:00 07:00 Intake Total 645 ml 360 ml Balance 645 ml 360 ml Intake Oral 600 ml 360 ml IV Total 45 ml # Voids 2 3 # Bowel Movements 1 2 Vital Signs Date Time Temp Pulse Resp B/P Pulse Ox O2 Delivery O2 Flow Rate FiO2 07/20/16 05:50 98.7 71 16 97/55 97 07/20/16 02:56 99 07/19/16 23:37 98.1 85 16 136/56 99 07/19/16 20:00 77 07/19/16 19:30 97.7 71 16 106/81 97 07/19/16 16:00 98.0 83 18 116/58 97 -: 07/20/16 0605 07/20/16 0605 Physical Exam General Appearance: No Acute Distress, Comfortable Eyes Eye Exam: Pupils Equal Throat Throat Exam: Oral Mucosa [place] & Moist Pulmonary Resp Exam: Clear Bilaterally, Breath Sounds Equal, No Distress, Decreased Bases Cardiology CV Exam: Regular, Normal Sinus Rhythm Gastrointestinal/Abdomen GI Exam: Soft, Non-Tender, Bowel Sounds Present, Distended Extremeties Extremities Exam: Trace Edema Neurologic Neuro Exam: Alert, Awake, Oriented Psychiatric Psych Exam: Appropriate Responses Assessment/Plan Assessment Summary: Hypertension, End Stage Renal Disease Problem List: (1) Diabetic foot ulcer (2) Peripheral neuropathy (3) Diabetes mellitus type 2, diet-controlled (4) Ulcer of right foot with fat layer exposed (5) Anemia (6) Hypertension (7) End stage renal disease on dialysis Plan Patient has HD yesterday. Hgb. stable, and WBC decreased. Podiatry follow up noted. Going for WBC scan and arterial Doppler. Continue HD as schedule. Further plan after the above test. Problem Qualifiers (1) Diabetic foot ulcer: Qualified Code: E11.621 - Diabetic ulcer of toe of right foot associated with type 2 diabetes mellitus, with necrosis of bone (2) Peripheral neuropathy: Qualified Code: G63 - Polyneuropathy associated with underlying disease (3) Hypertension: Qualified Code: I10 - Essential hypertension Anatoliy Putnam MD Jul 20, 2016 12:28
[2016-07-20] MEDS: EPOETIN ALFA 10,000 UNITS/ML VIAL IV PRN (13:08)
--- NOTE | 2016-07-20 13:27 | PD.WOU.PN ---
Patient Intake Chief Complaint Ulceration and osteomyelitis of the left hallux Consult Requested by Reason for Consult Treatment of osteomyelitis left hallux Primary Care Physician Non-Staff History of Present Illness 56-year-old diabetic male on hemodialysis with osteomyelitis of the left hallux. Patient seen today in hemodialysis. Cerete bone scan was positive for osteomyelitis. Patient has been seen by the vascular surgeon and a CTA has been ordered. Coded Allergies: Metoprolol (Verified Allergy, Severe, Blurred Vision, lightheadedness, nausea, 07/17/16) Norvasc (Verified Allergy, Severe, Blurred Vision, lightheaded, nausea, ) *MDRO Multi-Drug Resistant Organism (Verified Adverse Reaction, Unknown, ) MRSA (wounds) - 2005; (foot) - 12/22/15, 01/12/16, 05/01/16, 07/03/16 Preferred Language to Discuss: Uzbek Barriers to Learning: None Teaching Method: Discussion Vital Signs Date Time Temp Pulse Resp B/P Pulse Ox O2 Delivery O2 Flow Rate FiO2 07/20/16 05:50 98.7 71 16 97/55 97 07/20/16 02:56 99 07/19/16 23:37 98.1 85 16 136/56 99 07/19/16 20:00 77 07/19/16 19:30 97.7 71 16 106/81 97 07/19/16 16:00 98.0 83 18 116/58 97 Pain scale used: 0-10 numeric scale Pain score: 0 Medications Current Medications Vancomycin HCl 1000 mg/Sodium Chloride 250 ml @ 250 mls/hr ONCE ONCE IV Last administered on 07/17/16 22:14; Start 07/17/16 at 20:15; Stop 07/17/16 at 21:14 ; Status DC Piperacillin Sod/ Tazobactam Sod (Zosyn 3.375 Gm Premix) 50 ml @ 100 mls/hr ONCE ONCE IV Last administered on 07/17/16 22:14; Start 07/17/16 at 20:15; Stop 07/17/16 at 20:44; Status DC Ondansetron HCl (Zofran Inj) 4 mg ONCE ONCE IV Last administered on 07/17/16 22:14; Start 07/17/16 at 22:15; Stop 07/17/16 at 22:16; Status DC Ondansetron HCl (Zofran Inj) 4 mg STK-MED ONCE .ROUTE ; Start 07/17/16 at 22:12 ; Stop 07/17/16 at 22:13; Status DC Sodium Chloride (NS Flush) 2 ml UNSCH PRN IV FLUSH FLUSH AFTER USING IV ACCESS ; Start 07/17/16 at 23:00 Sodium Chloride (NS Flush) 2 ml BID IV FLUSH Last administered on 07/20/16 08: 08; Start 07/18/16 at 09:00 Ondansetron HCl (Zofran Inj) 4 mg Q6H PRN IVP NAUSEA OR VOMITING; Start at 23:00 Naloxone HCl 0.4 mg 0.4 mg UNSCH PRN IV SEE LABEL COMMENTS; Start 07/17/16 at 23:00 Piperacillin Sod/ Tazobactam Sod 100 ml @ 200 mls/hr Q6H IV ; Start 07/18/16 at 05:00; Status UNV Piperacillin Sod/ Tazobactam Sod (Zosyn 2.25 Gm Premix) 50 ml @ 100 mls/hr Q8H IV Last administered on 07/20/16 05:40; Start 07/18/16 at 05:00 Aspirin (Ecotrin Ec) 81 mg DAILY PO Last administered on 07/20/16 08:08; Start 07/18/16 at 09:00 Atorvastatin Calcium (Lipitor) 40 mg HS PO Last administered on 07/19/16 21:38 ; Start 07/18/16 at 21:00 Carvedilol (Coreg) 3.125 mg HS PO Last administered on 07/19/16 21:39; Start 07/18/16 at 21:00 Gabapentin (Neurontin) 200 mg Q24H PO Last administered on 07/20/16 08:08; Start 07/18/16 at 09:00 Heparin Sodium (Porcine) 5000 units 5,000 units Q8HR SQ Last administered on 05:40; Start 07/18/16 at 14:00 Sodium Chloride (NS 1000 ml Inj) 1,000 ml @ 0 mls/hr Q0M PRN IV For Prime & Rinse Back; Start 07/18/16 at 11:31 Heparin Sodium (Porcine) 8000 units 8,000 units UNSCH PRN IVF WITH DIALYSIS; Start 07/18/16 at 11:45 Sodium Chloride 1,000 ml @ 200 mls/hr Q5H PRN IV WITH DIALYSIS; Start 07/18/16 at 11:31 Sodium Chloride (NS 1000 ml Inj) 1,000 ml @ 0 mls/hr Q0M PRN IV WITH DIALYSIS; Start 07/18/16 at 11:31 Mannitol (Mannitol Inj) 12.5 gm UNSCH PRN IV WITH DIALYSIS; Start 07/18/16 at 11:45 Albumin Human (Albumin 25% Inj) 25 gm UNSCH PRN IV WITH DIALYSIS; Start at 11:45 Sodium Chloride (NS Flush) 5 ml UNSCH PRN IV FLUSH WITH DIALYSIS; Start at 11:45 Heparin Sodium (Porcine) (Heparin Inj) UNSCH PRN .XX WITH DIALYSIS; Start at 11:45 Gentamicin Sulfate (Gentamicin (Dialysis) Inj) 20 mg UNSCH PRN IV WITH DIALYSIS ; Start 07/18/16 at 11:45 Ondansetron HCl (Zofran Inj) 4 mg UNSCH PRN IV WITH DIALYSIS; Start 07/18/16 at 11:45 Acetaminophen (Tylenol) 650 mg UNSCH PRN PO for headach, pain 1-10,T> 101F; Start 07/18/16 at 11:45 Diphenhydramine HCl (Benadryl) 25 mg UNSCH PRN PO for hives/itching/anaphylaxis ; Start 07/18/16 at 11:45 Nitroglycerin (Nitrostat Sl) 0.4 mg UNSCH PRN SL CHEST PAIN; Start 07/18/16 at 11:45 Clonidine (Catapres) 0.1 mg UNSCH PRN PO for BP > 180/100 X 2 readings; Start 07/18/16 at 11:45 Epoetin Chris (Epogen Inj) 6,000 units UNSCH PRN IV WITH DIALYSIS Last administered on 07/20/16t 13:08; Start 07/18/16 at 11:45 Gelatin (Gelfoam 12 Mm/7 Mm Top) 1 foam UNSCH PRN TOP SEE LABEL COMMENTS; Start 07/18/16 at 11:45 Past, Family & Social History Past Medical History HEENT: REPORTS HX OF: Cataracts Endocrine: REPORTS HX OF: Diabetes mellitus (diabetic control) Cardiovascular: REPORTS HX OF: Hyperlipidemia, Hypertension Genitourinary: REPORTS HX OF: Hemodialysis, Kidney failure (stage 5) Infectious disease: REPORTS HX OF: Chickenpox (as a child), Measles (as a child ), Mumps (as a child) Neurologic: REPORTS HX OF: Peripheral neuropathy Disabilities: REPORTS HX OF: Vision deficit (reading glasses) Past Surgical History HEENT: REPORTS HX OF: Cataract extraction Gastrointestinal: REPORTS HX OF: Colectomy, total Genitourinary: REPORTS HX OF: Other surgery Family Medical History Patient History: Unknown G8 FATHER G8 MOTHER Substance Use Substance use: Denies use Review of Systems Notes No changes in his 14 point review of systems exam since yesterday Wound Assessment Vascular Assessment R Dorsails Pedis: Doppler L Dorsails Pedis: Doppler R Posterior Tibial: Doppler L Posterior Tibial: Doppler Sensation of Left Extremity: Diminished Sensation of Right Extremity: Diminished Wound Information - Wound One Wound Location: Right plantar foot of first metatarsal Wound Type: Diabetic Ulcer Classification: FT- full thickness Wound Two Wound Location: Right lateral Great toe Wound Type: Diabetic Ulcer Classification: Bone/Tendon Present Debridement: No Wound Three Wound Location: Right medial great toe Wound Type: Diabetic Ulcer Classification: Bone/Tendon Present Debridement: No Lab and Radiology Results Laboratory Laboratory Tests Test 07/20/16 06:05 White Blood Count 8.2 TH/MM3 Red Blood Count 3.53 MIL/MM3 Hemoglobin 10.5 GM/DL Hematocrit 33.4 % Mean Corpuscular Volume 94.8 FL Mean Corpuscular Hemoglobin 29.7 PG Mean Corpuscular Hemoglobin 31.3 % Concent Red Cell Distribution Width 13.8 % Platelet Count 268 TH/MM3 Mean Platelet Volume 8.3 FL Laboratory Tests Test 07/20/16 06:05 Sodium Level 136 MEQ/L Potassium Level 4.2 MEQ/L Chloride Level 96 MEQ/L Carbon Dioxide Level 28.4 MEQ/L Anion Gap 12 MEQ/L Blood Urea Nitrogen 63 MG/DL Creatinine 13.27 MG/DL Estimat Glomerular Filtration 5 ML/MIN Rate Random Glucose 107 MG/DL Calcium Level 9.1 MG/DL Microbiology Date/Time Procedure Status Source Growth 07/17/16 20:50 Aerobic Blood Culture - Preliminary Resulted Blood Peripheral NO GROWTH IN 3 DAYS 07/17/16 20:50 Anaerobic Blood Culture - Preliminary Resulted Blood Peripheral NO GROWTH IN 3 DAYS 07/17/16 20:55 Aerobic Blood Culture - Preliminary Resulted Blood Peripheral NO GROWTH IN 3 DAYS 07/17/16 20:55 Anaerobic Blood Culture - Preliminary Resulted Blood Peripheral NO GROWTH IN 3 DAYS 07/17/16 21:30 Gram Stain - Final Complete Wound Foot 07/17/16 21:30 Wound Culture - Final Complete Proteus Mirabilis Radiology Last Impressions Tumor Localization 07/18/16 0000 Signed Impressions: Service Date/Time: Monday, July 18, 2016 13:46 - CONCLUSION: There is osteomyelitis involving the right first interphalangeal joint. Octavia Hale MD Chest X-Ray 07/17/162008 Signed Impressions: Service Date/Time: Sunday, July 17, 2016 20:30 - CONCLUSION: No acute disease. Tacos Downs MD Assessment/Plan Problem List: (1) Chronic renal failure Status: Chronic (2) Ulcer of right foot with fat layer exposed Status: Acute (3) Diabetes mellitus type 2, diet-controlled Status: Chronic (4) Peripheral neuropathy Status: Chronic (5) End stage renal disease on dialysis Status: Chronic (6) Neuropathic diabetic ulcer of foot Status: Chronic (7) Osteomyelitis of toe of right foot Status: Acute (8) Diabetic foot ulcer Status: Acute Additional Plans & Procedures PLAN: Patient is scheduled for amputation of the left hallux tomorrow morning. Discussed procedures with the patient. Discussed risks, complications and benefits. Patient wishes to proceed with planned surgery. I will follow the patient during the course of his admission. Preop orders and consent written Problem Qualifiers (1) Chronic renal failure: Qualified Code: N18.4 - Chronic renal failure, stage 4 (severe) (2) Peripheral neuropathy: Qualified Code: G63 - Polyneuropathy associated with underlying disease (3) Diabetic foot ulcer: Qualified Code: E11.621 - Diabetic ulcer of toe of right foot associated with type 2 diabetes mellitus, with necrosis of bone Tacos Cruz DPM Jul 20, 2016 13:27
[2016-07-20 16:00] VITALS: BP 119/56; PULSE 72; RESP 18; TEMP 98.1; O2SAT 98
[2016-07-20 17:27] VITALS: O2SAT 98
[2016-07-20] MEDS ORDERED: IOHEXOL 350 MG/ML 10 ML VIAL (for RAD DIAG) IV ONE (18:11)
--- NOTE | 2016-07-20 18:43 | HHI.PR ---
Subjective Remarks No major overnight events per The patient denies chest pain, shortness of breath. Pain is controlled. Diarrhea has subsided. Objective Vitals Vital Signs Date Time Temp Pulse Resp B/P Pulse Ox O2 Delivery O2 Flow Rate FiO2 07/20/16 17:27 98 21 07/20/16 16:00 98.1 72 18 119/56 98 07/20/16 05:50 98.7 71 16 97/55 97 07/20/16 02:56 99 07/19/16 23:37 98.1 85 16 136/56 99 07/19/16 20:00 77 07/19/16 19:30 97.7 71 16 106/81 97 I/O 07/19/16 07/19/16 07/19/16 07/20/16 07/20/16 07/20/16 07:00 15:00 23:00 07:00 15:00 23:00 Intake Total 0 ml 645 ml 360 ml 0 ml Output Total 3500 ml Balance 0 ml 645 ml 360 ml 0 ml -3500 ml Intake Oral 0 ml 600 ml 360 ml 0 ml IV Total 45 ml Hemodialysis 3500 ml # Voids 1 2 2 1 # Bowel Movements 1 1 2 0 Result Diagram: 07/20/16 0605 07/20/16 0605 Imaging Last Impressions Tumor Localization 07/18/16 0000 Signed Impressions: Service Date/Time: Monday, July 18, 2016 13:46 - CONCLUSION: There is osteomyelitis involving the right first interphalangeal joint. Octavia Hale MD Chest X-Ray 07/17/162008 Signed Impressions: Service Date/Time: Sunday, July 17, 2016 20:30 - CONCLUSION: No acute disease. Tacos Downs MD Objective Remarks GENERAL: This is a well-nourished, well-developed patient, in no apparent distress. SKIN: No rashes, ecchymoses or lesions. Cool and dry. HEAD: Atraumatic. Normocephalic. No temporal or scalp tenderness. EYES: No scleral icterus. No injection or drainage. ENT: Nose without bleeding, purulent drainage or septal hematoma. Airway patent. NECK: Trachea midline. No JVD CARDIOVASCULAR: Regular rate and rhythm without murmurs, gallops, or rubs. RESPIRATORY: Clear to auscultation. Breath sounds equal bilaterally. No wheezes , rales, or rhonchi. GASTROINTESTINAL: Abdomen soft, non-tender, nondistended. No guarding. MUSCULOSKELETAL: Extremities without clubbing, cyanosis, or edema. No calf tenderness. Right plantar foot with open wound. Right big toe with significant swelling, pain, surrounding erythema. NEUROLOGICAL: Awake and alert. Motor and sensory grossly within normal limits. Normal speech. Medications and IVs Current Medications Medications (Trade) Dose Ordered Sig/Denisa Route Start Time Stop Time Status Last Admin (NS Flush) 2 ml UNSCH PRN IV FLUSH 07/17/16 23:00 (NS Flush) 2 ml BID IV FLUSH 07/18/16 09:00 07/20/16 08:08 (Zofran Inj) 4 mg Q6H PRN IVP 07/17/16 23:00 Naloxone HCl 0.4 mg 0.4 mg UNSCH PRN IV 07/17/16 23:00 (Zosyn 2.25 Gm Premix) 50 ml @ 100 mls/hr Q8H IV 07/18/16 05:00 07/20/16 13:55 (Ecotrin Ec) 81 mg DAILY PO 07/18/16 09:00 07/20/16 08:08 (Lipitor) 40 mg HS PO 07/18/16 21:00 07/19/16 21:38 (Coreg) 3.125 mg HS PO 07/18/16 21:00 07/19/16 21:39 (Neurontin) 200 mg Q24H PO 07/18/16 09:00 07/20/16 08:08 Heparin Sodium (Porcine) 5000 units 5,000 units Q8HR SQ 07/18/16 14:00 07/20/16 13:55 (NS 1000 ml Inj) 1,000 ml @ 0 mls/hr Q0M PRN IV 07/18/16 11:31 Heparin Sodium (Porcine) 8000 units 8,000 units UNSCH PRN IVF 07/18/16 11:45 Sodium Chloride 1,000 ml @ 200 mls/hr Q5H PRN IV 07/18/16 11:31 (NS 1000 ml Inj) 1,000 ml @ 0 mls/hr Q0M PRN IV 07/18/16 11:31 (Mannitol Inj) 12.5 gm UNSCH PRN IV 07/18/16 11:45 (Albumin 25% Inj) 25 gm UNSCH PRN IV 07/18/16 11:45 (NS Flush) 5 ml UNSCH PRN IV FLUSH 07/18/16 11:45 (Heparin Inj) UNSCH PRN .XX 07/18/16 11:45 (Gentamicin (Dialysis) Inj) 20 mg UNSCH PRN IV 07/18/16 11:45 (Zofran Inj) 4 mg UNSCH PRN IV 07/18/16 11:45 (Tylenol) 650 mg UNSCH PRN PO 07/18/16 11:45 (Benadryl) 25 mg UNSCH PRN PO 07/18/16 11:45 (Nitrostat Sl) 0.4 mg UNSCH PRN SL 07/18/16 11:45 (Catapres) 0.1 mg UNSCH PRN PO 07/18/16 11:45 (Epogen Inj) 6,000 units UNSCH PRN IV 07/18/16 11:45 07/20/16 13:08 (Gelfoam 12 Mm/7 Mm Top) 1 foam UNSCH PRN TOP 07/18/16 11:45 A/P Problem List: (1) Osteomyelitis of toe of right foot ICD Code: M86.9 Status: Acute (2) Diabetic foot ulcer ICD Code: E11.621 Status: Acute (3) Peripheral neuropathy ICD Code: G62.9 Status: Chronic (4) End stage renal disease on dialysis ICD Code: N18.6 Status: Chronic (5) Diabetes mellitus type 2, diet-controlled ICD Code: E11.9 Status: Chronic (6) Hypertension ICD Code: I10 Status: Acute (7) Diarrhea ICD Code: R19.7 Status: Acute Assessment and Plan (1) Osteomyelitis of toe of right foot Confirmed by Ceterec white blood cell tagged study. Podiatry consulted, discussed the case with Dr. Crzu. The patient will be scheduled for surgery on 07/21/16. ABIs ordered by me yesterday. Results show decrease ABIs on the right lower extremity. Medical surgery has been consulted by podiatry. Vascular surgery recommends a CTA with runoff. Follow-up recommendations. Wound cultures is growing Proteus mirabilis. IV Zosyn discontinued on . And patient has been started on IV Rocephin. Continue (2) Diabetic foot ulcer Plan: As above. (3) Peripheral neuropathy Plan: seems stable. Continue gabapentin. (4) End stage renal disease on dialysis Plan: On hemodialysis schedule on Mondays and Saturday. Continue hemodialysis per nephrology recommendations. (5) Diabetes mellitus type 2, diet-controlled Plan: Patient's last hemoglobin A1c in October 2015 was 5.6. I will recheck hemoglobin A1c. Monitor Accu-Cheks and place on SSI with insulin NovoLog as needed. (6) Hypertension Plan: Blood pressure seems to be very stable. Continue Coreg. (7) Diarrhea Plan: Stool for C. difficile negative. Diarrhea resolved. I will start Lactobacillus acidophilus. Assessment and Plan DVT prophylaxis: Heparin subcutaneous. DVT prophylaxis: Heparin subcutaneous. Problem Qualifiers (1) Diabetic foot ulcer: Qualified Code: E11.621 - Diabetic ulcer of toe of right foot associated with type 2 diabetes mellitus, with necrosis of bone (2) Peripheral neuropathy: Qualified Code: G63 - Polyneuropathy associated with underlying disease (3) Hypertension: Qualified Code: I10 - Essential hypertension (4) Diarrhea: Qualified Code: R19.7 - Diarrhea, unspecified type Dru Dallas MD Jul 20, 2016 18:43
[2016-07-20 20:00] VITALS: BP 108/58; PULSE 74; PULSE 83; RESP 20; TEMP 98.8; O2SAT 97
[2016-07-20] MEDS: CARVEDILOL 3.125 MG TAB PO SCH (20:26)
[2016-07-20] MEDS: ATORVASTATIN 40 MG TAB PO SCH (20:26)
[2016-07-20 20:42] LABS: APTT (PATIENT) 28.2 SEC (24.3-30.1); INTERNATIONAL NORMALIZED RATIO 1.1 RATIO; PROTHROMBIN TIME - PATIENT 11.9 SEC (9.8-11.6)
[2016-07-21] VITALS: BP 99/58; PULSE 79; RESP 20; TEMP 98.7; O2SAT 95
[2016-07-21 04:00] VITALS: BP 110/65; PULSE 68; RESP 20; TEMP 99; O2SAT 93
[2016-07-21] MEDS: HEPARIN SODIUM - SQ 10,000 UNITS/ML VIAL SQ SCH ×3 (05:15→20:14)
[2016-07-21] MEDS: PIPERACIL-TAZO 2.25 GM PREMIX 50 ML IV SCH ×3 (05:15→20:14)
[2016-07-21 08:00] VITALS: BP 90/55; PULSE 73; RESP 12; TEMP 98.8; O2SAT 99
[2016-07-21 08:15] VITALS: PULSE 73
[2016-07-21] MEDS: SODIUM CHLORIDE 0.9% FLUSH 10 ML FLUSH IV FLUSH SCH ×3 (09:00→20:14)
--- NOTE | 2016-07-21 10:42 | HHI.PR ---
Addendum to Inpatient Note Addendum Reason: Corrected Documentation Additional Information Should be noted that all documentation pertaining to the infected toe is the right hallux. Tacos Cruz DPM Jul 21, 2016 10:42
[2016-07-21] MEDS ORDERED: fentaNYL CITRATE 250 MCG/5 ML AMP ONE (10:58)
[2016-07-21] MEDS ORDERED: BUPIVACAINE HCL PF 0.5% 30 ML VIAL ONE (11:04)
--- NOTE | 2016-07-21 11:51 | PD.OP ---
Operative Report Date of Surgery: Jul 21, 2016 Preoperative Diagnosis: (1) Osteomyelitis of toe of right foot (2) Ulcer of right foot with fat layer exposed Postoperative Diagnosis: (1) Osteomyelitis of toe of right foot (2) Ulcer of right foot with fat layer exposed Procedure: Amputation of the right hallux Anesthesia: General inhalation Surgeon: Tacos Cruz DPM Scrap Piler(s): None Operation and Findings: Patient was brought to the OR and placed on the operating table in the supine position. A pneumatic ankle cuff was placed around the patient's right ankle after padding. Patient was given general relation in the right foot was prepped and draped in the usual sterile manner. After the appropriate timeout was performed attention was directed to the right hallux which had numerous ulcerations and purulence as well as an ulceration of the first metatarsal head. At this time to semi-elliptical incisions were made medial and lateral to the hallux and dorsal and plantar and the resulting hallux was disarticulated at the MPJ. The head of the first metatarsal was freed up from the wound in osteotomy was performed to remove the head of the first metatarsal. The remaining wound was cleaned up of any necrotic tissue. The wound was flushed with copious amounts of sterile saline. A pneumatic cuff which was inflated just before the surgery to 250 mmHg was deflated at the 8 minute morelia. Vascular status returned to the remaining toes of the right foot. Any superficial bleeding vessels were identified and ligated or bovied. The wound was anesthetized with 10 cc of 0.5% Marcaine plain. The wound was packed with Maxorb extra AG. 4 x 4's and ABDs pad were applied along with a Brandon. Vitaliy bandage was applied for compression. The right hallux and first met head were sent to pathology. Sponge and instrument count were noted to be correct. Estimated blood loss was less than 10 cc. Patient tolerated the procedures and anesthesia well and left the OR to PACU in apparent satisfactory condition with all vital signs stable. Tacos Cruz DPM Jul 21, 2016 11:51
[2016-07-21] MEDS ORDERED: HYDROmorphone HCL PF 1 MG/ML VIAL IV PRN (12:00)
[2016-07-21] MEDS ORDERED: SODIUM CHLORIDE 0.9% FLUSH 10 ML FLUSH IV FLUSH PRN (12:00)
[2016-07-21] MEDS ORDERED: NALOXONE HCL 0.4 MG/ML AMP IV PRN (12:00)
[2016-07-21] MEDS ORDERED: Post-op Orders (for Pharmacy) MISC XX ONE (12:00)
[2016-07-21] MEDS ORDERED: HYDROmorphone HCL 2 MG TAB PO PRN (12:00)
[2016-07-21] MEDS ORDERED: *RESP: ALBUTEROL 2.5 MG/3 ML NEB (PRN) PERIprocedural Use ONLY NEB ONE (12:08)
--- NOTE | 2016-07-21 12:30 | RADRPT ---
EXAM DATE/TIME: 07/21/2016 12:06 [facility] COMPARISON: No previous studies available for comparison. INDICATIONS : Post surgical amputation. MEDICAL HISTORY : Diabetes mellitus type II. SURGICAL HISTORY : None. ENCOUNTER: Initial ACUITY: 1 day PAIN SCORE: Non-responsive. LOCATION: Right foot. FINDINGS: The patient is status post amputation of the first digit distal to the mid shaft of the first metatar mike. Associated overlying soft tissue defect and subcutaneous emphysema with bandage material present . CONCLUSION: Postsurgical changes are noted. There is soft tissue emphysema present and soft tissue ulceration at the level of the first digit stump. This is presumably related to recent surgery. Harvinder Cisse MD on July 21, 2016 at 12:27 Board Certified Radiologist. This report was verified electronically.
[2016-07-21] MEDS ORDERED: DO NOT ADM ANY ANTICOAGULANT DRUGS PRN (12:45)
[2016-07-21] MEDS: ACETAMINOPHEN 1000 MG/100 ML VIAL IV SCH ×3 (12:52→20:13)
[2016-07-21] MEDS: GABAPENTIN 100 MG CAP PO SCH (12:57)
[2016-07-21] MEDS: ASPIRIN EC 81 MG TABEC PO SCH ×2 (12:57→13:18)
[2016-07-21] MEDS ORDERED: ePHEDrine/NS 25 MG/5 ML SYR IV ONE (13:23)
[2016-07-21] MEDS ORDERED: PROPOFOL 200 MG/20 ML AMP IV ONE (13:23)
[2016-07-21] MEDS ORDERED: PHENYLEPH/NS 1000 MCG/10 ML SYR IV ONE (13:24)
[2016-07-21] MEDS ORDERED: ONDANSETRON HCL 4 MG/2 ML VIAL IV PUSH ONE (13:24)
[2016-07-21 16:00] VITALS: BP 88/53; PULSE 71; RESP 16; TEMP 97.7; O2SAT 98
--- NOTE | 2016-07-21 16:55 | HHI.PR ---
Subjective Remarks deferred entry- patient seen earlier at 10 am patient has no major complaints denies cp/sob denies fevers/chills Bp noted to be low in the 90's Objective Vitals Vital Signs Date Time Temp Pulse Resp B/P Pulse Ox O2 Delivery O2 Flow Rate FiO2 07/21/16 12:30 98.4 80 16 113/57 100 Nasal Cannula 2 07/21/16 12:15 80 16 88/55 100 Nasal Cannula 2 07/21/16 12:04 98.0 84 21 95/60 100 Nasal Cannula 2 07/21/16 08:00 98.8 73 12 90/55 99 07/21/16 04:00 99.0 68 20 110/65 93 07/21/16 00:00 98.7 79 20 99/58 95 07/20/16 20:00 74 07/20/16 20:00 98.8 83 20 108/58 97 07/20/16 17:27 98 21 I/O 07/20/16 07/20/16 07/20/16 07/21/16 07/21/16 07/21/16 07:00 15:00 23:00 07:00 15:00 23:00 Intake Total 0 ml 240 ml 200 ml Output Total 3500 ml 15 ml Balance 0 ml -3500 ml 240 ml 185 ml Intake Oral 0 ml 240 ml 0 ml IV Total 0 ml Other 200 ml Hemodialysis 3500 ml Estimated Blood Loss 15 ml # Voids 1 3 1 0 # Bowel Movements 0 1 1 Result Diagram: 07/20/16 0605 07/20/16 0605 Imaging Last Impressions Foot X-Ray 07/21/16 0000 Signed Impressions: Service Date/Time: Thursday, July 21, 2016 12:06 - CONCLUSION: Postsurgical changes are noted. There is soft tissue emphysema present and soft tissue ulceration at the level of the first digit stump. This is presumably related to recent surgery. Harvinder Cisse MD Tumor Localization 07/18/16 0000 Signed Impressions: Service Date/Time: Monday, July 18, 2016 13:46 - CONCLUSION: There is osteomyelitis involving the right first interphalangeal joint. Octavia Hale MD Chest X-Ray 07/17/162008 Signed Impressions: Service Date/Time: Sunday, July 17, 2016 20:30 - CONCLUSION: No acute disease. Tacos Downs MD Objective Remarks GENERAL: This is a well-nourished, well-developed patient, in no apparent distress. SKIN: No rashes, ecchymoses or lesions. Cool and dry. HEAD: Atraumatic. Normocephalic. No temporal or scalp tenderness. EYES: No scleral icterus. No injection or drainage. ENT: Nose without bleeding, purulent drainage or septal hematoma. Airway patent. NECK: Trachea midline. No JVD CARDIOVASCULAR: Regular rate and rhythm without murmurs, gallops, or rubs. RESPIRATORY: Clear to auscultation. Breath sounds equal bilaterally. No wheezes , rales, or rhonchi. GASTROINTESTINAL: Abdomen soft, non-tender, nondistended. No guarding. MUSCULOSKELETAL: Extremities without clubbing, cyanosis, or edema. No calf tenderness. Right plantar foot with open wound. Right big toe with significant swelling, pain, surrounding erythema. NEUROLOGICAL: Awake and alert. Motor and sensory grossly within normal limits. Normal speech. Medications and IVs Current Medications Medications (Trade) Dose Ordered Sig/Denisa Route Start Time Stop Time Status Last Admin (NS Flush) 2 ml UNSCH PRN IV FLUSH 07/17/16 23:00 (NS Flush) 2 ml BID IV FLUSH 07/18/16 09:00 07/21/16 09:00 Ondansetron HCl 4 mg 4 mg Q6H PRN IVP 07/17/16 23:00 (Zosyn 2.25 Gm Premix) 50 ml @ 100 mls/hr Q8H IV 07/18/16 05:00 07/21/16 12:53 (Ecotrin Ec) 81 mg DAILY PO 07/18/16 09:00 07/20/16 08:08 (Lipitor) 40 mg HS PO 07/18/16 21:00 07/20/16 20:26 (Coreg) 3.125 mg HS PO 07/18/16 21:00 07/20/16 20:26 (Neurontin) 200 mg Q24H PO 07/18/16 09:00 07/21/16 12:57 Heparin Sodium (Porcine) 5000 units 5,000 units Q8HR SQ 07/18/16 14:00 07/20/16 20:26 (NS 1000 ml Inj) 1,000 ml @ 0 mls/hr Q0M PRN IV 07/18/16 11:31 Heparin Sodium (Porcine) 8000 units 8,000 units UNSCH PRN IVF 07/18/16 11:45 Sodium Chloride 1,000 ml @ 200 mls/hr Q5H PRN IV 07/18/16 11:31 (NS 1000 ml Inj) 1,000 ml @ 0 mls/hr Q0M PRN IV 07/18/16 11:31 (Mannitol Inj) 12.5 gm UNSCH PRN IV 07/18/16 11:45 (Albumin 25% Inj) 25 gm UNSCH PRN IV 07/18/16 11:45 (NS Flush) 5 ml UNSCH PRN IV FLUSH 07/18/16 11:45 (Heparin Inj) UNSCH PRN .XX 07/18/16 11:45 (Gentamicin (Dialysis) Inj) 20 mg UNSCH PRN IV 07/18/16 11:45 (Zofran Inj) 4 mg UNSCH PRN IV 07/18/16 11:45 (Tylenol) 650 mg UNSCH PRN PO 07/18/16 11:45 (Benadryl) 25 mg UNSCH PRN PO 07/18/16 11:45 (Nitrostat Sl) 0.4 mg UNSCH PRN SL 07/18/16 11:45 (Catapres) 0.1 mg UNSCH PRN PO 07/18/16 11:45 (Epogen Inj) 6,000 units UNSCH PRN IV 07/18/16 11:45 07/20/16 13:08 (Gelfoam 12 Mm/7 Mm Top) 1 foam UNSCH PRN TOP 07/18/16 11:45 (NS Flush) 2 ml UNSCH PRN IV FLUSH 07/21/16 12:00 (NS Flush) 2 ml BID IV FLUSH 07/21/16 21:00 (Ofirmev Inj) 1,000 mg Q6H IV 07/21/16 13:00 07/22/16 07:01 07/21/16 12:52 (Dilaudid Pf Inj) 1 mg Q3H PRN IV 07/21/16 12:00 (Dilaudid) 1 mg Q4H PRN PO 07/21/16 12:00 (Dilaudid) 2 mg Q4H PRN PO 07/21/16 12:00 (Narcan Inj) 0.4 mg UNSCH PRN IV 07/21/16 12:00 Miscellaneous Information ALL NURSING DEPARTME... UNSCH PRN .XX 07/21/16 12:45 07/22/16 12:44 Urinary Catheter: No Vascular Central Line Catheter: No A/P Problem List: (1) Osteomyelitis of toe of right foot ICD Code: M86.9 Status: Acute (2) Diabetic foot ulcer ICD Code: E11.621 Status: Acute (3) Peripheral neuropathy ICD Code: G62.9 Status: Chronic (4) End stage renal disease on dialysis ICD Code: N18.6 Status: Chronic (5) Diabetes mellitus type 2, diet-controlled ICD Code: E11.9 Status: Chronic (6) Hypertension ICD Code: I10 Status: Acute (7) Diarrhea ICD Code: R19.7 Status: Acute Assessment and Plan (1) Osteomyelitis of toe of right foot Confirmed by [facility] white blood cell tagged study. Podiatry consulted, discussed the case with Dr. Cruz. The patient will be scheduled for surgery on 07/21/16. ABIs ordered by me yesterday. Results show decrease ABIs on the right lower extremity. Medical surgery has been consulted by podiatry. Vascular surgery recommends a CTA with runoff. Follow-up recommendations. Wound cultures grew Proteus mirabilis. IV Zosyn discontinued on 07/19/16 and Rocephin Iv started. (2) Diabetic foot ulcer Plan: As above. (3) Peripheral neuropathy Plan: seems stable. Continue gabapentin. (4) End stage renal disease on dialysis Plan: On hemodialysis schedule on Mondays and Saturday. Continue hemodialysis per nephrology recommendations. (5) Diabetes mellitus type 2, diet-controlled Plan: Patient's last hemoglobin A1c in October 2015 was 5.6. I will recheck hemoglobin A1c. Monitor Accu-Cheks and place on SSI with insulin NovoLog as needed. (6) Hypertension Plan: Blood presure very stable on previous days. 07/21 BP low today - hold antihypertensive medications and continue to monitor vital signs. (7) Diarrhea Plan: Stool for C. difficile negative. Diarrhea resolved. Continue lactobacillus acidophilus. Assessment and Plan DVT prophylaxis: Heparin subcutaneous. DVT prophylaxis: Heparin subcutaneous. Problem Qualifiers (1) Diabetic foot ulcer: Qualified Code: E11.621 - Diabetic ulcer of toe of right foot associated with type 2 diabetes mellitus, with necrosis of bone (2) Peripheral neuropathy: Qualified Code: G63 - Polyneuropathy associated with underlying disease (3) Hypertension: Qualified Code: I10 - Essential hypertension (4) Diarrhea: Qualified Code: R19.7 - Diarrhea, unspecified type Dru Dallas MD Jul 21, 2016 16:55
--- NOTE | 2016-07-21 18:27 | PD.VS.PN ---
Subjective Subjective/Hospital Course Patient not in room at about 1215 pm. Objective Vitals/I&O Date Time Temp Pulse Resp B/P Pulse Ox O2 Delivery O2 Flow Rate FiO2 07/21/16 16:00 97.7 71 16 88/53 98 07/21/16 12:30 98.4 80 16 113/57 100 Nasal Cannula 2 07/21/16 12:15 80 16 88/55 100 Nasal Cannula 2 07/21/16 12:04 98.0 84 21 95/60 100 Nasal Cannula 2 07/21/16 08:00 98.8 73 12 90/55 99 07/21/16 04:00 99.0 68 20 110/65 93 07/21/16 00:00 98.7 79 20 99/58 95 07/20/16 20:00 74 07/20/16 20:00 98.8 83 20 108/58 97 07/21/16 07/21/16 07/21/16 07:00 15:00 23:00 Intake Total 440 ml Output Total 15 ml Balance 425 ml Laboratory Laboratory Tests Test 07/20/16 20:05 Prothrombin Time 11.9 Prothromb Time International 1.1 Ratio Activated Partial 28.2 Thromboplast Time Date/Time Procedure Status Source Growth 07/17/16 21:30 Gram Stain - Final Complete Wound Foot 07/17/16 21:30 Wound Culture - Final Complete Proteus Mirabilis 07/17/16 20:55 Aerobic Blood Culture - Preliminary Resulted Blood Peripheral NO GROWTH IN 4 DAYS 07/17/16 20:55 Anaerobic Blood Culture - Preliminary Resulted Blood Peripheral NO GROWTH IN 4 DAYS Imaging Last 48 hours Impressions Foot X-Ray 07/21/16 0000 Signed Impressions: Service Date/Time: Thursday, July 21, 2016 12:06 - CONCLUSION: Postsurgical changes are noted. There is soft tissue emphysema present and soft tissue ulceration at the level of the first digit stump. This is presumably related to recent surgery. Harvinder Cisse MD Assessment and Plan Assessment: (1) MRSA infection Status: Acute (2) Diabetic foot ulcer Status: Acute Plan 56 year old male with a right first toe diabetic toe ulcer. Culture of drainage grew MRSA. Right lower extremity pulses palpable and appears to have no flow limiting lesions on CTA of aorta with runoff. Will discuss finding with patient on Saturday. In the interim, wound care to great toe per podiatry. Blood glucose control and antibiotics. Matty Alonso DO, FACS Wireless Field Technician of Vascular Surgery /[place] Problem Qualifiers (1) Diabetic foot ulcer: Qualified Code: E11.621 - Diabetic ulcer of toe of right foot associated with type 2 diabetes mellitus, with necrosis of bone Matty Alonso DO Jul 21, 2016 18:27
[2016-07-21 20:00] VITALS: BP 113/58; PULSE 67; PULSE 71; RESP 19; TEMP 97.9; O2SAT 96
[2016-07-21] MEDS: CARVEDILOL 3.125 MG TAB PO SCH (20:14)
[2016-07-21] MEDS: ATORVASTATIN 40 MG TAB PO SCH (20:14)
[2016-07-21] MEDS: HYDROmorphone HCL 2 MG TAB PO PRN (21:40)
[2016-07-22] VITALS (9 sets, daily range): BP systolic 89–128; BP diastolic 51–78; PULSE 64–80; RESP 16–18; TEMP 97.7–98.4; O2SAT 94–98
[2016-07-22] MEDS: HYDROmorphone HCL 2 MG TAB PO PRN ×4 (02:12→19:44)
[2016-07-22] MEDS: HEPARIN SODIUM - SQ 10,000 UNITS/ML VIAL SQ SCH ×2 (06:04→14:00)
[2016-07-22] MEDS: PIPERACIL-TAZO 2.25 GM PREMIX 50 ML IV SCH ×2 (06:04→14:02)
[2016-07-22] MEDS: ACETAMINOPHEN 1000 MG/100 ML VIAL IV SCH (06:58)
[2016-07-22] MEDS: GABAPENTIN 100 MG CAP PO SCH (07:46)
[2016-07-22] MEDS: SODIUM CHLORIDE 0.9% FLUSH 10 ML FLUSH IV FLUSH SCH ×4 (07:47→19:31)
--- NOTE | 2016-07-22 08:59 | PD.VS.PN ---
Subjective Subjective/Hospital Course Patient had bleeding episode last evening from ampuation site. Reinforced with dressing.. Objective Vitals/I&O Date Time Temp Pulse Resp B/P Pulse Ox O2 Delivery O2 Flow Rate FiO2 07/22/16 04:00 97.9 70 18 128/59 98 07/22/16 00:00 98.4 79 18 112/57 94 07/21/16 20:00 Room Air 07/21/16 20:00 71 07/21/16 20:00 97.9 67 19 113/58 96 07/21/16 16:00 97.7 71 16 88/53 98 07/21/16 12:30 98.4 80 16 113/57 100 Nasal Cannula 2 07/21/16 12:15 80 16 88/55 100 Nasal Cannula 2 07/21/16 12:04 98.0 84 21 95/60 100 Nasal Cannula 2 07/22/16 07/22/16 07/22/16 07:00 15:00 23:00 Intake Total 120 ml Output Total 200 ml Balance -80 ml Physical Exam bulky surgical dressing in place. Laboratory Date/Time Procedure Status Source Growth 07/17/16 21:30 Gram Stain - Final Complete Wound Foot 07/17/16 21:30 Wound Culture - Final Complete Proteus Mirabilis 07/17/16 20:55 Aerobic Blood Culture - Preliminary Resulted Blood Peripheral NO GROWTH IN 4 DAYS 07/17/16 20:55 Anaerobic Blood Culture - Preliminary Resulted Blood Peripheral NO GROWTH IN 4 DAYS Imaging Last 48 hours Impressions Foot X-Ray 07/21/16 0000 Signed Impressions: Service Date/Time: Thursday, July 21, 2016 12:06 - CONCLUSION: Postsurgical changes are noted. There is soft tissue emphysema present and soft tissue ulceration at the level of the first digit stump. This is presumably related to recent surgery. Harvinder Cisse MD Assessment and Plan Assessment: (1) MRSA infection Status: Acute (2) Diabetic foot ulcer Status: Acute Plan 56 year old male with a right first toe diabetic toe ulcer. Discussed findings on CTA that correlate with examination. Patient has appropriate blood supply to right lower extremity. Will sign off at this time. Thanks for consultation. Matty Alonso DO, FACS Engineer Specialist of Vascular Surgery /[place] Problem Qualifiers (1) Diabetic foot ulcer: Qualified Code: E11.621 - Diabetic ulcer of toe of right foot associated with type 2 diabetes mellitus, with necrosis of bone Matty Alonso DO Jul 22, 2016 08:59
[2016-07-22 10:40] LABS: AUTOMATED NEUTROPHIL # 5.2 TH/MM3 (1.8-7.7); BASOPHIL % 0.6 % (0.0-2.0); EOSINOPHIL # 0.2 TH/MM3 (0-0.4); EOSINOPHIL % 2.4 % (0.0-4.0); HEMATOCRIT 33.6 % (39.0-51.0); HEMO FLAGS DIFF FINAL; LYMPH % 20.2 % (9.0-44.0); LYMPHOCYTE # 1.6 TH/MM3 (1.0-4.8); MEAN CELL VOLUME 94.9 FL (80.0-100.0); MEAN CORPUSCULAR HEMOGLOBIN 30.3 PG (27.0-34.0); MEAN CORPUSCULAR HGB CONC 31.9 % (32.0-36.0); MONO % 10.6 % (0.0-8.0); NEUT % 66.2 % (16.0-70.0); PLATELET COUNT 265 TH/MM3 (150-450); RED BLOOD COUNT 3.54 MIL/MM3 (4.50-5.90); RED CELL DISTRIBUTION WIDTH 13.8 % (11.6-17.2); WHITE BLOOD COUNT 7.8 TH/MM3 (4.0-11.0)
[2016-07-22 11:19] LABS: ALKALINE PHOSPHATASE 58 U/L (45-117); ALT (GPT) 18 U/L (12-78); ANION GAP 14 MEQ/L (5-15); AST (GOT) 17 U/L (15-37); BICARBONATE 25.7 MEQ/L (21.0-32.0); BLOOD UREA NITROGEN 63 MG/DL (7-18); CHLORIDE 93 MEQ/L (98-107); GLOMERULAR FILTRATION RATE 4 ML/MIN (>89); POTASSIUM 4.5 MEQ/L (3.5-5.1); SODIUM (NA) 133 MEQ/L (136-145); TOTAL BILIRUBIN ADULT 0.4 MG/DL (0.2-1.0)
[2016-07-22 12:30] LABS: HEMOGLOBIN A1b 1.7 %; HEMOGLOBIN LA1C 2.8 %
[2016-07-22 12:31] LABS: HEMOGLOBIN Ao 82.8 %; HEMOGLOBIN P3 6.2 %
--- NOTE | 2016-07-22 12:52 | PD.WOU.PN ---
Patient Intake Chief Complaint Osteomyelitis of the right hallux Consult Requested by Reason for Consult Treatment of osteomyelitis and infection right hallux Primary Care Physician Non-Staff History of Present Illness If the 6 year-old male on hemodialysis with osteomyelitis and infection of the right hallux. He is one day status post open amputation of the right hallux. Patient seen by vascular surgery who states he should have adequate flow for healing. Patient get out of bed yesterday and walked a chair and bathroom when he was supposed to be on complete bed rest and have bleeding through his bandage. Bandage was reinforced. Patient denies much pain or discomfort Coded Allergies: Metoprolol (Verified Allergy, Severe, Blurred Vision, lightheadedness, nausea, 07/17/16) Norvasc (Verified Allergy, Severe, Blurred Vision, lightheaded, nausea, ) *MDRO Multi-Drug Resistant Organism (Verified Adverse Reaction, Unknown, ) MRSA (wounds) - 2005; (foot) - 12/22/15, 01/12/16, 05/01/16, 07/03/16 Preferred Language to Discuss: Lithuanian Barriers to Learning: None Teaching Method: Discussion Vital Signs Date Time Temp Pulse Resp B/P Pulse Ox O2 Delivery O2 Flow Rate FiO2 07/22/16 08:10 Room Air 07/22/16 08:10 64 07/22/16 08:00 98.1 68 16 103/60 95 07/22/16 08:00 95 21 07/22/16 04:00 97.9 70 18 128/59 98 07/22/16 00:00 98.4 79 18 112/57 94 07/21/16 20:00 Room Air 07/21/16 20:00 71 07/21/16 20:00 97.9 67 19 113/58 96 07/21/16 16:00 97.7 71 16 88/53 98 Pain scale used: 0-10 numeric scale Pain score: 2 Medications Current Medications Vancomycin HCl 1000 mg/Sodium Chloride 250 ml @ 250 mls/hr ONCE ONCE IV Last administered on 07/17/16t 22:14; Start 07/17/16 at 20:15; Stop 07/17/16 at 21:14 ; Status DC Piperacillin Sod/ Tazobactam Sod (Zosyn 3.375 Gm Premix) 50 ml @ 100 mls/hr ONCE ONCE IV Last administered on 07/17/16 22:14; Start 07/17/16 at 20:15; Stop 07/17/16 at 20:44; Status DC Ondansetron HCl (Zofran Inj) 4 mg ONCE ONCE IV Last administered on 07/17/16 22:14; Start 07/17/16 at 22:15; Stop 07/17/16 at 22:16; Status DC Ondansetron HCl (Zofran Inj) 4 mg STK-MED ONCE .ROUTE ; Start 07/17/16 at 22:12 ; Stop 07/17/16 at 22:13; Status DC Sodium Chloride (NS Flush) 2 ml UNSCH PRN IV FLUSH FLUSH AFTER USING IV ACCESS ; Start 07/17/16 at 23:00 Sodium Chloride (NS Flush) 2 ml BID IV FLUSH Last administered on 07/22/16 07: 47; Start 07/18/16 at 09:00 Ondansetron HCl (Zofran Inj) 4 mg Q6H PRN IVP NAUSEA OR VOMITING; Start at 23:00 Naloxone HCl 0.4 mg 0.4 mg UNSCH PRN IV SEE LABEL COMMENTS; Start 07/17/16 at 23:00; Stop 07/21/16 at 12:01; Status DC Piperacillin Sod/ Tazobactam Sod 100 ml @ 200 mls/hr Q6H IV ; Start 07/18/16 at 05:00; Status UNV Piperacillin Sod/ Tazobactam Sod (Zosyn 2.25 Gm Premix) 50 ml @ 100 mls/hr Q8H IV Last administered on 07/22/16 06:04; Start 07/18/16 at 05:00 Aspirin (Ecotrin Ec) 81 mg DAILY PO Last administered on 07/20/16 08:08; Start 07/18/16 at 09:00 Atorvastatin Calcium (Lipitor) 40 mg HS PO Last administered on 07/21/16 20:14 ; Start 07/18/16 at 21:00 Carvedilol (Coreg) 3.125 mg HS PO Last administered on 07/21/16 20:14; Start 07/18/16 at 21:00 Gabapentin (Neurontin) 200 mg Q24H PO Last administered on 07/22/16 07:46; Start 07/18/16 at 09:00 Heparin Sodium (Porcine) 5000 units 5,000 units Q8HR SQ Last administered on t 06:04; Start 07/18/16 at 14:00 Sodium Chloride (NS 1000 ml Inj) 1,000 ml @ 0 mls/hr Q0M PRN IV For Prime & Rinse Back; Start 07/18/16 at 11:31 Heparin Sodium (Porcine) 8000 units 8,000 units UNSCH PRN IVF WITH DIALYSIS; Start 07/18/16 at 11:45 Sodium Chloride 1,000 ml @ 200 mls/hr Q5H PRN IV WITH DIALYSIS; Start 07/18/16 at 11:31 Sodium Chloride (NS 1000 ml Inj) 1,000 ml @ 0 mls/hr Q0M PRN IV WITH DIALYSIS; Start 07/18/16 at 11:31 Mannitol (Mannitol Inj) 12.5 gm UNSCH PRN IV WITH DIALYSIS; Start 07/18/16 at 11:45 Albumin Human (Albumin 25% Inj) 25 gm UNSCH PRN IV WITH DIALYSIS; Start at 11:45 Sodium Chloride (NS Flush) 5 ml UNSCH PRN IV FLUSH WITH DIALYSIS; Start at 11:45 Heparin Sodium (Porcine) (Heparin Inj) UNSCH PRN .XX WITH DIALYSIS; Start at 11:45 Gentamicin Sulfate (Gentamicin (Dialysis) Inj) 20 mg UNSCH PRN IV WITH DIALYSIS ; Start 07/18/16 at 11:45 Ondansetron HCl (Zofran Inj) 4 mg UNSCH PRN IV WITH DIALYSIS; Start 07/18/16 at 11:45 Acetaminophen (Tylenol) 650 mg UNSCH PRN PO for headach, pain 1-10,T> 101F; Start 07/18/16 at 11:45 Diphenhydramine HCl (Benadryl) 25 mg UNSCH PRN PO for hives/itching/anaphylaxis ; Start 07/18/16 at 11:45 Nitroglycerin (Nitrostat Sl) 0.4 mg UNSCH PRN SL CHEST PAIN; Start 07/18/16 at 11:45 Clonidine (Catapres) 0.1 mg UNSCH PRN PO for BP > 180/100 X 2 readings; Start 07/18/16 at 11:45 Epoetin Chris (Epogen Inj) 6,000 units UNSCH PRN IV WITH DIALYSIS Last administered on 07/20/16 13:08; Start 07/18/16 at 11:45 Gelatin (Gelfoam 12 Mm/7 Mm Top) 1 foam UNSCH PRN TOP SEE LABEL COMMENTS; Start 07/18/16 at 11:45 Iohexol (Omnipaque 350 Inj) 75 ml STK-MED ONCE IV Last administered on 18:11; Start 07/20/16 at 18:11; Stop 07/20/16 at 18:12; Status DC Fentanyl Citrate (fentaNYL INJ) 100 mcg STK-MED ONCE .ROUTE ; Start 07/21/16 at 10:58; Stop 07/21/16 at 10:59; Status DC Fentanyl Citrate (fentaNYL INJ) 250 mcg STK-MED ONCE .ROUTE ; Start 07/21/16 at 10:58; Stop 07/21/16 at 10:59; Status DC Bupivacaine HCl (Marcaine Pf 0.5% Inj) 30 ml STK-MED ONCE .ROUTE Last administered on 07/21/16 11:38; Start 07/21/16 at 11:04; Stop 07/21/16 at 11:05 ; Status DC Sodium Chloride (NS Flush) 2 ml UNSCH PRN IV FLUSH FLUSH AFTER USING IV ACCESS ; Start 07/21/16 at 12:00 Sodium Chloride (NS Flush) 2 ml BID IV FLUSH Last administered on 07/22/16 07: 47; Start 07/21/16 at 21:00 Miscellaneous Information (Post-op Orders (for Pharmacy)) STAT ONCE XX Last administered on 07/21/16 12:00; Start 07/21/16 at 12:00; Stop 07/21/16 at 12:06 ; Status DC Acetaminophen (Ofirmev Inj) 1,000 mg Q6H IV Last administered on 07/22/16 06: 58; Start 07/21/16 at 13:00; Stop 07/22/16 at 07:01; Status DC Hydromorphone HCl (Dilaudid Pf Inj) 1 mg Q3H PRN IV BREAKTHROUGH PAIN; Start at 12:00 Hydromorphone HCl (Dilaudid) 1 mg Q4H PRN PO PAIN SCALE 3 TO 5; Start 07/21/16 at 12:00 Hydromorphone HCl (Dilaudid) 2 mg Q4H PRN PO PAIN SCALE 6 TO 10 Last administered on 07/22/16 06:05; Start 07/21/16 at 12:00 Naloxone HCl (Narcan Inj) 0.4 mg UNSCH PRN IV SEE LABEL COMMENTS; Start at 12:00 Albuterol Sulfate (*ALBUTEROL NEB PERIprocedure ONLY) 2.5 mg STK-MED ONCE NEB Last administered on 07/21/16 12:08; Start 07/21/16 at 12:08; Stop 07/21/16 at 12:09; Status DC Miscellaneous Information ALL NURSING DEPARTME... UNSCH PRN .XX SEE LABEL COMMENTS; Start 07/21/16 at 12:45; Stop 07/22/16 at 12:44; Status DC Past, Family & Social History Past Medical History HEENT: REPORTS HX OF: Cataracts Endocrine: REPORTS HX OF: Diabetes mellitus (diabetic control) Cardiovascular: REPORTS HX OF: Hyperlipidemia, Hypertension Genitourinary: REPORTS HX OF: Hemodialysis, Kidney failure (stage 5) Infectious disease: REPORTS HX OF: Chickenpox (as a child), Measles (as a child ), Mumps (as a child) Neurologic: REPORTS HX OF: Peripheral neuropathy Disabilities: REPORTS HX OF: Vision deficit (reading glasses) Past Surgical History HEENT: REPORTS HX OF: Cataract extraction Gastrointestinal: REPORTS HX OF: Colectomy, total Genitourinary: REPORTS HX OF: Other surgery Family Medical History Patient History: Unknown G8 FATHER G8 MOTHER Substance Use Substance use: Denies use Review of Systems Notes Any changes in his 14 point review of systems exam since yesterday with amputation of the right hallux Wound Assessment Vascular Assessment R Dorsails Pedis: Palpable L Dorsails Pedis: Palpable R Posterior Tibial: Palpable L Posterior Tibial: Palpable Sensation of Left Extremity: Diminished Sensation of Right Extremity: Diminished Wound Information - Wound One Converted the surgical wound Wound Location: Right plantar foot of first metatarsal Wound Two Converted this surgical amputation site Wound Location: Right lateral Great toe Wound Three Converted the surgical amputation site Wound Location: Right medial great toe Compliance (if applicable) Compliance: No: Off Loading / Non-Weight Lab and Radiology Results Laboratory Remarks Laboratory Tests Test 07/22/16 07:24 White Blood Count 7.8 TH/MM3 Red Blood Count 3.54 MIL/MM3 Hemoglobin 10.7 GM/DL Hematocrit 33.6 % Mean Corpuscular Volume 94.9 FL Mean Corpuscular Hemoglobin 30.3 PG Mean Corpuscular Hemoglobin 31.9 % Concent Red Cell Distribution Width 13.8 % Platelet Count 265 TH/MM3 Mean Platelet Volume 8.6 FL Neutrophils (%) (Auto) 66.2 % Lymphocytes (%) (Auto) 20.2 % Monocytes (%) (Auto) 10.6 % Eosinophils (%) (Auto) 2.4 % Basophils (%) (Auto) 0.6 % Neutrophils # (Auto) 5.2 TH/MM3 Lymphocytes # (Auto) 1.6 TH/MM3 Monocytes # (Auto) 0.8 TH/MM3 Eosinophils # (Auto) 0.2 TH/MM3 Basophils # (Auto) 0.0 TH/MM3 CBC Comment DIFF FINAL Differential Comment Laboratory Tests Test 07/21/16 07/22/16 20:03 07:24 Hemoglobin A1c 6.0 % Sodium Level 133 MEQ/L Potassium Level 4.5 MEQ/L Chloride Level 93 MEQ/L Carbon Dioxide Level 25.7 MEQ/L Anion Gap 14 MEQ/L Blood Urea Nitrogen 63 MG/DL Creatinine 15.11 MG/DL Estimat Glomerular Filtration 4 ML/MIN Rate Random Glucose 71 MG/DL Calcium Level 9.2 MG/DL Total Bilirubin 0.4 MG/DL Aspartate Amino Transf 17 U/L (AST/SGOT) Alanine Aminotransferase 18 U/L (ALT/SGPT) Alkaline Phosphatase 58 U/L Total Protein 8.3 GM/DL Albumin 2.9 GM/DL Radiology Last Impressions Foot X-Ray 07/21/16 0000 Signed Impressions: Service Date/Time: Thursday, July 21, 2016 12:06 - CONCLUSION: Postsurgical changes are noted. There is soft tissue emphysema present and soft tissue ulceration at the level of the first digit stump. This is presumably related to recent surgery. Harvinder Cisse MD Tumor Localization 07/18/16 0000 Signed Impressions: Service Date/Time: Monday, July 18, 2016 13:46 - CONCLUSION: There is osteomyelitis involving the right first interphalangeal joint. Octavia Hale MD Chest X-Ray 07/17/162008 Signed Impressions: Service Date/Time: Sunday, July 17, 2016 20:30 - CONCLUSION: No acute disease. Tacos Downs MD Assessment/Plan Problem List: (1) Chronic renal failure Status: Chronic (2) Ulcer of right foot with fat layer exposed Status: Resolved (3) Diabetes mellitus type 2, diet-controlled Status: Chronic (4) Peripheral neuropathy Status: Chronic (5) End stage renal disease on dialysis Status: Chronic (6) Neuropathic diabetic ulcer of foot Status: Chronic (7) Osteomyelitis of toe of right foot Status: Resolved (8) Diabetic foot ulcer Status: Acute Plan: Now open amputation site of the right hallux Additional Plans & Procedures PLAN: Dressing changed under aseptic condition. Repacked wound with Maxorb. I am going to order a negative pressure wound therapy VAC. Once the wound has granulated in and is clean of any bacteria patient will require a skin graft. Continue to follow. Problem Qualifiers (1) Chronic renal failure: Qualified Code: N18.4 - Chronic renal failure, stage 4 (severe) (2) Peripheral neuropathy: Qualified Code: G63 - Polyneuropathy associated with underlying disease (3) Diabetic foot ulcer: Qualified Code: E11.621 - Diabetic ulcer of toe of right foot associated with type 2 diabetes mellitus, with necrosis of bone Tacos Cruz DPM Jul 22, 2016 12:52
--- NOTE | 2016-07-22 15:08 | HHI.PR ---
Subjective Remarks Patient is very frustrated because of bleeding episode from a potential site last night and again today. Denies chest pain or short of breath Denies dizziness Denies fevers or chills There is one recorded episode of hypotension in the high 80s however patient asymptomatic. Objective Vitals Vital Signs Date Time Temp Pulse Resp B/P Pulse Ox O2 Delivery O2 Flow Rate FiO2 07/22/16 13:52 118/51 07/22/16 12:00 97.7 70 16 89/59 94 07/22/16 08:10 Room Air 07/22/16 08:10 64 07/22/16 08:00 98.1 68 16 103/60 95 07/22/16 08:00 95 21 07/22/16 04:00 97.9 70 18 128/59 98 07/22/16 00:00 98.4 79 18 112/57 94 07/21/16 20:00 Room Air 07/21/16 20:00 71 07/21/16 20:00 97.9 67 19 113/58 96 07/21/16 16:00 97.7 71 16 88/53 98 I/O 07/21/16 07/21/16 07/21/16 07/22/16 07/22/16 07/22/16 07:00 15:00 23:00 07:00 15:00 23:00 Intake Total 440 ml 410 ml 120 ml Output Total 15 ml 200 ml Balance 425 ml 410 ml -80 ml Intake Oral 240 ml 360 ml 120 ml IV Total 0 ml 50 ml Other 200 ml Output Urine Total 200 ml Estimated Blood Loss 15 ml # Voids 1 0 1 # Bowel Movements 1 0 1 Result Diagram: 07/22/1624 07/22/16 0724 Imaging Last Impressions Foot X-Ray 07/21/16 0000 Signed Impressions: Service Date/Time: Thursday, July 21, 2016 12:06 - CONCLUSION: Postsurgical changes are noted. There is soft tissue emphysema present and soft tissue ulceration at the level of the first digit stump. This is presumably related to recent surgery. Harvinder Cisse MD Tumor Localization 07/18/16 0000 Signed Impressions: Service Date/Time: Monday, July 18, 2016 13:46 - CONCLUSION: There is osteomyelitis involving the right first interphalangeal joint. Octavia Hale MD Chest X-Ray 07/17/162008 Signed Impressions: Service Date/Time: Sunday, July 17, 2016 20:30 - CONCLUSION: No acute disease. Tacos Downs MD Objective Remarks GENERAL: This is a well-nourished, well-developed patient, in no apparent distress. SKIN: No rashes, ecchymoses or lesions. Cool and dry. HEAD: Atraumatic. Normocephalic. No temporal or scalp tenderness. EYES: No scleral icterus. No injection or drainage. ENT: Nose without bleeding, purulent drainage or septal hematoma. Airway patent. NECK: Trachea midline. No JVD CARDIOVASCULAR: Regular rate and rhythm without murmurs, gallops, or rubs. RESPIRATORY: Clear to auscultation. Breath sounds equal bilaterally. No wheezes , rales, or rhonchi. GASTROINTESTINAL: Abdomen soft, non-tender, nondistended. No guarding. MUSCULOSKELETAL: Extremities without clubbing, cyanosis, or edema. No calf tenderness. Right plantar foot with open wound. Right big toe with significant swelling, pain, surrounding erythema. NEUROLOGICAL: Awake and alert. Motor and sensory grossly within normal limits. Normal speech. Medications and IVs Current Medications Medications (Trade) Dose Ordered Sig/Denisa Route Start Time Stop Time Status Last Admin (NS Flush) 2 ml UNSCH PRN IV FLUSH 07/17/16 23:00 (NS Flush) 2 ml BID IV FLUSH 07/18/16 09:00 07/22/16 07:47 Ondansetron HCl 4 mg 4 mg Q6H PRN IVP 07/17/16 23:00 (Zosyn 2.25 Gm Premix) 50 ml @ 100 mls/hr Q8H IV 07/18/16 05:00 07/22/16 14:02 (Ecotrin Ec) 81 mg DAILY PO 07/18/16 09:00 07/20/16 08:08 (Lipitor) 40 mg HS PO 07/18/16 21:00 07/21/16 20:14 (Coreg) 3.125 mg HS PO 07/18/16 21:00 07/21/16 20:14 (Neurontin) 200 mg Q24H PO 07/18/16 09:00 07/22/16 07:46 Heparin Sodium (Porcine) 5000 units 5,000 units Q8HR SQ 07/18/16 14:00 07/22/16 06:04 (NS 1000 ml Inj) 1,000 ml @ 0 mls/hr Q0M PRN IV 07/18/16 11:31 Heparin Sodium (Porcine) 8000 units 8,000 units UNSCH PRN IVF 07/18/16 11:45 Sodium Chloride 1,000 ml @ 200 mls/hr Q5H PRN IV 07/18/16 11:31 (NS 1000 ml Inj) 1,000 ml @ 0 mls/hr Q0M PRN IV 07/18/16 11:31 (Mannitol Inj) 12.5 gm UNSCH PRN IV 07/18/16 11:45 (Albumin 25% Inj) 25 gm UNSCH PRN IV 07/18/16 11:45 (NS Flush) 5 ml UNSCH PRN IV FLUSH 07/18/16 11:45 (Heparin Inj) UNSCH PRN .XX 07/18/16 11:45 (Gentamicin (Dialysis) Inj) 20 mg UNSCH PRN IV 07/18/16 11:45 (Zofran Inj) 4 mg UNSCH PRN IV 07/18/16 11:45 (Tylenol) 650 mg UNSCH PRN PO 07/18/16 11:45 (Benadryl) 25 mg UNSCH PRN PO 07/18/16 11:45 (Nitrostat Sl) 0.4 mg UNSCH PRN SL 07/18/16 11:45 (Catapres) 0.1 mg UNSCH PRN PO 07/18/16 11:45 (Epogen Inj) 6,000 units UNSCH PRN IV 07/18/16 11:45 07/20/16 13:08 (Gelfoam 12 Mm/7 Mm Top) 1 foam UNSCH PRN TOP 07/18/16 11:45 (NS Flush) 2 ml UNSCH PRN IV FLUSH 07/21/16 12:00 (NS Flush) 2 ml BID IV FLUSH 07/21/16 21:00 07/22/16 07:47 (Dilaudid Pf Inj) 1 mg Q3H PRN IV 07/21/16 12:00 (Dilaudid) 1 mg Q4H PRN PO 07/21/16 12:00 (Dilaudid) 2 mg Q4H PRN PO 07/21/16 12:00 07/22/16 14:02 (Narcan Inj) 0.4 mg UNSCH PRN IV 07/21/16 12:00 Urinary Catheter: No Vascular Central Line Catheter: No A/P Problem List: (1) Osteomyelitis of toe of right foot ICD Code: M86.9 Status: Resolved (2) Diabetic foot ulcer ICD Code: E11.621 Status: Acute (3) Peripheral neuropathy ICD Code: G62.9 Status: Chronic (4) End stage renal disease on dialysis ICD Code: N18.6 Status: Chronic (5) Diabetes mellitus type 2, diet-controlled ICD Code: E11.9 Status: Chronic (6) Hypertension ICD Code: I10 Status: Acute (7) Diarrhea ICD Code: R19.7 Status: Acute Assessment and Plan (1) Osteomyelitis of toe of right foot Confirmed by [facility] white blood cell tagged study. Podiatry consulted, discussed the case with Dr. Cruz. The patient will be scheduled for surgery on 07/21/16. ABIs ordered by me yesterday. Results show decrease ABIs on the right lower extremity. Medical surgery has been consulted by podiatry. Vascular surgery recommends a CTA with runoff. Follow-up recommendations. Wound cultures grew Proteus mirabilis. DC IV zosyn and start Iv Rocephin. 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 Follow-up orthopedic surgery recommendations. The patient to get a wound VAC. Patient has some bleeding from surgical amputation site. Hemoglobin is stable at 10.7. If it continues to bleed then orthopedic surgery will need to be contacted. (2) Diabetic foot ulcer Plan: As above. (3) Peripheral neuropathy Plan: seems stable. Continue gabapentin. (4) End stage renal disease on dialysis Plan: On hemodialysis schedule on Mondays and Saturday. Continue hemodialysis per nephrology recommendations. (5) Diabetes mellitus type 2, diet-controlled Plan: Patient's last hemoglobin A1c in October 2015 was 5.6. I will recheck hemoglobin A1c. Monitor Accu-Cheks and place on SSI with insulin NovoLog as needed. (6) Hypertension Plan: Blood presure very stable on previous days. Bp on the lower side today - hold antihypertensive medications. (7) Diarrhea Plan: Stool for C. difficile negative. Diarrhea resolved. Continue lactobacillus acidophilus. Assessment and Plan DVT prophylaxis: Hold heparin sub-tenderness due to bleeding from amputation site. DVT prophylaxis: Heparin subcutaneous. Discharge Planning Continue to monitor on the medical floor. Problem Qualifiers (1) Diabetic foot ulcer: Qualified Code: E11.621 - Diabetic ulcer of toe of right foot associated with type 2 diabetes mellitus, with necrosis of bone (2) Peripheral neuropathy: Qualified Code: G63 - Polyneuropathy associated with underlying disease (3) Hypertension: Qualified Code: I10 - Essential hypertension (4) Diarrhea: Qualified Code: R19.7 - Diarrhea, unspecified type Dru Dallas MD Jul 22, 2016 15:08
[2016-07-22] MEDS: cefTRIAXone INJ 1,000 MG in SODIUM CHLORIDE 0.9% INJ 100 ML IV SCH (17:07)
[2016-07-22] MEDS: ATORVASTATIN 40 MG TAB PO SCH (19:43)
--- NOTE | 2016-07-22 23:03 | RADRPT ---
EXAM DATE/TIME: 07/20/2016 17:56 [facility] COMPARISON: No previous studies available for comparison. INDICATIONS : Right great toe wound. IV CONTRAST: 75 cc Omnipaque 350 (iohexol) IV RADIATION DOSE: 7.78 CTDIvol (mGy) MEDICAL HISTORY : Diabetes mellitus type 2. Dialysis m-w-f SURGICAL HISTORY : Colectomy. ENCOUNTER: Initial ACUITY: 1 day PAIN SCALE: 0/10 LOCATION: Bilateral extrimeties TECHNIQUE: Volumetric scanning was performed using a multi-row detector CT scanner. The data was post processed with a variety of visualization algorithms including full volume maximum intensity projection, multi -planar sliding thin slab reformation, curved planar reformation, and surface rendering techniques. Using automated exposure control and adjustment of the mA and/or kV according to patient size, radiat ion dose was kept as low as reasonably achievable to obtain optimal diagnostic quality images. FINDINGS: The visualized portion of the liver and spleen are normal. There are multiple stones within the gallb ladder without wall thickening or pericholecystic fluid the largest measuring 3 mm. The visualized po rtion of the kidneys is normal. Examination of the pelvis demonstrates no evidence of free fluid or p elvic mass. No abnormally enlarged inguinal or retroperitoneal lymph nodes are present. The bladder i s unremarkable. The aorta is normal in caliber. There is no evidence of aneurysm or dissection. The superior mesenter ic artery origin is patent. The celiac axis is not evaluated. The renal artery origins are patent jose aterally. Examination of the right lower extremity demonstrates no evidence of inflow stenosis. The common femo ral artery is patent. The superficial femoral artery is widely patent. The popliteal segment is unrem arkable. There is three-vessel runoff to the ankle. Examination of the left lower extremity demonstrates no evidence of inflow stenosis. The common femor al artery is patent. The superficial femoral artery is widely patent. The popliteal segment is unrema rkable. There is three-vessel runoff to the ankle. CONCLUSION: Negative CT angiography of the aorta and lower extremities. Yoan Villegas MD on July 22, 2016 at 22:57 Board Certified Radiologist. This report was verified electronically.
[2016-07-23] VITALS (7 sets, daily range): BP systolic 105–125; BP diastolic 56–59; PULSE 75–89; RESP 12–20; TEMP 96.8–98.5; O2SAT 92–97
[2016-07-23] MEDS: HYDROmorphone HCL 2 MG TAB PO PRN ×4 (00:19→19:40)
[2016-07-23] MEDS: SODIUM CHLORIDE 0.9% FLUSH 10 ML FLUSH IV FLUSH SCH ×4 (09:00→21:11)
--- NOTE | 2016-07-23 10:37 | HHI.NPPN ---
Subjective General Problems: Anemia, Edema, Hypertension Renal Failure: End Stage Renal Disease History of Present Illness 56-year-old male known to me from before with past medical history of hypertension, diabetes mellitus, morbid obesity, history of end-stage renal disease on hemodialysis who came to the hospital with a complaint of right big toe infection and possibility of rule out osteomyelitis. I was called to see the patient for management of hemodialysis. He has been on hemodialysis Saturday, Saturday and Saturday. Additional Remarks Patient is alert, now on HD, has mile pain in Rt. foot, no SOB. Review of Systems General Constitutional: Fatigue Cardiovascular Cardiac: Edema, KUMAR Objective Data Data 07/22/16 07/23/16 19:00 07:00 Intake Total 480 ml 120 ml Balance 480 ml 120 ml Intake Oral 480 ml 120 ml # Voids 2 # Bowel Movements 1 2 Vital Signs Date Time Temp Pulse Resp B/P Pulse Ox O2 Delivery O2 Flow Rate FiO2 07/23/16 08:00 Room Air 07/23/16 08:00 97.9 83 12 116/59 97 07/23/16 04:00 98.2 75 20 125/56 97 07/23/16 00:00 96.8 89 19 111/58 92 07/22/16 20:00 98.2 79 18 115/78 96 07/22/16 20:00 Room Air 07/22/16 18:42 96 21 07/22/16 16:00 98.3 80 16 103/55 97 07/22/16 13:52 118/51 07/22/16 12:00 97.7 70 16 89/59 94 -: 07/22/16 0724 07/22/16 0724 Physical Exam General Appearance: No Acute Distress, Comfortable Eyes Eye Exam: Pupils Equal Throat Throat Exam: Oral Mucosa [place] & Moist Pulmonary Resp Exam: Clear Bilaterally, Breath Sounds Equal, No Distress, Decreased Bases Cardiology CV Exam: Regular, Normal Sinus Rhythm Gastrointestinal/Abdomen GI Exam: Soft, Non-Tender, Bowel Sounds Present, Distended Extremeties Extremities Exam: Trace Edema Neurologic Neuro Exam: Alert, Awake, Oriented Psychiatric Psych Exam: Appropriate Responses Assessment/Plan Assessment Summary: Hypertension, End Stage Renal Disease Problem List: (1) Diabetic foot ulcer (2) Peripheral neuropathy (3) Diabetes mellitus type 2, diet-controlled (4) Ulcer of right foot with fat layer exposed (5) Anemia (6) Hypertension (7) End stage renal disease on dialysis Plan Patient now on HD. BP is stable. Removing 3 liters. Has Rt. Hallux amputation. CTA results noted, and vascular follow up seen. No vascular problem. Plan as per Podiatry. HD will continue MWF. Problem Qualifiers (1) Diabetic foot ulcer: Qualified Code: E11.621 - Diabetic ulcer of toe of right foot associated with type 2 diabetes mellitus, with necrosis of bone (2) Peripheral neuropathy: Qualified Code: G63 - Polyneuropathy associated with underlying disease (3) Hypertension: Qualified Code: I10 - Essential hypertension Anatoliy Putnam MD July 23, 2016 10:37
[2016-07-23] MEDS: EPOETIN ALFA 10,000 UNITS/ML VIAL IV PRN (11:28)
--- NOTE | 2016-07-23 13:59 | HHI.PR ---
Subjective Remarks resting comfortably with no distress. had HD earlier today. pain is controlled. no fever. Objective Vitals Vital Signs Date Time Temp Pulse Resp B/P Pulse Ox O2 Delivery O2 Flow Rate FiO2 07/23/16 08:00 Room Air 07/23/16 08:00 97.9 83 12 116/59 97 07/23/16 04:00 98.2 75 20 125/56 97 07/23/16 00:00 96.8 89 19 111/58 92 07/22/16 20:00 98.2 79 18 115/78 96 07/22/16 20:00 Room Air 07/22/16 18:42 96 21 07/22/16 16:00 98.3 80 16 103/55 97 I/O 07/22/16 07/22/16 07/22/16 07/23/16 07/23/16 07/23/16 07:00 15:00 23:00 07:00 15:00 23:00 Intake Total 120 ml 480 ml 120 ml Output Total 200 ml 3000 ml Balance -80 ml 480 ml 120 ml -3000 ml Intake Oral 120 ml 480 ml 120 ml Output Urine Total 200 ml Hemodialysis 3000 ml # Voids 2 # Bowel Movements 1 1 2 Result Diagram: 07/22/16 0724 07/22/16 0724 Imaging Last Impressions Foot X-Ray 07/21/16 0000 Signed Impressions: Service Date/Time: Thursday, July 21, 2016 12:06 - CONCLUSION: Postsurgical changes are noted. There is soft tissue emphysema present and soft tissue ulceration at the level of the first digit stump. This is presumably related to recent surgery. Harvinder Cisse MD Aorta w/Runoff CTA 07/20/16 0000 Signed Impressions: Service Date/Time: Wednesday, July 20, 2016 17:56 - CONCLUSION: Negative CT angiography of the aorta and lower extremities. Yoan Villegas MD Tumor Localization 07/18/16 0000 Signed Impressions: Service Date/Time: Monday, July 18, 2016 13:46 - CONCLUSION: There is osteomyelitis involving the right first interphalangeal joint. Octavia Hale MD Chest X-Ray 07/17/162008 Signed Impressions: Service Date/Time: Sunday, July 17, 2016 20:30 - CONCLUSION: No acute disease. Tacos Downs MD Objective Remarks GENERAL: This is a well-nourished, well-developed patient, in no apparent distress. CARDIOVASCULAR: Regular rate and regular rhythm without murmurs, gallops, or rubs. RESPIRATORY: Clear to auscultation. Breath sounds equal bilaterally. No wheezes , rales, or rhonchi. GASTROINTESTINAL: Abdomen soft, non-tender, nondistended. Normal, active bowel sounds MUSCULOSKELETAL: right foot covered with clean dressing. NEURO: Alert & Oriented x4 to person, place, time, situation. Moves all ext x4 Procedures amputation of the right hallux. Medications and IVs Current Medications Vancomycin HCl 1000 mg/Sodium Chloride 250 ml @ 250 mls/hr ONCE ONCE IV Last administered on 07/17/16 22:14; Start 07/17/16 at 20:15; Stop 07/17/16 at 21:14 ; Status DC Piperacillin Sod/ Tazobactam Sod (Zosyn 3.375 Gm Premix) 50 ml @ 100 mls/hr ONCE ONCE IV Last administered on 07/17/16 22:14; Start 07/17/16 at 20:15; Stop 07/17/16 at 20:44; Status DC Ondansetron HCl (Zofran Inj) 4 mg ONCE ONCE IV Last administered on 07/17/16 22:14; Start 07/17/16 at 22:15; Stop 07/17/16 at 22:16; Status DC Ondansetron HCl (Zofran Inj) 4 mg STK-MED ONCE .ROUTE ; Start 07/17/16 at 22:12 ; Stop 07/17/16 at 22:13; Status DC Sodium Chloride (NS Flush) 2 ml UNSCH PRN IV FLUSH FLUSH AFTER USING IV ACCESS ; Start 07/17/16 at 23:00 Sodium Chloride (NS Flush) 2 ml BID IV FLUSH Last administered on 07/22/16 19: 31; Start 07/18/16 at 09:00 Ondansetron HCl (Zofran Inj) 4 mg Q6H PRN IVP NAUSEA OR VOMITING; Start at 23:00 Naloxone HCl 0.4 mg 0.4 mg UNSCH PRN IV SEE LABEL COMMENTS; Start 07/17/16 at 23:00; Stop 07/21/16 at 12:01; Status DC Piperacillin Sod/ Tazobactam Sod 100 ml @ 200 mls/hr Q6H IV ; Start 07/18/16 at 05:00; Status UNV Piperacillin Sod/ Tazobactam Sod (Zosyn 2.25 Gm Premix) 50 ml @ 100 mls/hr Q8H IV Last administered on 07/22/16 14:02; Start 07/18/16 at 05:00; Stop at 14:59; Status DC Aspirin (Ecotrin Ec) 81 mg DAILY PO Last administered on 07/20/16 08:08; Start 07/18/16 at 09:00 Atorvastatin Calcium (Lipitor) 40 mg HS PO Last administered on 07/22/16 19:43 ; Start 07/18/16 at 21:00 Carvedilol (Coreg) 3.125 mg HS PO Last administered on 07/21/16 20:14; Start 07/18/16 at 21:00; Stop 07/22/16 at 15:00; Status DC Gabapentin (Neurontin) 200 mg Q24H PO Last administered on 07/22/16 07:46; Start 07/18/16 at 09:00 Heparin Sodium (Porcine) 5000 units 5,000 units Q8HR SQ Last administered on 06:04; Start 07/18/16 at 14:00; Status Hold Sodium Chloride (NS 1000 ml Inj) 1,000 ml @ 0 mls/hr Q0M PRN IV For Prime & Rinse Back; Start 07/18/16 at 11:31 Heparin Sodium (Porcine) 8000 units 8,000 units UNSCH PRN IVF WITH DIALYSIS; Start 07/18/16 at 11:45 Sodium Chloride 1,000 ml @ 200 mls/hr Q5H PRN IV WITH DIALYSIS Last administered on 07/23/16 11:28; Start 07/18/16 at 11:31 Sodium Chloride (NS 1000 ml Inj) 1,000 ml @ 0 mls/hr Q0M PRN IV WITH DIALYSIS; Start 07/18/16 at 11:31 Mannitol (Mannitol Inj) 12.5 gm UNSCH PRN IV WITH DIALYSIS; Start 07/18/16 at 11:45 Albumin Human (Albumin 25% Inj) 25 gm UNSCH PRN IV WITH DIALYSIS; Start at 11:45 Sodium Chloride (NS Flush) 5 ml UNSCH PRN IV FLUSH WITH DIALYSIS; Start at 11:45 Heparin Sodium (Porcine) (Heparin Inj) UNSCH PRN .XX WITH DIALYSIS; Start at 11:45 Gentamicin Sulfate (Gentamicin (Dialysis) Inj) 20 mg UNSCH PRN IV WITH DIALYSIS ; Start 07/18/16 at 11:45 Ondansetron HCl (Zofran Inj) 4 mg UNSCH PRN IV WITH DIALYSIS; Start 07/18/16 at 11:45 Acetaminophen (Tylenol) 650 mg UNSCH PRN PO for headach, pain 1-10,T> 101F; Start 07/18/16 at 11:45 Diphenhydramine HCl (Benadryl) 25 mg UNSCH PRN PO for hives/itching/anaphylaxis ; Start 07/18/16 at 11:45 Nitroglycerin (Nitrostat Sl) 0.4 mg UNSCH PRN SL CHEST PAIN; Start 07/18/16 at 11:45 Clonidine (Catapres) 0.1 mg UNSCH PRN PO for BP > 180/100 X 2 readings; Start 07/18/16 at 11:45 Epoetin Chris (Epogen Inj) 6,000 units UNSCH PRN IV WITH DIALYSIS Last administered on 07/23/16 11:28; Start 07/18/16 at 11:45 Gelatin (Gelfoam 12 Mm/7 Mm Top) 1 foam UNSCH PRN TOP SEE LABEL COMMENTS Last administered on 07/23/16 11:28; Start 07/18/16 at 11:45 Iohexol (Omnipaque 350 Inj) 75 ml STK-MED ONCE IV Last administered on 18:11; Start 07/20/16 at 18:11; Stop 07/20/16 at 18:12; Status DC Fentanyl Citrate (fentaNYL INJ) 100 mcg STK-MED ONCE .ROUTE ; Start 07/21/16 at 10:58; Stop 07/21/16 at 10:59; Status DC Fentanyl Citrate (fentaNYL INJ) 250 mcg STK-MED ONCE .ROUTE ; Start 07/21/16 at 10:58; Stop 07/21/16 at 10:59; Status DC Bupivacaine HCl (Marcaine Pf 0.5% Inj) 30 ml STK-MED ONCE .ROUTE Last administered on 07/21/16 11:38; Start 07/21/16 at 11:04; Stop 07/21/16 at 11:05 ; Status DC Sodium Chloride (NS Flush) 2 ml UNSCH PRN IV FLUSH FLUSH AFTER USING IV ACCESS ; Start 07/21/16 at 12:00 Sodium Chloride (NS Flush) 2 ml BID IV FLUSH Last administered on 07/22/16 07: 47; Start 07/21/16 at 21:00 Miscellaneous Information (Post-op Orders (for Pharmacy)) STAT ONCE XX Last administered on 07/21/16 12:00; Start 07/21/16 at 12:00; Stop 07/21/16 at 12:06 ; Status DC Acetaminophen (Ofirmev Inj) 1,000 mg Q6H IV Last administered on 07/22/16 06: 58; Start 07/21/16 at 13:00; Stop 07/22/16 at 07:01; Status DC Hydromorphone HCl (Dilaudid Pf Inj) 1 mg Q3H PRN IV BREAKTHROUGH PAIN; Start at 12:00 Hydromorphone HCl (Dilaudid) 1 mg Q4H PRN PO PAIN SCALE 3 TO 5; Start 07/21/16 at 12:00 Hydromorphone HCl (Dilaudid) 2 mg Q4H PRN PO PAIN SCALE 6 TO 10 Last administered on 07/23/16 05:56; Start 07/21/16 at 12:00 Naloxone HCl (Narcan Inj) 0.4 mg UNSCH PRN IV SEE LABEL COMMENTS; Start at 12:00 Albuterol Sulfate (*ALBUTEROL NEB PERIprocedure ONLY) 2.5 mg STK-MED ONCE NEB Last administered on 07/21/16 12:08; Start 07/21/16 at 12:08; Stop 07/21/16 at 12:09; Status DC Miscellaneous Information ALL NURSING DEPARTME... UNSCH PRN .XX SEE LABEL COMMENTS; Start 07/21/16 at 12:45; Stop 07/22/16 at 12:44; Status DC Ceftriaxone Sodium/Sodium Chloride (Rocephin Inj/NS Inj) 100 ml @ 200 mls/hr Q24H IV Last administered on 4/30/17at 17:07; Start 07/22/16 at 16:00 A/P Assessment and Plan A/P (1) Osteomyelitis of toe of right foot Podiatry consulted,s/p amputation of the right hallux. vascular surgery evaluated and signed off. Wound cultures grew Proteus mirabilis. DC'ed IV zosyn and start Iv Rocephin. 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 Follow-up orthopedic surgery recommendations. The patient to get a wound VAC. (2) Diabetic foot ulcer Plan: As above. (3) Peripheral neuropathy Plan: seems stable. Continue gabapentin. (4) End stage renal disease on dialysis Plan: On hemodialysis schedule on Mondays and Saturday. Continue hemodialysis per nephrology recommendations. (5) Diabetes mellitus type 2, diet-controlled Plan: Patient's last hemoglobin A1c in October 2015 was 5.6. Monitor Accu- Cheks and place on SSI with insulin NovoLog as needed. (6) Hypertension Plan: Blood presure very stable on previous days. hold antihypertensive medications. (7) Diarrhea Plan: Stool for C. difficile negative. Diarrhea resolved. Continue lactobacillus acidophilus. Assessment and Plan DVT prophylaxis: Hold heparin sub-tenderness for now due to bleeding from amputation site. Marjorie Bagley MD July 23, 2016 13:59
[2016-07-23] MEDS: ASPIRIN EC 81 MG TABEC PO SCH (14:16)
[2016-07-23] MEDS: GABAPENTIN 100 MG CAP PO SCH (14:16)
[2016-07-23] MEDS ORDERED: ACETAMINOPHEN 325 MG TAB PO PRN (18:00)
[2016-07-23] MEDS: cefTRIAXone INJ 1,000 MG in SODIUM CHLORIDE 0.9% INJ 100 ML IV SCH (19:40)
[2016-07-23] MEDS: ATORVASTATIN 40 MG TAB PO SCH (21:11)
[2016-07-24] VITALS (9 sets, daily range): BP systolic 98–133; BP diastolic 54–72; PULSE 75–85; RESP 16–20; TEMP 97.5–98.6; O2SAT 93–96
[2016-07-24] MEDS: HYDROmorphone HCL 2 MG TAB PO PRN (06:15)
[2016-07-24] MEDS: GABAPENTIN 100 MG CAP PO SCH (07:42)
[2016-07-24] MEDS: ASPIRIN EC 81 MG TABEC PO SCH (07:42)
[2016-07-24] MEDS: SODIUM CHLORIDE 0.9% FLUSH 10 ML FLUSH IV FLUSH SCH ×3 (09:00→20:23)
--- NOTE | 2016-07-24 10:27 | HHI.PR ---
Subjective Remarks resting comfortably with no distress. has some pain to the right foot and mild nausea. no fever. Objective Vitals Vital Signs Date Time Temp Pulse Resp B/P Pulse Ox O2 Delivery O2 Flow Rate FiO2 07/24/16 08:35 78 07/24/16 08:00 Room Air 07/24/16 08:00 98.2 82 20 106/72 95 07/24/16 04:00 98.3 85 16 115/58 96 07/24/16 00:00 98.6 76 18 98/54 94 07/23/16 21:04 84 07/23/16 20:45 Room Air 07/23/16 20:00 98.3 82 20 105/56 96 07/23/16 19:44 96 21 07/23/16 16:00 98.5 83 16 109/59 95 I/O 07/23/16 07/23/16 07/23/16 07/24/16 07/24/16 07/24/16 06:59 14:59 22:59 06:59 14:59 22:59 Intake Total 120 ml 120 ml 342 ml 242 ml Output Total 3000 ml Balance 120 ml -2880 ml 342 ml 242 ml Intake Oral 120 ml 120 ml 240 ml 240 ml IV Total 102 ml 2 ml Output Urine Total 0 ml Hemodialysis 3000 ml # Voids 2 0 0 # Bowel Movements 2 2 0 0 Result Diagram: 07/22/1624 07/22/1624 Imaging Last Impressions Foot X-Ray 07/21/16 Signed Impressions: Service Date/Time: Thursday, July 21, 2016 12:06 - CONCLUSION: Postsurgical changes are noted. There is soft tissue emphysema present and soft tissue ulceration at the level of the first digit stump. This is presumably related to recent surgery. Harvinder Cisse MD Aorta w/Runoff CTA 07/20/16 0000 Signed Impressions: Service Date/Time: Wednesday, July 20, 2016 17:56 - CONCLUSION: Negative CT angiography of the aorta and lower extremities. Yoan Villegas MD Tumor Localization 07/18/16 0000 Signed Impressions: Service Date/Time: Monday, July 18, 2016 13:46 - CONCLUSION: There is osteomyelitis involving the right first interphalangeal joint. Octavia Hale MD Chest X-Ray 07/17/162008 Signed Impressions: Service Date/Time: Sunday, July 17, 2016 20:30 - CONCLUSION: No acute disease. Tacos Downs MD Objective Remarks GENERAL: This is a well-nourished, well-developed patient, in no apparent distress. CARDIOVASCULAR: Regular rate and regular rhythm without murmurs, gallops, or rubs. RESPIRATORY: Clear to auscultation. Breath sounds equal bilaterally. No wheezes , rales, or rhonchi. GASTROINTESTINAL: Abdomen soft, non-tender, nondistended. Normal, active bowel sounds MUSCULOSKELETAL: right foot covered with clean dressing. NEURO: Alert & Oriented x4 to person, place, time, situation. Moves all ext x4 Procedures amputation of the right hallux. Medications and IVs Current Medications Vancomycin HCl 1000 mg/Sodium Chloride 250 ml @ 250 mls/hr ONCE ONCE IV Last administered on 07/17/16 22:14; Start 07/17/16 at 20:15; Stop 07/17/16 at 21:14 ; Status DC Piperacillin Sod/ Tazobactam Sod (Zosyn 3.375 Gm Premix) 50 ml @ 100 mls/hr ONCE ONCE IV Last administered on 07/17/16 22:14; Start 07/17/16 at 20:15; Stop 07/17/16 at 20:44; Status DC Ondansetron HCl (Zofran Inj) 4 mg ONCE ONCE IV Last administered on 07/17/16 22:14; Start 07/17/16 at 22:15; Stop 07/17/16 at 22:16; Status DC Ondansetron HCl (Zofran Inj) 4 mg STK-MED ONCE .ROUTE ; Start 07/17/16 at 22:12 ; Stop 07/17/16 at 22:13; Status DC Sodium Chloride (NS Flush) 2 ml UNSCH PRN IV FLUSH FLUSH AFTER USING IV ACCESS ; Start 07/17/16 at 23:00 Sodium Chloride (NS Flush) 2 ml BID IV FLUSH Last administered on 07/23/16 21: 11; Start 07/18/16 at 09:00 Ondansetron HCl (Zofran Inj) 4 mg Q6H PRN IVP NAUSEA OR VOMITING Last administered on 07/24/16 08:12; Start 07/17/16 at 23:00 Naloxone HCl 0.4 mg 0.4 mg UNSCH PRN IV SEE LABEL COMMENTS; Start 07/17/16 at 23:00; Stop 07/21/16 at 12:01; Status DC Piperacillin Sod/ Tazobactam Sod 100 ml @ 200 mls/hr Q6H IV ; Start 07/18/16 at 05:00; Status UNV Piperacillin Sod/ Tazobactam Sod (Zosyn 2.25 Gm Premix) 50 ml @ 100 mls/hr Q8H IV Last administered on 07/22/16 14:02; Start 07/18/16 at 05:00; Stop at 14:59; Status DC Aspirin (Ecotrin Ec) 81 mg DAILY PO Last administered on 07/24/16 07:42; Start 07/18/16 at 09:00 Atorvastatin Calcium (Lipitor) 40 mg HS PO Last administered on 07/23/16 21:11 ; Start 07/18/16 at 21:00 Carvedilol (Coreg) 3.125 mg HS PO Last administered on 07/21/16 20:14; Start 07/18/16 at 21:00; Stop 07/22/16 at 15:00; Status DC Gabapentin (Neurontin) 200 mg Q24H PO Last administered on 07/24/16 07:42; Start 07/18/16 at 09:00 Heparin Sodium (Porcine) 5000 units 5,000 units Q8HR SQ Last administered on 06:04; Start 07/18/16 at 14:00; Status Hold Sodium Chloride (NS 1000 ml Inj) 1,000 ml @ 0 mls/hr Q0M PRN IV For Prime & Rinse Back; Start 07/18/16 at 11:31 Heparin Sodium (Porcine) 8000 units 8,000 units UNSCH PRN IVF WITH DIALYSIS; Start 07/18/16 at 11:45 Sodium Chloride 1,000 ml @ 200 mls/hr Q5H PRN IV WITH DIALYSIS Last administered on 07/23/16 11:28; Start 07/18/16 at 11:31 Sodium Chloride (NS 1000 ml Inj) 1,000 ml @ 0 mls/hr Q0M PRN IV WITH DIALYSIS; Start 07/18/16 at 11:31 Mannitol (Mannitol Inj) 12.5 gm UNSCH PRN IV WITH DIALYSIS; Start 07/18/16 at 11:45 Albumin Human (Albumin 25% Inj) 25 gm UNSCH PRN IV WITH DIALYSIS; Start at 11:45 Sodium Chloride (NS Flush) 5 ml UNSCH PRN IV FLUSH WITH DIALYSIS; Start at 11:45 Heparin Sodium (Porcine) (Heparin Inj) UNSCH PRN .XX WITH DIALYSIS; Start at 11:45 Gentamicin Sulfate (Gentamicin (Dialysis) Inj) 20 mg UNSCH PRN IV WITH DIALYSIS ; Start 07/18/16 at 11:45 Ondansetron HCl (Zofran Inj) 4 mg UNSCH PRN IV WITH DIALYSIS; Start 07/18/16 at 11:45 Acetaminophen (Tylenol) 650 mg UNSCH PRN PO for headach, pain 1-10,T> 101F; Start 07/18/16 at 11:45; Stop 07/23/16 at 14:13; Status DC Diphenhydramine HCl (Benadryl) 25 mg UNSCH PRN PO for hives/itching/anaphylaxis ; Start 07/18/16 at 11:45 Nitroglycerin (Nitrostat Sl) 0.4 mg UNSCH PRN SL CHEST PAIN; Start 07/18/16 at 11:45 Clonidine (Catapres) 0.1 mg UNSCH PRN PO for BP > 180/100 X 2 readings; Start 07/18/16 at 11:45 Epoetin Chris (Epogen Inj) 6,000 units UNSCH PRN IV WITH DIALYSIS Last administered on 07/23/16 11:28; Start 07/18/16 at 11:45 Gelatin (Gelfoam 12 Mm/7 Mm Top) 1 foam UNSCH PRN TOP SEE LABEL COMMENTS Last administered on 07/23/16 11:28; Start 07/18/16 at 11:45 Iohexol (Omnipaque 350 Inj) 75 ml STK-MED ONCE IV Last administered on 18:11; Start 07/20/16 at 18:11; Stop 07/20/16 at 18:12; Status DC Fentanyl Citrate (fentaNYL INJ) 100 mcg STK-MED ONCE .ROUTE ; Start 07/21/16 at 10:58; Stop 07/21/16 at 10:59; Status DC Fentanyl Citrate (fentaNYL INJ) 250 mcg STK-MED ONCE .ROUTE ; Start 07/21/16 at 10:58; Stop 07/21/16 at 10:59; Status DC Bupivacaine HCl (Marcaine Pf 0.5% Inj) 30 ml STK-MED ONCE .ROUTE Last administered on 07/21/16 11:38; Start 07/21/16 at 11:04; Stop 07/21/16 at 11:05 ; Status DC Sodium Chloride (NS Flush) 2 ml UNSCH PRN IV FLUSH FLUSH AFTER USING IV ACCESS ; Start 07/21/16 at 12:00 Sodium Chloride (NS Flush) 2 ml BID IV FLUSH Last administered on 07/23/16 09: 00; Start 07/21/16 at 21:00 Miscellaneous Information (Post-op Orders (for Pharmacy)) STAT ONCE XX Last administered on 07/21/16 12:00; Start 07/21/16 at 12:00; Stop 07/21/16 at 12:06 ; Status DC Acetaminophen (Ofirmev Inj) 1,000 mg Q6H IV Last administered on 07/22/16 06: 58; Start 07/21/16 at 13:00; Stop 07/22/16 at 07:01; Status DC Hydromorphone HCl (Dilaudid Pf Inj) 1 mg Q3H PRN IV BREAKTHROUGH PAIN Last administered on 07/24/16 07:43; Start 07/21/16 at 12:00 Hydromorphone HCl (Dilaudid) 1 mg Q4H PRN PO PAIN SCALE 3 TO 5; Start 07/21/16 at 12:00 Hydromorphone HCl (Dilaudid) 2 mg Q4H PRN PO PAIN SCALE 6 TO 10 Last administered on 07/24/16 06:15; Start 07/21/16 at 12:00 Naloxone HCl (Narcan Inj) 0.4 mg UNSCH PRN IV SEE LABEL COMMENTS; Start at 12:00 Albuterol Sulfate (*ALBUTEROL NEB PERIprocedure ONLY) 2.5 mg STK-MED ONCE NEB Last administered on 07/21/16 12:08; Start 07/21/16 at 12:08; Stop 07/21/16 at 12:09; Status DC Miscellaneous Information ALL NURSING DEPARTME... UNSCH PRN .XX SEE LABEL COMMENTS; Start 07/21/16 at 12:45; Stop 07/22/16 at 12:44; Status DC Ceftriaxone Sodium/Sodium Chloride (Rocephin Inj/NS Inj) 100 ml @ 200 mls/hr Q24H IV Last administered on 07/23/16t 19:40; Start 07/22/16 at 16:00 Acetaminophen (Tylenol) 650 mg Q6HR PRN PO for headach, pain 1-10,T> 101F; Start 07/23/16 at 18:00 A/P Assessment and Plan A/P (1) Osteomyelitis of toe of right foot Podiatry consulted,s/p amputation of the right hallux. vascular surgery evaluated and signed off. Wound cultures grew Proteus mirabilis. DC'ed IV zosyn and started Iv Rocephin. 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 Follow-up orthopedic surgery recommendations. The patient to get a wound VAC. (2) Diabetic foot ulcer Plan: As above. (3) Peripheral neuropathy Plan: seems stable. Continue gabapentin. (4) End stage renal disease on dialysis Plan: On hemodialysis schedule on Mondays and Saturday. Continue hemodialysis per nephrology recommendations. (5) Diabetes mellitus type 2, diet-controlled Plan: Patient's last hemoglobin A1c in October 2015 was 5.6. Monitor Accu- Cheks and place on SSI with insulin NovoLog as needed. (6) Hypertension Plan: Blood presure very stable on previous days. hold antihypertensive medications. (7) Diarrhea Plan: Stool for C. difficile negative. Diarrhea resolved. Continue lactobacillus acidophilus. Assessment and Plan DVT prophylaxis: Hold heparin sub-tenderness for now due to bleeding from amputation site. Discharge Planning possible dc home tomorrow after HD when cleared by podiatry. case management for [facility]. Marjorie Bagley MD July 24, 2016 10:27
[2016-07-24] MEDS ORDERED: HYDR-3288 PO (10:28)
[2016-07-24] MEDS ORDERED: AUGM875T PO (10:28)
--- NOTE | 2016-07-24 10:29 | HHI.DCPOC ---
Discharge Care Plan Diagnosis: (1) Ulcer of right foot with fat layer exposed Your Health Problems Are: Inflammation Swelling Goals to Promote Your Health * To prevent worsening of your condition and complications * To maintain your health at the optimal level Directions to Meet Your Goals Take your medications as prescribed Follow your dietary instruction Follow activity as directed Keep your appointments as scheduled Take your immunizations and boosters as scheduled If your symptoms worsen call your PCP, if no PCP go to Urgent Care Center or Emergency Room Smoking is Dangerous to Your Health. Avoid second hand smoke Call the 24-hour hour crisis hotline for domestic abuse at Marjorie Bagley MD July 24, 2016 10:29
--- NOTE | 2016-07-24 10:30 | HHI.FF ---
Face to Face Verification Diagnosis: (1) Osteomyelitis of toe of right foot Physical Therapy Order: Evaluate and Treat Home Health Nursing Order: Medical education Signs/symptoms of disease process Medication education-adverse effect Wound care and dressing changes I have seen patient Master [place] on 07/24/16. My clinical findings support the need for the requested home health care services because: Ltd mobility - disease progression I certify that my clinical findings support that this patient is homebound because: Unsteady gait/balance Marjorie Bagley MD July 24, 2016 10:30
--- NOTE | 2016-07-24 12:57 | PD.WOU.PN ---
Patient Intake Chief Complaint Open amputation site right hallux Consult Requested by Reason for Consult Follow-up of open amputation right hallux Primary Care Physician No Primary Care Physician History of Present Illness Patient is a 56-year-old diabetic male on hemodialysis who presented with osteomyelitis of the right hallux. Last Saturday he underwent amputation of the right hallux. Maxorb dressings have been used Coded Allergies: Metoprolol (Verified Allergy, Severe, Blurred Vision, lightheadedness, nausea, 07/17/16) Norvasc (Verified Allergy, Severe, Blurred Vision, lightheaded, nausea, ) *MDRO Multi-Drug Resistant Organism (Verified Adverse Reaction, Unknown, ) MRSA (wounds) - 2005; (foot) - 12/22/15, 01/12/16, 05/01/16, 07/03/16 Preferred Language to Discuss: Peruvian Interpretation Service: Carmella Reza Teaching Method: Discussion Vital Signs Date Time Temp Pulse Resp B/P Pulse Ox O2 Delivery O2 Flow Rate FiO2 07/24/16 11:29 95 21 07/24/16 08:35 78 07/24/16 08:00 Room Air 07/24/16 08:00 98.2 82 20 106/72 95 07/24/16 04:00 98.3 85 16 115/58 96 07/24/16 00:00 98.6 76 18 98/54 94 07/23/16 21:04 84 07/23/16 20:45 Room Air 07/23/16 20:00 98.3 82 20 105/56 96 07/23/16 19:44 96 21 07/23/16 16:00 98.5 83 16 109/59 95 Pain scale used: 0-10 numeric scale Pain score: 2 Medications Current Medications Vancomycin HCl 1000 mg/Sodium Chloride 250 ml @ 250 mls/hr ONCE ONCE IV Last administered on 07/17/16 22:14; Start 07/17/16 at 20:15; Stop 07/17/16 at 21:14 ; Status DC Piperacillin Sod/ Tazobactam Sod (Zosyn 3.375 Gm Premix) 50 ml @ 100 mls/hr ONCE ONCE IV Last administered on 07/17/16 22:14; Start 07/17/16 at 20:15; Stop 07/17/16 at 20:44; Status DC Ondansetron HCl (Zofran Inj) 4 mg ONCE ONCE IV Last administered on 07/17/16 22:14; Start 07/17/16 at 22:15; Stop 07/17/16 at 22:16; Status DC Ondansetron HCl (Zofran Inj) 4 mg STK-MED ONCE .ROUTE ; Start 07/17/16 at 22:12 ; Stop 07/17/16 at 22:13; Status DC Sodium Chloride (NS Flush) 2 ml UNSCH PRN IV FLUSH FLUSH AFTER USING IV ACCESS ; Start 07/17/16 at 23:00 Sodium Chloride (NS Flush) 2 ml BID IV FLUSH Last administered on 07/23/16 21: 11; Start 07/18/16 at 09:00 Ondansetron HCl (Zofran Inj) 4 mg Q6H PRN IVP NAUSEA OR VOMITING Last administered on 07/24/16 08:12; Start 07/17/16 at 23:00 Naloxone HCl 0.4 mg 0.4 mg UNSCH PRN IV SEE LABEL COMMENTS; Start 07/17/16 at 23:00; Stop 07/21/16 at 12:01; Status DC Piperacillin Sod/ Tazobactam Sod 100 ml @ 200 mls/hr Q6H IV ; Start 07/18/16 at 05:00; Status UNV Piperacillin Sod/ Tazobactam Sod (Zosyn 2.25 Gm Premix) 50 ml @ 100 mls/hr Q8H IV Last administered on 07/22/16 14:02; Start 07/18/16 at 05:00; Stop at 14:59; Status DC Aspirin (Ecotrin Ec) 81 mg DAILY PO Last administered on 07/24/16 07:42; Start 07/18/16 at 09:00 Atorvastatin Calcium (Lipitor) 40 mg HS PO Last administered on 07/23/16 21:11 ; Start 07/18/16 at 21:00 Carvedilol (Coreg) 3.125 mg HS PO Last administered on 07/21/16 20:14; Start 07/18/16 at 21:00; Stop 07/22/16 at 15:00; Status DC Gabapentin (Neurontin) 200 mg Q24H PO Last administered on 07/24/16 07:42; Start 07/18/16 at 09:00 Heparin Sodium (Porcine) 5000 units 5,000 units Q8HR SQ Last administered on 06:04; Start 07/18/16 at 14:00; Status Hold Sodium Chloride (NS 1000 ml Inj) 1,000 ml @ 0 mls/hr Q0M PRN IV For Prime & Rinse Back; Start 07/18/16 at 11:31 Heparin Sodium (Porcine) 8000 units 8,000 units UNSCH PRN IVF WITH DIALYSIS; Start 07/18/16 at 11:45 Sodium Chloride 1,000 ml @ 200 mls/hr Q5H PRN IV WITH DIALYSIS Last administered on 07/23/16 11:28; Start 07/18/16 at 11:31 Sodium Chloride (NS 1000 ml Inj) 1,000 ml @ 0 mls/hr Q0M PRN IV WITH DIALYSIS; Start 07/18/16 at 11:31 Mannitol (Mannitol Inj) 12.5 gm UNSCH PRN IV WITH DIALYSIS; Start 07/18/16 at 11:45 Albumin Human (Albumin 25% Inj) 25 gm UNSCH PRN IV WITH DIALYSIS; Start at 11:45 Sodium Chloride (NS Flush) 5 ml UNSCH PRN IV FLUSH WITH DIALYSIS; Start at 11:45 Heparin Sodium (Porcine) (Heparin Inj) UNSCH PRN .XX WITH DIALYSIS; Start at 11:45 Gentamicin Sulfate (Gentamicin (Dialysis) Inj) 20 mg UNSCH PRN IV WITH DIALYSIS ; Start 07/18/16 at 11:45 Ondansetron HCl (Zofran Inj) 4 mg UNSCH PRN IV WITH DIALYSIS; Start 07/18/16 at 11:45 Acetaminophen (Tylenol) 650 mg UNSCH PRN PO for headach, pain 1-10,T> 101F; Start 07/18/16 at 11:45; Stop 07/23/16 at 14:13; Status DC Diphenhydramine HCl (Benadryl) 25 mg UNSCH PRN PO for hives/itching/anaphylaxis ; Start 07/18/16 at 11:45 Nitroglycerin (Nitrostat Sl) 0.4 mg UNSCH PRN SL CHEST PAIN; Start 07/18/16 at 11:45 Clonidine (Catapres) 0.1 mg UNSCH PRN PO for BP > 180/100 X 2 readings; Start 07/18/16 at 11:45 Epoetin Chris (Epogen Inj) 6,000 units UNSCH PRN IV WITH DIALYSIS Last administered on 07/23/16 11:28; Start 07/18/16 at 11:45 Gelatin (Gelfoam 12 Mm/7 Mm Top) 1 foam UNSCH PRN TOP SEE LABEL COMMENTS Last administered on 07/23/16 11:28; Start 07/18/16 at 11:45 Iohexol (Omnipaque 350 Inj) 75 ml STK-MED ONCE IV Last administered on 18:11; Start 07/20/16 at 18:11; Stop 07/20/16 at 18:12; Status DC Fentanyl Citrate (fentaNYL INJ) 100 mcg STK-MED ONCE .ROUTE ; Start 07/21/16 at 10:58; Stop 07/21/16 at 10:59; Status DC Fentanyl Citrate (fentaNYL INJ) 250 mcg STK-MED ONCE .ROUTE ; Start 07/21/16 at 10:58; Stop 07/21/16 at 10:59; Status DC Bupivacaine HCl (Marcaine Pf 0.5% Inj) 30 ml STK-MED ONCE .ROUTE Last administered on 07/21/16 11:38; Start 07/21/16 at 11:04; Stop 07/21/16 at 11:05 ; Status DC Sodium Chloride (NS Flush) 2 ml UNSCH PRN IV FLUSH FLUSH AFTER USING IV ACCESS ; Start 07/21/16 at 12:00 Sodium Chloride (NS Flush) 2 ml BID IV FLUSH Last administered on 07/23/16 09: 00; Start 07/21/16 at 21:00 Miscellaneous Information (Post-op Orders (for Pharmacy)) STAT ONCE XX Last administered on 07/21/16 12:00; Start 07/21/16 at 12:00; Stop 07/21/16 at 12:06 ; Status DC Acetaminophen (Ofirmev Inj) 1,000 mg Q6H IV Last administered on 07/22/16 06: 58; Start 07/21/16 at 13:00; Stop 07/22/16 at 07:01; Status DC Hydromorphone HCl (Dilaudid Pf Inj) 1 mg Q3H PRN IV BREAKTHROUGH PAIN Last administered on 07/24/16 07:43; Start 07/21/16 at 12:00 Hydromorphone HCl (Dilaudid) 1 mg Q4H PRN PO PAIN SCALE 3 TO 5; Start 07/21/16 at 12:00 Hydromorphone HCl (Dilaudid) 2 mg Q4H PRN PO PAIN SCALE 6 TO 10 Last administered on 07/24/16 06:15; Start 07/21/16 at 12:00 Naloxone HCl (Narcan Inj) 0.4 mg UNSCH PRN IV SEE LABEL COMMENTS; Start at 12:00 Albuterol Sulfate (*ALBUTEROL NEB PERIprocedure ONLY) 2.5 mg STK-MED ONCE NEB Last administered on 07/21/16 12:08; Start 07/21/16 at 12:08; Stop 07/21/16 at 12:09; Status DC Miscellaneous Information ALL NURSING DEPARTME... UNSCH PRN .XX SEE LABEL COMMENTS; Start 07/21/16 at 12:45; Stop 07/22/16 at 12:44; Status DC Ceftriaxone Sodium/Sodium Chloride (Rocephin Inj/NS Inj) 100 ml @ 200 mls/hr Q24H IV Last administered on 07/23/16 19:40; Start 07/22/16 at 16:00 Acetaminophen (Tylenol) 650 mg Q6HR PRN PO for headach, pain 1-10,T> 101F; Start 07/23/16 at 18:00 Past, Family & Social History Past Medical History HEENT: REPORTS HX OF: Cataracts Endocrine: REPORTS HX OF: Diabetes mellitus (diabetic control) Cardiovascular: REPORTS HX OF: Hyperlipidemia, Hypertension Genitourinary: REPORTS HX OF: Hemodialysis, Kidney failure (stage 5) Infectious disease: REPORTS HX OF: Chickenpox (as a child), Measles (as a child ), Mumps (as a child) Neurologic: REPORTS HX OF: Peripheral neuropathy Disabilities: REPORTS HX OF: Vision deficit (reading glasses) Past Surgical History HEENT: REPORTS HX OF: Cataract extraction Gastrointestinal: REPORTS HX OF: Colectomy, total Genitourinary: REPORTS HX OF: Other surgery Family Medical History Patient History: Unknown G8 FATHER G8 MOTHER Substance Use Substance use: Denies use Review of Systems Notes No changes in his 14 point review of systems exam since yesterday Wound Assessment Vascular Assessment R Dorsails Pedis: Palpable L Dorsails Pedis: Palpable R Posterior Tibial: Palpable L Posterior Tibial: Palpable Wound Information - Wound One Converted the surgical wound Wound Location: Right plantar foot of first metatarsal Wound Type: Diabetic Ulcer Classification: Bone/Tendon Present Exudate: Low Exudate Type: Serosanguineous Debridement: No Fibrin Amount: Mild Granulation Tissue Color: [place] Granulation Tissue Texture: Spongy Eschar: No Odor: No Periwound Appearance: FINDINGS: Normal, Maceration Dressing Notes: VAC sponge and unit Wound Two Converted this surgical amputation site Wound Location: Right lateral Great toe Wound Three Converted the surgical amputation site Wound Location: Right medial great toe Lab and Radiology Results Radiology Last Impressions Foot X-Ray 07/21/16 0000 Signed Impressions: Service Date/Time: Thursday, July 21, 2016 12:06 - CONCLUSION: Postsurgical changes are noted. There is soft tissue emphysema present and soft tissue ulceration at the level of the first digit stump. This is presumably related to recent surgery. Harvinder Cisse MD Aorta w/Runoff CTA 07/20/16 0000 Signed Impressions: Service Date/Time: Wednesday, July 20, 2016 17:56 - CONCLUSION: Negative CT angiography of the aorta and lower extremities. Yoan Villegas MD Tumor Localization 07/18/16 0000 Signed Impressions: Service Date/Time: Monday, July 18, 2016 13:46 - CONCLUSION: There is osteomyelitis involving the right first interphalangeal joint. Octavia Hale MD Chest X-Ray 07/17/162008 Signed Impressions: Service Date/Time: Sunday, July 17, 2016 20:30 - CONCLUSION: No acute disease. Tacos Downs MD Assessment/Plan Problem List: (1) Chronic renal failure Status: Chronic (2) Ulcer of right foot with fat layer exposed Status: Resolved (3) Diabetes mellitus type 2, diet-controlled Status: Chronic (4) Peripheral neuropathy Status: Chronic (5) End stage renal disease on dialysis Status: Chronic (6) Neuropathic diabetic ulcer of foot Status: Chronic (7) Osteomyelitis of toe of right foot Status: Resolved (8) Diabetic foot ulcer Status: Acute Plan: Now open amputation site of the right hallux Additional Plans & Procedures PLAN: Negative pressure wound therapy VAC was applied to the open amputation site and set at 125 mm continuous. VAC to be changed on and Sundays. Once patient receives home VAC unit he can be discharged home with home health and I will follow him in the wound center. Problem Qualifiers (1) Chronic renal failure: Qualified Code: N18.4 - Chronic renal failure, stage 4 (severe) (2) Peripheral neuropathy: Qualified Code: G63 - Polyneuropathy associated with underlying disease (3) Diabetic foot ulcer: Qualified Code: E11.621 - Diabetic ulcer of toe of right foot associated with type 2 diabetes mellitus, with necrosis of bone Tacos Cruz DPM July 24, 2016 12:57
--- NOTE | 2016-07-24 14:59 | HHI.NPPN ---
Subjective General Problems: Anemia, Edema, Hypertension Renal Failure: End Stage Renal Disease History of Present Illness 56-year-old male known to me from before with past medical history of hypertension, diabetes mellitus, morbid obesity, history of end-stage renal disease on hemodialysis who came to the hospital with a complaint of right big toe infection and possibility of rule out osteomyelitis. I was called to see the patient for management of hemodialysis. He has been on hemodialysis Saturday, Saturday and Saturday. Additional Remarks Patient is alert, no SOB, has mild pain in Rt. foot, eating well. Review of Systems General Constitutional: Fatigue Cardiovascular Cardiac: Edema, KUMAR Objective Data Data 07/23/16 07/24/16 19:00 07:00 Intake Total 120 ml 584 ml Output Total 3000 ml Balance -2880 ml 584 ml Intake Oral 120 ml 480 ml IV Total 104 ml Output Urine Total 0 ml Hemodialysis 3000 ml # Voids 0 # Bowel Movements 2 0 Vital Signs Date Time Temp Pulse Resp B/P Pulse Ox O2 Delivery O2 Flow Rate FiO2 07/24/16 11:29 95 21 07/24/16 08:35 78 07/24/16 08:00 Room Air 07/24/16 08:00 98.2 82 20 106/72 95 07/24/16 04:00 98.3 85 16 115/58 96 07/24/16 00:00 98.6 76 18 98/54 94 07/23/16 21:04 84 07/23/16 20:45 Room Air 07/23/16 20:00 98.3 82 20 105/56 96 07/23/16 19:44 96 21 07/23/16 16:00 98.5 83 16 109/59 95 -: 07/22/16 0724 07/22/16 0724 Physical Exam General Appearance: No Acute Distress, Comfortable Eyes Eye Exam: Pupils Equal Throat Throat Exam: Oral Mucosa [place] & Moist Pulmonary Resp Exam: Clear Bilaterally, Breath Sounds Equal, No Distress, Decreased Bases Cardiology CV Exam: Regular, Normal Sinus Rhythm Gastrointestinal/Abdomen GI Exam: Soft, Non-Tender, Bowel Sounds Present, Distended Extremeties Extremities Exam: Trace Edema Neurologic Neuro Exam: Alert, Awake, Oriented Psychiatric Psych Exam: Appropriate Responses Assessment/Plan Assessment Summary: Hypertension, End Stage Renal Disease Problem List: (1) Diabetic foot ulcer (2) Peripheral neuropathy (3) Diabetes mellitus type 2, diet-controlled (4) Ulcer of right foot with fat layer exposed (5) Anemia (6) Hypertension (7) End stage renal disease on dialysis Plan Has Rt. Hallux amputation. CTA results noted, and vascular follow up seen. No vascular stenosis as per CTA. Plan as per Podiatry. HD will be in AM, Epogen with HD. Problem Qualifiers (1) Diabetic foot ulcer: Qualified Code: E11.621 - Diabetic ulcer of toe of right foot associated with type 2 diabetes mellitus, with necrosis of bone (2) Peripheral neuropathy: Qualified Code: G63 - Polyneuropathy associated with underlying disease (3) Hypertension: Qualified Code: I10 - Essential hypertension Anatoliy Putnam MD July 24, 2016 14:59 Qualified Code: I10 - Essential hypertension Anatoliy Putnam MD July 24, 2016 14:59
[2016-07-24] MEDS ORDERED: ACETAMINOPHEN/HYDROcodone 325 MG/5 MG TAB PO PRN (15:00)
[2016-07-24] MEDS: ACETAMINOPHEN/HYDROcodone 325 MG/5 MG TAB PO PRN ×2 (15:25→20:24)
[2016-07-24] MEDS: cefTRIAXone INJ 1,000 MG in SODIUM CHLORIDE 0.9% INJ 100 ML IV SCH (15:25)
[2016-07-24] MEDS: ATORVASTATIN 40 MG TAB PO SCH (20:23)
[2016-07-25] VITALS (8 sets, daily range): BP systolic 92–155; BP diastolic 50–90; PULSE 77–92; RESP 18–20; TEMP 97.5–98.7; O2SAT 93–99
--- NOTE | 2016-07-25 08:08 | HHI.PR ---
Subjective Remarks resting comfortably with no distress. pain is controlled. nausea has resolved. no fever. no new complaints. Objective Vitals Vital Signs Date Time Temp Pulse Resp B/P Pulse Ox O2 Delivery O2 Flow Rate FiO2 07/25/16 04:00 97.5 82 20 134/63 93 07/25/16 00:00 97.6 77 20 92/50 96 07/24/16 20:15 Room Air 07/24/16 20:00 97.6 84 20 133/68 93 07/24/16 20:00 75 07/24/16 17:38 94 21 07/24/16 16:00 97.8 82 20 107/56 94 07/24/16 12:00 97.5 78 20 118/71 94 07/24/16 11:29 95 21 07/24/16 08:35 78 I/O 07/24/16 07/24/16 07/24/16 07/25/16 07/25/16 07/25/16 07:00 15:00 23:00 07:00 15:00 23:00 Intake Total 242 ml 0 ml 326 ml 280 ml Output Total 250 ml 450 ml Balance 242 ml 0 ml 76 ml -170 ml Intake Oral 240 ml 0 ml 220 ml 280 ml IV Total 2 ml 106 ml Output Urine Total 250 ml 450 ml # Voids 0 2 # Bowel Movements 0 0 1 0 Result Diagram: 07/22/1624 07/22/1624 Imaging Last Impressions Foot X-Ray 07/21/16 Signed Impressions: Service Date/Time: Thursday, July 21, 2016 12:06 - CONCLUSION: Postsurgical changes are noted. There is soft tissue emphysema present and soft tissue ulceration at the level of the first digit stump. This is presumably related to recent surgery. Harvinder Cisse MD Aorta w/Runoff CTA 07/20/16 0000 Signed Impressions: Service Date/Time: Wednesday, July 20, 2016 17:56 - CONCLUSION: Negative CT angiography of the aorta and lower extremities. Yoan Villegas MD Tumor Localization 07/18/16 0000 Signed Impressions: Service Date/Time: Monday, July 18, 2016 13:46 - CONCLUSION: There is osteomyelitis involving the right first interphalangeal joint. Octavia Hale MD Chest X-Ray 07/17/162008 Signed Impressions: Service Date/Time: Sunday, July 17, 2016 20:30 - CONCLUSION: No acute disease. Tacos Downs MD Objective Remarks GENERAL: This is a well-nourished, well-developed patient, in no apparent distress. CARDIOVASCULAR: Regular rate and regular rhythm without murmurs, gallops, or rubs. RESPIRATORY: Clear to auscultation. Breath sounds equal bilaterally. No wheezes , rales, or rhonchi. GASTROINTESTINAL: Abdomen soft, non-tender, nondistended. Normal, active bowel sounds MUSCULOSKELETAL: right foot covered with clean dressing. NEURO: Alert & Oriented x4 to person, place, time, situation. Moves all ext x4 Procedures amputation of the right hallux. Medications and IVs Current Medications Vancomycin HCl 1000 mg/Sodium Chloride 250 ml @ 250 mls/hr ONCE ONCE IV Last administered on 07/17/16 22:14; Start 07/17/16 at 20:15; Stop 07/17/16 at 21:14 ; Status DC Piperacillin Sod/ Tazobactam Sod (Zosyn 3.375 Gm Premix) 50 ml @ 100 mls/hr ONCE ONCE IV Last administered on 07/17/16 22:14; Start 07/17/16 at 20:15; Stop 07/17/16 at 20:44; Status DC Ondansetron HCl (Zofran Inj) 4 mg ONCE ONCE IV Last administered on 07/17/16 22:14; Start 07/17/16 at 22:15; Stop 07/17/16 at 22:16; Status DC Ondansetron HCl (Zofran Inj) 4 mg STK-MED ONCE .ROUTE ; Start 07/17/16 at 22:12 ; Stop 07/17/16 at 22:13; Status DC Sodium Chloride (NS Flush) 2 ml UNSCH PRN IV FLUSH FLUSH AFTER USING IV ACCESS ; Start 07/17/16 at 23:00 Sodium Chloride (NS Flush) 2 ml BID IV FLUSH Last administered on 07/23/16 21: 11; Start 07/18/16 at 09:00 Ondansetron HCl (Zofran Inj) 4 mg Q6H PRN IVP NAUSEA OR VOMITING Last administered on 07/24/16 08:12; Start 07/17/16 at 23:00 Naloxone HCl 0.4 mg 0.4 mg UNSCH PRN IV SEE LABEL COMMENTS; Start 07/17/16 at 23:00; Stop 07/21/16 at 12:01; Status DC Piperacillin Sod/ Tazobactam Sod 100 ml @ 200 mls/hr Q6H IV ; Start 07/18/16 at 05:00; Status UNV Piperacillin Sod/ Tazobactam Sod (Zosyn 2.25 Gm Premix) 50 ml @ 100 mls/hr Q8H IV Last administered on 07/22/16 14:02; Start 07/18/16 at 05:00; Stop at 14:59; Status DC Aspirin (Ecotrin Ec) 81 mg DAILY PO Last administered on 07/24/16 07:42; Start 07/18/16 at 09:00 Atorvastatin Calcium (Lipitor) 40 mg HS PO Last administered on 07/24/16 20:23 ; Start 07/18/16 at 21:00 Carvedilol (Coreg) 3.125 mg HS PO Last administered on 07/21/16 20:14; Start 07/18/16 at 21:00; Stop 07/22/16 at 15:00; Status DC Gabapentin (Neurontin) 200 mg Q24H PO Last administered on 07/24/16 07:42; Start 07/18/16 at 09:00 Heparin Sodium (Porcine) 5000 units 5,000 units Q8HR SQ Last administered on 06:04; Start 07/18/16 at 14:00; Status Hold Sodium Chloride (NS 1000 ml Inj) 1,000 ml @ 0 mls/hr Q0M PRN IV For Prime & Rinse Back; Start 07/18/16 at 11:31 Heparin Sodium (Porcine) 8000 units 8,000 units UNSCH PRN IVF WITH DIALYSIS; Start 07/18/16 at 11:45 Sodium Chloride 1,000 ml @ 200 mls/hr Q5H PRN IV WITH DIALYSIS Last administered on 07/23/16 11:28; Start 07/18/16 at 11:31 Sodium Chloride (NS 1000 ml Inj) 1,000 ml @ 0 mls/hr Q0M PRN IV WITH DIALYSIS; Start 07/18/16 at 11:31 Mannitol (Mannitol Inj) 12.5 gm UNSCH PRN IV WITH DIALYSIS; Start 07/18/16 at 11:45 Albumin Human (Albumin 25% Inj) 25 gm UNSCH PRN IV WITH DIALYSIS; Start at 11:45 Sodium Chloride (NS Flush) 5 ml UNSCH PRN IV FLUSH WITH DIALYSIS; Start at 11:45 Heparin Sodium (Porcine) (Heparin Inj) UNSCH PRN .XX WITH DIALYSIS; Start at 11:45 Gentamicin Sulfate (Gentamicin (Dialysis) Inj) 20 mg UNSCH PRN IV WITH DIALYSIS ; Start 07/18/16 at 11:45 Ondansetron HCl (Zofran Inj) 4 mg UNSCH PRN IV WITH DIALYSIS; Start 07/18/16 at 11:45 Acetaminophen (Tylenol) 650 mg UNSCH PRN PO for headach, pain 1-10,T> 101F; Start 07/18/16 at 11:45; Stop 07/23/16 at 14:13; Status DC Diphenhydramine HCl (Benadryl) 25 mg UNSCH PRN PO for hives/itching/anaphylaxis ; Start 07/18/16 at 11:45 Nitroglycerin (Nitrostat Sl) 0.4 mg UNSCH PRN SL CHEST PAIN; Start 07/18/16 at 11:45 Clonidine (Catapres) 0.1 mg UNSCH PRN PO for BP > 180/100 X 2 readings; Start 07/18/16 at 11:45 Epoetin Chris (Epogen Inj) 6,000 units UNSCH PRN IV WITH DIALYSIS Last administered on 07/23/16 11:28; Start 07/18/16 at 11:45 Gelatin (Gelfoam 12 Mm/7 Mm Top) 1 foam UNSCH PRN TOP SEE LABEL COMMENTS Last administered on 07/23/16 11:28; Start 07/18/16 at 11:45 Iohexol (Omnipaque 350 Inj) 75 ml STK-MED ONCE IV Last administered on 18:11; Start 07/20/16 at 18:11; Stop 07/20/16 at 18:12; Status DC Fentanyl Citrate (fentaNYL INJ) 100 mcg STK-MED ONCE .ROUTE ; Start 07/21/16 at 10:58; Stop 07/21/16 at 10:59; Status DC Fentanyl Citrate (fentaNYL INJ) 250 mcg STK-MED ONCE .ROUTE ; Start 07/21/16 at 10:58; Stop 07/21/16 at 10:59; Status DC Bupivacaine HCl (Marcaine Pf 0.5% Inj) 30 ml STK-MED ONCE .ROUTE Last administered on 07/21/16 11:38; Start 07/21/16 at 11:04; Stop 07/21/16 at 11:05 ; Status DC Sodium Chloride (NS Flush) 2 ml UNSCH PRN IV FLUSH FLUSH AFTER USING IV ACCESS ; Start 07/21/16 at 12:00 Sodium Chloride (NS Flush) 2 ml BID IV FLUSH Last administered on 07/24/16 20: 23; Start 07/21/16 at 21:00 Miscellaneous Information (Post-op Orders (for Pharmacy)) STAT ONCE XX Last administered on 07/21/16 12:00; Start 07/21/16 at 12:00; Stop 07/21/16 at 12:06 ; Status DC Acetaminophen (Ofirmev Inj) 1,000 mg Q6H IV Last administered on 07/22/16 06: 58; Start 07/21/16 at 13:00; Stop 07/22/16 at 07:01; Status DC Hydromorphone HCl (Dilaudid Pf Inj) 1 mg Q3H PRN IV BREAKTHROUGH PAIN Last administered on 07/24/16 07:43; Start 07/21/16 at 12:00 Hydromorphone HCl (Dilaudid) 1 mg Q4H PRN PO PAIN SCALE 3 TO 5; Start 07/21/16 at 12:00; Stop 07/24/16 at 14:57; Status DC Hydromorphone HCl (Dilaudid) 2 mg Q4H PRN PO PAIN SCALE 6 TO 10 Last administered on 07/24/16 06:15; Start 07/21/16 at 12:00; Stop 07/24/16 at 14:57; Status DC Naloxone HCl (Narcan Inj) 0.4 mg UNSCH PRN IV SEE LABEL COMMENTS; Start at 12:00 Albuterol Sulfate (*ALBUTEROL NEB PERIprocedure ONLY) 2.5 mg STK-MED ONCE NEB Last administered on 07/21/16 12:08; Start 07/21/16 at 12:08; Stop 07/21/16 at 12:09; Status DC Miscellaneous Information ALL NURSING DEPARTME... UNSCH PRN .XX SEE LABEL COMMENTS; Start 07/21/16 at 12:45; Stop 07/22/16 at 12:44; Status DC Ceftriaxone Sodium/Sodium Chloride (Rocephin Inj/NS Inj) 100 ml @ 200 mls/hr Q24H IV Last administered on 07/24/16 15:25; Start 07/22/16 at 16:00 Acetaminophen (Tylenol) 650 mg Q6HR PRN PO for headach, pain 1-10,T> 101F; Start 07/23/16 at 18:00 Acetaminophen/ Hydrocodone Bitart ([place] 5-325 Mg) 1 tab Q4H PRN PO PAIN 3-5 Last administered on 07/25/16 05:09; Start 07/24/16 at 15:00 Acetaminophen/ Hydrocodone Bitart ([place] 5-325 Mg) 2 tab Q4H PRN PO PAIN 6-10 Last administered on 07/24/16 20:24; Start 07/24/16 at 15:00 A/P Assessment and Plan A/P (1) Osteomyelitis of toe of right foot Podiatry consulted,s/p amputation of the right hallux. vascular surgery evaluated and signed off. Wound cultures grew Proteus mirabilis. DC'ed IV zosyn and started Iv Rocephin. 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 Follow-up orthopedic surgery recommendations. The patient to get a wound VAC. switch to po antibiotic per . (2) Diabetic foot ulcer Plan: As above. (3) Peripheral neuropathy Plan: seems stable. Continue gabapentin. (4) End stage renal disease on dialysis Plan: On hemodialysis schedule on Mondays and Saturday. Continue hemodialysis per nephrology recommendations. (5) Diabetes mellitus type 2, diet-controlled Plan: Patient's last hemoglobin A1c in October 2015 was 5.6. Monitor Accu- Cheks and place on SSI with insulin NovoLog as needed. (6) Hypertension Plan: Blood presure very stable on previous days. hold antihypertensive medications. (7) Diarrhea Plan: Stool for C. difficile negative. Diarrhea resolved. Continue lactobacillus acidophilus. Assessment and Plan DVT prophylaxis: Hold heparin sub-tenderness for now due to bleeding from amputation site. Discharge Planning dc home today when HHC and wound vac has been arranged. f/u with pcp, podiatry and nephrology. HD per nephrology. see med list. d/w the patient and RN. previously d/w . time spent 35 min. Marjorie Bagley MD July 25, 2016 08:08
[2016-07-25] MEDS ORDERED: AUGM875T PO (08:09)
--- NOTE | 2016-07-25 08:10 | HHI.DS ---
Discharge Summary Admission Date Jul 17, 2016 at 22:43 Discharge Date: July 25, 2016 Admitting Diagnosis Right foot infection, failed out patient management, r/o osteomyelit (1) Osteomyelitis of toe of right foot ICD Code: M86.9 Diagnosis: Principal (2) Diabetic foot ulcer ICD Code: E11.621 Diagnosis: Principal (3) Peripheral neuropathy ICD Code: G62.9 Diagnosis: Secondary (4) End stage renal disease on dialysis ICD Code: N18.6 Diagnosis: Secondary (5) Hypertension ICD Code: I10 Diagnosis: Secondary (6) Diarrhea ICD Code: R19.7 Diagnosis: Secondary Procedures amputation of the right hallux. Brief History - From Admission History from patient, ER physician communication, and review of medical records. Patient reported that he came to the hospital because he was sent by his slumber room attendant Dr. Cruz. He states that only starting Saturday, both his doctor incidence of noted his right big toe to be swelling more than usual. He reports that he was seeing his slumber room attendant for calluses and a hole in his right plantar foot. He reports he was also on antibiotics for about 2 weeks. He thought that his right big toe itself was not infected much. Denies fever. However reports of chills. He is a diabetic. He reports a foul smelling discharge from this wound. He did have 1 times episode of diarrhea and vomiting last week. No blood in it. He denies any urinary symptoms. He is still making urine. He is end-stage renal disease patient on hemodialysis. CBC/BMP: 07/22/16 0724 07/22/16 0724 Imaging Last Impressions Foot X-Ray 07/21/16 0000 Signed Impressions: Service Date/Time: Thursday, July 21, 2016 12:06 - CONCLUSION: Postsurgical changes are noted. There is soft tissue emphysema present and soft tissue ulceration at the level of the first digit stump. This is presumably related to recent surgery. Harvinder Cisse MD Aorta w/Runoff CTA 07/20/16 0000 Signed Impressions: Service Date/Time: Wednesday, July 20, 2016 17:56 - CONCLUSION: Negative CT angiography of the aorta and lower extremities. Yoan Villegas MD Tumor Localization 07/18/16 0000 Signed Impressions: Service Date/Time: Monday, July 18, 2016 13:46 - CONCLUSION: There is osteomyelitis involving the right first interphalangeal joint. Octavia Hale MD Chest X-Ray 07/17/162008 Signed Impressions: Service Date/Time: Sunday, July 17, 2016 20:30 - CONCLUSION: No acute disease. Tacos Downs MD PE at Discharge GENERAL: This is a well-nourished, well-developed patient, in no apparent distress. CARDIOVASCULAR: Regular rate and regular rhythm without murmurs, gallops, or rubs. RESPIRATORY: Clear to auscultation. Breath sounds equal bilaterally. No wheezes , rales, or rhonchi. GASTROINTESTINAL: Abdomen soft, non-tender, nondistended. Normal, active bowel sounds MUSCULOSKELETAL: right foot covered with clean dressing. NEURO: Alert & Oriented x4 to person, place, time, situation. Moves all ext x4 Hospital Course (1) Osteomyelitis of toe of right foot Podiatry consulted,s/p amputation of the right hallux. vascular surgery evaluated and signed off. Wound cultures grew Proteus mirabilis. DC'ed IV zosyn and started Iv Rocephin. 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 Follow-up orthopedic surgery recommendations. The patient to get a wound VAC. switch to po antibiotic per . (2) Diabetic foot ulcer Plan: As above. (3) Peripheral neuropathy Plan: seems stable. Continue gabapentin. (4) End stage renal disease on dialysis Plan: On hemodialysis schedule on Mondays and Saturday. Continue hemodialysis per nephrology recommendations. (5) Diabetes mellitus type 2, diet-controlled Plan: Patient's last hemoglobin A1c in October 2015 was 5.6. Monitor Accu- Cheks and place on SSI with insulin NovoLog as needed. (6) Hypertension Plan: Blood presure very stable on previous days. hold antihypertensive medications. (7) Diarrhea Plan: Stool for C. difficile negative. Diarrhea resolved. Continue lactobacillus acidophilus. Assessment and Plan DVT prophylaxis: Hold heparin sub-tenderness for now due to bleeding from amputation site. Pt Condition on Discharge: Good Discharge Disposition: Disch w/ Home Health Serv Discharge Time: > 30 minutes Discharge Instructions DIET: Follow Instructions for: Diabetic Diet, Renal Failure Diet Activities you can perform: Regular-No Restrictions Follow up Referrals: Nephrology PCP Follow-up Podiatry Vascular Surgery New Medications: Hydrocodone-Acetaminophen ([place]) 7.5-325 mg Tab 1 TAB PO Q4H PRN PAIN #28 Ref 0 TAB Levofloxacin (Levaquin) 500 Mg Tab 500 MG PO Q48H Infection Days 14 Ref 0 TAB Continued Medications: Aspirin DR (Ecotrin Low Strength) 81 Mg Tabdr 81 MG PO DAILY #30 Ref 0 TAB Atorvastatin (Lipitor) 40 Mg Tab 40 MG PO HS Cholesterol Management #30 Ref 0 TAB Calcium Acetate (Calcium Acetate) 668 Mg Tab TID Gabapentin (Gabapentin) 100 Mg Cap 200 MG PO BID #60 Ref 0 CAP Discontinued Medications: Carvedilol (Carvedilol) 3.125 Mg Tab 3.125 MG PO HS #60 Ref 0 TAB Doxycycline Hyclate (Doxycycline Hyclate) 100 Mg Cap 100 MG PO BID Infection #20 Ref 0 CAP Marjorie Bagley MD July 25, 2016 08:10
[2016-07-25] MEDS ORDERED: LEVA500T PO (08:26)
[2016-07-25] MEDS: SODIUM CHLORIDE 0.9% FLUSH 10 ML FLUSH IV FLUSH SCH ×4 (08:30→21:18)
--- NOTE | 2016-07-25 11:07 | HHI.NPPN ---
Subjective General Problems: Anemia, Edema, Hypertension Renal Failure: End Stage Renal Disease History of Present Illness 56-year-old male known to me from before with past medical history of hypertension, diabetes mellitus, morbid obesity, history of end-stage renal disease on hemodialysis who came to the hospital with a complaint of right big toe infection and possibility of rule out osteomyelitis. I was called to see the patient for management of hemodialysis. He has been on hemodialysis Saturday, Saturday and Saturday. Additional Remarks Patient is alert, seen during HD, pain in Rt. foot is better. Review of Systems General Constitutional: Fatigue Cardiovascular Cardiac: Edema, KUMAR Objective Data Data 07/24/16 07/25/16 19:00 07:00 Intake Total 0 ml 606 ml Output Total 700 ml Balance 0 ml -94 ml Intake Oral 0 ml 500 ml IV Total 106 ml Output Urine Total 700 ml # Voids 2 # Bowel Movements 0 1 Vital Signs Date Time Temp Pulse Resp B/P Pulse Ox O2 Delivery O2 Flow Rate FiO2 07/25/16 08:15 Room Air 07/25/16 08:00 97.8 81 20 149/70 94 07/25/16 07:58 80 07/25/16 04:00 97.5 82 20 134/63 93 07/25/16 00:00 97.6 77 20 92/50 96 07/24/16 20:15 Room Air 07/24/16 20:00 97.6 84 20 133/68 93 07/24/16 20:00 75 07/24/16 17:38 94 21 07/24/16 16:00 97.8 82 20 107/56 94 07/24/16 12:00 97.5 78 20 118/71 94 07/24/16 11:29 95 21 -: 07/22/16 0724 07/22/16 0724 Physical Exam General Appearance: No Acute Distress, Comfortable Eyes Eye Exam: Pupils Equal Throat Throat Exam: Oral Mucosa [place] & Moist Pulmonary Resp Exam: Clear Bilaterally, Breath Sounds Equal, No Distress, Decreased Bases Cardiology CV Exam: Regular, Normal Sinus Rhythm Gastrointestinal/Abdomen GI Exam: Soft, Non-Tender, Bowel Sounds Present, Distended Extremeties Extremities Exam: Trace Edema Neurologic Neuro Exam: Alert, Awake, Oriented Psychiatric Psych Exam: Appropriate Responses Assessment/Plan Assessment Summary: Hypertension, End Stage Renal Disease Problem List: (1) Diabetic foot ulcer (2) Peripheral neuropathy (3) Diabetes mellitus type 2, diet-controlled (4) Ulcer of right foot with fat layer exposed (5) Anemia (6) Hypertension (7) End stage renal disease on dialysis Plan Has Rt. Hallux amputation. CTA results noted, and vascular follow up seen. No vascular stenosis as per CTA. HD now, remove fluid as tolerated. Possible D/C home with home health care and PO antibiotics. Problem Qualifiers (1) Diabetic foot ulcer: Qualified Code: E11.621 - Diabetic ulcer of toe of right foot associated with type 2 diabetes mellitus, with necrosis of bone (2) Peripheral neuropathy: Qualified Code: G63 - Polyneuropathy associated with underlying disease (3) Hypertension: Qualified Code: I10 - Essential hypertension Anatoliy Putnam MD July 25, 2016 11:07
[2016-07-25] MEDS: EPOETIN ALFA 10,000 UNITS/ML VIAL IV PRN (11:59)
[2016-07-25] MEDS: GABAPENTIN 100 MG CAP PO SCH (12:47)
[2016-07-25] MEDS: ASPIRIN EC 81 MG TABEC PO SCH (12:48)
--- NOTE | 2016-07-25 12:48 | PD.POD ---
Subjective Podiatric Problems Follow-up the patient with end-stage renal failure on hemodialysis with open amputation of the right hallux. Pain scale used: 0-10 numeric scale Pain score: 2 Remarks 56-year-old male with neuropathy and end-stage renal disease presented with osteomyelitis of the right hallux. He underwent open amputation of the right hallux. Yesterday a negative pressure wound VAC was applied. Appears to be riding well. Past Med/Surg/Social History Past Medical History HEENT: REPORTS HX OF: Cataracts Endocrine: REPORTS HX OF: Diabetes mellitus (diabetic control) Cardiovascular: REPORTS HX OF: Hyperlipidemia, Hypertension Genitourinary: REPORTS HX OF: Hemodialysis, Kidney failure (stage 5) Infectious disease: REPORTS HX OF: Chickenpox (as a child), Measles (as a child ), Mumps (as a child) Neurologic: REPORTS HX OF: Peripheral neuropathy Disabilities: REPORTS HX OF: Vision deficit (reading glasses) Past Surgical History HEENT: REPORTS HX OF: Cataract extraction Gastrointestinal: REPORTS HX OF: Colectomy, total Genitourinary: REPORTS HX OF: Other surgery Social History Smoking Status: Never Smoker Review of Systems Notes Or changes in his 14 point review of systems exam from the previous visit Objective Vital Signs Vital Signs Date Time Temp Pulse Resp B/P Pulse Ox O2 Delivery O2 Flow Rate FiO2 07/25/16 11:09 95 21 07/25/16 08:15 Room Air 07/25/16 08:00 97.8 81 20 149/70 94 07/25/16 07:58 80 07/25/16 04:00 97.5 82 20 134/63 93 07/25/16 00:00 97.6 77 20 92/50 96 07/24/16 20:15 Room Air 07/24/16 20:00 97.6 84 20 133/68 93 07/24/16 20:00 75 07/24/16 17:38 94 21 07/24/16 16:00 97.8 82 20 107/56 94 Coded Allergies: Metoprolol (Verified Allergy, Severe, Blurred Vision, lightheadedness, nausea, 07/17/16) Norvasc (Verified Allergy, Severe, Blurred Vision, lightheaded, nausea, ) *MDRO Multi-Drug Resistant Organism (Verified Adverse Reaction, Unknown, ) MRSA (wounds) - 2005; (foot) - 12/22/15, 01/12/16, 05/01/16, 07/03/16 Medications and IVs Current Medications Vancomycin HCl 1000 mg/Sodium Chloride 250 ml @ 250 mls/hr ONCE ONCE IV Last administered on 07/17/16 22:14; Start 07/17/16 at 20:15; Stop 07/17/16 at 21:14 ; Status DC Piperacillin Sod/ Tazobactam Sod (Zosyn 3.375 Gm Premix) 50 ml @ 100 mls/hr ONCE ONCE IV Last administered on 07/17/16 22:14; Start 07/17/16 at 20:15; Stop 07/17/16 at 20:44; Status DC Ondansetron HCl (Zofran Inj) 4 mg ONCE ONCE IV Last administered on 07/17/16 22:14; Start 07/17/16 at 22:15; Stop 07/17/16 at 22:16; Status DC Ondansetron HCl (Zofran Inj) 4 mg STK-MED ONCE .ROUTE ; Start 07/17/16 at 22:12 ; Stop 07/17/16 at 22:13; Status DC Sodium Chloride (NS Flush) 2 ml UNSCH PRN IV FLUSH FLUSH AFTER USING IV ACCESS ; Start 07/17/16 at 23:00 Sodium Chloride (NS Flush) 2 ml BID IV FLUSH Last administered on 07/25/16 08: 30; Start 07/18/16 at 09:00 Ondansetron HCl (Zofran Inj) 4 mg Q6H PRN IVP NAUSEA OR VOMITING Last administered on 07/24/16 08:12; Start 07/17/16 at 23:00 Naloxone HCl 0.4 mg 0.4 mg UNSCH PRN IV SEE LABEL COMMENTS; Start 07/17/16 at 23:00; Stop 07/21/16 at 12:01; Status DC Piperacillin Sod/ Tazobactam Sod 100 ml @ 200 mls/hr Q6H IV ; Start 07/18/16 at 05:00; Status UNV Piperacillin Sod/ Tazobactam Sod (Zosyn 2.25 Gm Premix) 50 ml @ 100 mls/hr Q8H IV Last administered on 07/22/16 14:02; Start 07/18/16 at 05:00; Stop at 14:59; Status DC Aspirin (Ecotrin Ec) 81 mg DAILY PO Last administered on 07/24/16 07:42; Start 07/18/16 at 09:00 Atorvastatin Calcium (Lipitor) 40 mg HS PO Last administered on 07/24/16 20:23 ; Start 07/18/16 at 21:00 Carvedilol (Coreg) 3.125 mg HS PO Last administered on 07/21/16 20:14; Start 07/18/16 at 21:00; Stop 07/22/16 at 15:00; Status DC Gabapentin (Neurontin) 200 mg Q24H PO Last administered on 07/24/16 07:42; Start 07/18/16 at 09:00 Heparin Sodium (Porcine) 5000 units 5,000 units Q8HR SQ Last administered on 06:04; Start 07/18/16 at 14:00; Status Hold Sodium Chloride (NS 1000 ml Inj) 1,000 ml @ 0 mls/hr Q0M PRN IV For Prime & Rinse Back; Start 07/18/16 at 11:31 Heparin Sodium (Porcine) 8000 units 8,000 units UNSCH PRN IVF WITH DIALYSIS; Start 07/18/16 at 11:45 Sodium Chloride 1,000 ml @ 200 mls/hr Q5H PRN IV WITH DIALYSIS Last administered on 07/23/16 11:28; Start 07/18/16 at 11:31 Sodium Chloride (NS 1000 ml Inj) 1,000 ml @ 0 mls/hr Q0M PRN IV WITH DIALYSIS; Start 07/18/16 at 11:31 Mannitol (Mannitol Inj) 12.5 gm UNSCH PRN IV WITH DIALYSIS; Start 07/18/16 at 11:45 Albumin Human (Albumin 25% Inj) 25 gm UNSCH PRN IV WITH DIALYSIS; Start at 11:45 Sodium Chloride (NS Flush) 5 ml UNSCH PRN IV FLUSH WITH DIALYSIS; Start at 11:45 Heparin Sodium (Porcine) (Heparin Inj) UNSCH PRN .XX WITH DIALYSIS; Start at 11:45 Gentamicin Sulfate (Gentamicin (Dialysis) Inj) 20 mg UNSCH PRN IV WITH DIALYSIS ; Start 07/18/16 at 11:45 Ondansetron HCl (Zofran Inj) 4 mg UNSCH PRN IV WITH DIALYSIS; Start 07/18/16 at 11:45 Acetaminophen (Tylenol) 650 mg UNSCH PRN PO for headach, pain 1-10,T> 101F; Start 07/18/16 at 11:45; Stop 07/23/16 at 14:13; Status DC Diphenhydramine HCl (Benadryl) 25 mg UNSCH PRN PO for hives/itching/anaphylaxis ; Start 07/18/16 at 11:45 Nitroglycerin (Nitrostat Sl) 0.4 mg UNSCH PRN SL CHEST PAIN; Start 07/18/16 at 11:45 Clonidine (Catapres) 0.1 mg UNSCH PRN PO for BP > 180/100 X 2 readings; Start 07/18/16 at 11:45 Epoetin Chris (Epogen Inj) 6,000 units UNSCH PRN IV WITH DIALYSIS Last administered on 07/25/16 11:59; Start 07/18/16 at 11:45 Gelatin (Gelfoam 12 Mm/7 Mm Top) 1 foam UNSCH PRN TOP SEE LABEL COMMENTS Last administered on 07/23/16 11:28; Start 07/18/16 at 11:45 Iohexol (Omnipaque 350 Inj) 75 ml STK-MED ONCE IV Last administered on 18:11; Start 07/20/16 at 18:11; Stop 07/20/16 at 18:12; Status DC Fentanyl Citrate (fentaNYL INJ) 100 mcg STK-MED ONCE .ROUTE ; Start 07/21/16 at 10:58; Stop 07/21/16 at 10:59; Status DC Fentanyl Citrate (fentaNYL INJ) 250 mcg STK-MED ONCE .ROUTE ; Start 07/21/16 at 10:58; Stop 07/21/16 at 10:59; Status DC Bupivacaine HCl (Marcaine Pf 0.5% Inj) 30 ml STK-MED ONCE .ROUTE Last administered on 07/21/16 11:38; Start 07/21/16 at 11:04; Stop 07/21/16 at 11:05 ; Status DC Sodium Chloride (NS Flush) 2 ml UNSCH PRN IV FLUSH FLUSH AFTER USING IV ACCESS ; Start 07/21/16 at 12:00 Sodium Chloride (NS Flush) 2 ml BID IV FLUSH Last administered on 07/25/16 08: 30; Start 07/21/16 at 21:00 Miscellaneous Information (Post-op Orders (for Pharmacy)) STAT ONCE XX Last administered on 07/21/16 12:00; Start 07/21/16 at 12:00; Stop 07/21/16 at 12:06 ; Status DC Acetaminophen (Ofirmev Inj) 1,000 mg Q6H IV Last administered on 07/22/16 06: 58; Start 07/21/16 at 13:00; Stop 07/22/16 at 07:01; Status DC Hydromorphone HCl (Dilaudid Pf Inj) 1 mg Q3H PRN IV BREAKTHROUGH PAIN Last administered on 07/24/16 07:43; Start 07/21/16 at 12:00 Hydromorphone HCl (Dilaudid) 1 mg Q4H PRN PO PAIN SCALE 3 TO 5; Start 07/21/16 at 12:00; Stop 07/24/16 at 14:57; Status DC Hydromorphone HCl (Dilaudid) 2 mg Q4H PRN PO PAIN SCALE 6 TO 10 Last administered on 07/24/16 06:15; Start 07/21/16 at 12:00; Stop 07/24/16 at 14:57; Status DC Naloxone HCl (Narcan Inj) 0.4 mg UNSCH PRN IV SEE LABEL COMMENTS; Start at 12:00 Albuterol Sulfate (*ALBUTEROL NEB PERIprocedure ONLY) 2.5 mg STK-MED ONCE NEB Last administered on 07/21/16 12:08; Start 07/21/16 at 12:08; Stop 07/21/16 at 12:09; Status DC Miscellaneous Information ALL NURSING DEPARTME... UNSCH PRN .XX SEE LABEL COMMENTS; Start 07/21/16 at 12:45; Stop 07/22/16 at 12:44; Status DC Ceftriaxone Sodium/Sodium Chloride (Rocephin Inj/NS Inj) 100 ml @ 200 mls/hr Q24H IV Last administered on 07/24/16 15:25; Start 07/22/16 at 16:00 Acetaminophen (Tylenol) 650 mg Q6HR PRN PO for headach, pain 1-10,T> 101F; Start 07/23/16 at 18:00 Acetaminophen/ Hydrocodone Bitart ([place] 5-325 Mg) 1 tab Q4H PRN PO PAIN 3-5 Last administered on 07/25/16 05:09; Start 07/24/16 at 15:00 Acetaminophen/ Hydrocodone Bitart ([place] 5-325 Mg) 2 tab Q4H PRN PO PAIN 6-10 Last administered on 07/24/16 20:24; Start 07/24/16 at 15:00 Exam-Podiatry Constitutional General appearance: comfortable Nutritional status: overweight Orientation: alert and oriented x3 Dermatological Exam Other: Scars, Surgery,Injury Open amputation site right hallux is negative pressure wound VAC therapy attached and running well. Vascular/Lymphatic Exam R Dorsails Pedis: Palpable L Dorsails Pedis: Palpable R Posterior Tibial: Palpable L Posterior Tibial: Palpable Neurologic Exam Present on right: Burning, Paraesthesia Present on left: Tingling, Paraesthesia Assessment & Plan Diagnosis: (1) Diabetic foot ulcer Status: Acute (2) Peripheral neuropathy Status: Chronic (3) End stage renal disease on dialysis Status: Chronic A/P PLAN: 1 surgery received the portable freedom VAC unit. Patient can be discharged home. Home nursing to be arranged by case management for dressing changes. Follow up with me in the wound center. Problem Qualifiers (1) Diabetic foot ulcer: Qualified Code: E11.621 - Diabetic ulcer of toe of right foot associated with type 2 diabetes mellitus, with necrosis of bone (2) Peripheral neuropathy: Qualified Code: G63 - Polyneuropathy associated with underlying disease Tacos Cruz DPM July 25, 2016 12:48
[2016-07-25] MEDS: ACETAMINOPHEN/HYDROcodone 325 MG/5 MG TAB PO PRN ×2 (12:56→21:19)
[2016-07-25] MEDS: cefTRIAXone INJ 1,000 MG in SODIUM CHLORIDE 0.9% INJ 100 ML IV SCH (16:20)
[2016-07-25] MEDS: ATORVASTATIN 40 MG TAB PO SCH (21:18)
[2016-07-26] VITALS: BP 125/69; PULSE 87; RESP 18; TEMP 98.6; O2SAT 96
[2016-07-26 04:39] VITALS: BP 141/68; PULSE 93; RESP 20; TEMP 97.8; O2SAT 93
[2016-09-04] MEDS ORDERED: VITA250T3 PO (14:02)
[2016-09-04] MEDS ORDERED: ZINC220T PO (14:02)
[2016-09-04] MEDS ORDERED: MULT1TAB46 (14:02)
[2016-09-04] MEDS ORDERED: CALC667C (14:02)
[2016-09-04] MEDS ORDERED: FERR325T2 (14:02)
[2016-09-18] MEDS ORDERED: VANC1000P IV (14:28)
== END 2016-07-26 08:45 | disposition home or self-care (01) | DRG 617 ==
LOC: NEPE 18:16 → NEDA 22:43 → N04A 23:56
PROVIDERS: ADMIT Internal Medicine; ATTEND Internal Medicine
PROC: 5A1D60Z (ICD-10-PCS; 2016-07-18)
PROC: 0Y6P0Z3 Detachment at Right 1st Toe, Low, Open Approach (ICD-10-PCS; principal; 2016-07-21 11:11)
DX: E11.69 Type 2 diabetes mellitus with other specified complication (principal); M86.171 Other acute osteomyelitis, right ankle and foot; E11.22 Type 2 diabetes mellitus with diabetic chronic kidney disease; K31.84 Gastroparesis; I12.0 Hypertensive chronic kidney disease with stage 5 chronic kidney disease or end stage renal disease; N18.6 End stage renal disease; E11.43 Type 2 diabetes mellitus with diabetic autonomic (poly)neuropathy; L97.419 Non-pressure chronic ulcer of right heel and midfoot with unspecified severity; Z68.42 Body mass index [BMI] 45.0-49.9, adult; E11.621 Type 2 diabetes mellitus with foot ulcer; L97.513 Non-pressure chronic ulcer of other part of right foot with necrosis of muscle; B96.5 Pseudomonas (aeruginosa) (mallei) (pseudomallei) as the cause of diseases classified elsewhere; E66.01 Morbid (severe) obesity due to excess calories; R19.7 Diarrhea, unspecified; D64.9 Anemia, unspecified; Z99.2 Dependence on renal dialysis; B95.62 Methicillin resistant Staphylococcus aureus infection as the cause of diseases classified elsewhere; E11.42 Type 2 diabetes mellitus with diabetic polyneuropathy; E78.5 Hyperlipidemia, unspecified
CPT/HCPCS: 71010; 73630; 75635; 76937; 78807; 78999; 80048; 80053; 82948; 83036; 85025; 85027; 85610; 85652; 85730; 86140; 87040; 87070; 87077; 87186; 87205; 87493; 88304; 88305; 88311; 90935; 93005; 93922; 94664; 96365; 96368; 96374; 96375; 99212; A9569; G0463; J0131; J0696; J1170; J1644; J2370; J2405; J2543; J3010; J3370; J7030; J7050; J7613; L3260; Q4081; Q9967

== ENCOUNTER 2017-03-15 08:59 | Inpatient (IN) | payer MEDICARE ==
[~2017-03-15] VITALS: Ht 165.1 cm; Wt 120.9 kg
[~2017-03-15 08:59] MED LIST changes: -CALC668T; -CARV12.52 PO; -DOXY100C PO; +GABA100C4 PO; -ISOS20TA PO; -LIPI40TA PO; +MULT1TAB46; -NEUR300C PO; -PRIL10CA PO; -PROT40TA PO; -REGL10TA5 PO
[2017-03-15 09:04] VITALS: BP 162/70; PULSE 87; RESP 16; TEMP 98.5; O2SAT 96
--- NOTE | 2017-03-15 09:28 | PD ---
HPI Chief Complaint: Wound/Suture/Staple Re-Check Time Seen by Provider: 09:09 Travel History International Travel<30 days: No Contact w/Intl Traveler<30days: No Traveled to known affect area: No History of Present Illness HPI 56-year-old male history of diabetes and toe amputation presents to emergency department concerned about an open wound on his right second toe. States he noticed this wound this morning after stepping out of the shower. Patient states he does not have significant pain but says he has had a history of a toe amputation is concerned about an infection. Patient states that he has been changing his socks frequently throughout the day and trying to perform foot checks. Patient follows Dr. Cruz and his last follow-up was in January. Patient states that he had his first toe amputated because of infectious process. Patient denies fever or chills. Patient denies fever, chills, nausea , vomiting or diarrhea. Denies urinary symptoms. Really has no other complaints today. PFSH Past Medical History Heart Rhythm Problems: No Cancer: No Cardiovascular Problems: Yes High Cholesterol: Yes Chest Pain: No Congestive Heart Failure: No Diabetes: Yes Patient Takes Glucophage: No Dialysis: Yes (HEMO M,W,F) Diminished Hearing: No Endocrine: No Gastrointestinal Disorders: Yes (Hep C) Genitourinary: Yes (ESRD) Hepatitis: No Hiatal Hernia: No Hypertension: Yes Immune Disorder: No Implanted Vascular Access Dvce: No Medical other: Yes (diabetic neuropathy) Musculoskeletal: No Neurologic: No Psychiatric: No Reproductive: No Respiratory: No Immunizations Current: Yes Renal Failure: Yes Thyroid Disease: No Past Surgical History Abdominal Surgery: No Arteriovenous Shunt: Yes (LEFT UPPER ARM,RT. ) Cardiac Surgery: No Endocrine Surgery: No Eye Surgery: No Genitourinary Surgery: No Gynecologic Surgery: No Oral Surgery: No Pacemaker: No Thoracic Surgery: No Other Surgery: Yes (LUE FISTULA INSERTION 09/2011) Social History Alcohol Use: No Tobacco Use: No Substance Use: No Allergies-Medications (Allergen,Severity, Reaction): Coded Allergies: amlodipine (Verified Allergy, Severe, Blurred Vision, lightheaded, nausea , 03/15/17) metoprolol (Verified Allergy, Severe, Blurred Vision, lightheadedness, nausea, 03/15/17) *MDRO Multi-Drug Resistant Organism (Verified Adverse Reaction, Unknown, 02/11/17) MRSA (wounds) - 2005; (foot) - 12/22/15, 01/12/16, 05/01/16, 07/03/16, 08/09/16, 09/04/16, 10/16/16 Reported Meds & Prescriptions Reported Meds & Active Scripts Active Reported Multi Vitamin Daily (Multiple Vitamin) 1 Tab Tab Gabapentin 100 Mg Cap 200 Mg PO BID Ecotrin Low Strength (Aspirin) 81 Mg Tabdr 81 Mg PO DAILY Review of Systems Except as stated in HPI: all other systems reviewed are Neg Physical Exam Narrative GENERAL: Well-developed well-nourished in no apparent distress SKIN: Focused skin assessment warm/dry. HEAD: Atraumatic. Normocephalic. EYES: Pupils equal and round. No scleral icterus. No injection or drainage. ENT: No nasal bleeding or discharge. Mucous membranes pink and moist. NECK: Trachea midline. No JVD. CARDIOVASCULAR: Regular rate and rhythm. No murmur appreciated. RESPIRATORY: No accessory muscle use. Clear to auscultation. Breath sounds equal bilaterally. MUSCULOSKELETAL: No obvious deformities. No clubbing. No cyanosis. No edema. Right second toe- partially avulsed calloused skin with nail involvement. Distal aspects macerated without obvious exudate. No significant bleeding. No significant edema or erythema to the area. Nontender Right First toe status post amputation NEUROLOGICAL: Awake and alert. No obvious cranial nerve deficits. Motor grossly within normal limits. Normal speech. PSYCHIATRIC: Appropriate mood and affect; insight and judgment normal. Data Data Last Documented VS Vital Signs Date Time Temp Pulse Resp B/P (MAP) Pulse Ox O2 Delivery O2 Flow Rate FiO2 03/15/17 13:30 99 21 03/15/17 09:04 98.5 87 16 162/70 (100) Orders Orders Foot, Limited (2vws) (03/15/17 ) Complete Blood Count With Diff (03/15/17 10:37) Comprehensive Metabolic Panel (03/15/17 10:37) Blood Culture (03/15/17 10:37) Magnesium (Mg) (03/15/17 10:37) Phosphorus (Po4) (03/15/17 10:37) Consult Nephrology (03/15/17 ) Consult Podiatry (03/15/17 ) Blood Flow Rate (03/15/17 13:23) Dialysate Flow Rate (03/15/17 13:23) Dialyzer (03/15/17 13:23) Concentrate (03/15/17 13:23) Acid Concentrate (03/15/17 13:23) Length Of Dialysis (03/15/17 13:23) Frequency Of Dialysis (03/15/17 13:23) Dialysis Obtain (03/15/17 13:23) Needle Size (03/15/17 13:23) Dialysis Schedule (03/15/17 13:23) Resp Oxygen Dave C Titrat 1-4 L (03/15/17 ) Dialysis Weight (03/15/17 13:23) ^ Obtain As Needed (03/15/17 13:23) Sodium Chlor 0.9% 1000 Ml Inj (Ns 1000 M (03/15/17 13:23) Heparin Inj (Heparin Inj) (03/15/17 13:30) Sodium Chlor 0.9% 1000 Ml Inj (Ns 1000 M (03/15/17 13:23) Sodium Chlor 0.9% 1000 Ml Inj (Ns 1000 M (03/15/17 13:23) Mannitol Inj (Mannitol Inj) (03/15/17 13:30) Albumin 25% Inj (Albumin 25% Inj) (03/15/17 13:30) Sodium Chloride 0.9% Flush (Ns Flush) (03/15/17 13:30) Heparin Inj (Heparin Inj) (03/15/17 13:30) Gentamicin (Dialysis) Inj (Gentamicin (D (03/15/17 13:30) Ondansetron Inj (Zofran Inj) (03/15/17 13:30) Acetaminophen (Tylenol) (03/15/17 13:30) Diphenhydramine (Benadryl) (03/15/17 13:30) Nitroglycerin Sl (Nitrostat Sl) (03/15/17 13:30) Clonidine (Catapres) (03/15/17 13:30) Epoetin Chris Inj (Epogen Inj) (03/15/17 13:30) Gelatin 12 Mm/7 Mm Top (Gelfoam 12 Mm/7 (03/15/17 13:30) Consult Infectious Disease (03/15/17 ) Admit Order (Ed Use Only) (03/15/17 14:00) Picc Line Insert,Power W Fl&Us (03/15/17 ) Labs Laboratory Tests Test 03/15/17 11:55 White Blood Count 9.2 TH/MM3 Red Blood Count 3.40 MIL/MM3 Hemoglobin 10.3 GM/DL Hematocrit 31.6 % Mean Corpuscular Volume 93.1 FL Mean Corpuscular Hemoglobin 30.2 PG Mean Corpuscular Hemoglobin Concent 32.4 % Red Cell Distribution Width 16.2 % Platelet Count 246 TH/MM3 Mean Platelet Volume 8.5 FL Neutrophils (%) (Auto) 70.7 % Lymphocytes (%) (Auto) 15.5 % Monocytes (%) (Auto) 10.8 % Eosinophils (%) (Auto) 2.5 % Basophils (%) (Auto) 0.5 % Neutrophils # (Auto) 6.5 TH/MM3 Lymphocytes # (Auto) 1.4 TH/MM3 Monocytes # (Auto) 1.0 TH/MM3 Eosinophils # (Auto) 0.2 TH/MM3 Basophils # (Auto) 0.1 TH/MM3 CBC Comment DIFF FINAL Differential Comment Blood Urea Nitrogen 104 MG/DL Creatinine 13.59 MG/DL Random Glucose 130 MG/DL Total Protein 8.1 GM/DL Albumin 3.6 GM/DL Calcium Level 8.6 MG/DL Phosphorus Level 7.4 MG/DL Magnesium Level 2.1 MG/DL Alkaline Phosphatase 82 U/L Aspartate Amino Transf (AST/SGOT) 18 U/L Alanine Aminotransferase (ALT/SGPT) 21 U/L Total Bilirubin 0.4 MG/DL Sodium Level 137 MEQ/L Potassium Level 4.5 MEQ/L Chloride Level 99 MEQ/L Carbon Dioxide Level 23.0 MEQ/L Anion Gap 15 MEQ/L Estimat Glomerular Filtration Rate 5 ML/MIN [facility] Medical Decision Making Medical Screen Exam Complete: Yes Emergency Medical Condition: Yes Differential Diagnosis Right second toe osteomyelitis, avulsion, cellulitis, abscess Narrative Course 56-year-old male history of diabetes, end-stage renal disease on hemodialysis, and toe amputation presents to emergency department concerned about an open wound on his right second toe. States he noticed this wound this morning after stepping out of the shower. Patient states he does not have significant pain but says he has had a history of a toe amputation is concerned about an infection. Patient states that he has been changing his socks frequently throughout the day and trying to perform foot checks. Patient follows Dr. Cruz and his last follow-up was in January. Patient states that he had his first toe amputated because of infectious process. Patient denies fever or chills. Patient denies fever, chills, nausea, vomiting or diarrhea. Denies urinary symptoms. Really has no other complaints today. Significant difficulty with obtaining labs and obtaining IV access. Requested Vascular Access however, it is apparent that the team is 'not allowed to come to the ED' anymore. Interventional radiology consulted for PICC line placement. Interventional radiology was not able to perform the PICC line secondary to dialysis status and stated that 'vascular access should perform this procedure.' CBC & BMP Diagram 03/15/17 11:55 Total Protein 8.1, Albumin 3.6, Calcium Level 8.6, Phosphorus Level 7.4 H, Magnesium Level 2.1, Alkaline Phosphatase 82, Aspartate Amino Transf (AST/SGOT) 18, Alanine Aminotransferase (ALT/SGPT) 21, Total Bilirubin 0.4 Last Impressions Foot X-Ray 03/15/17 0000 Signed Impressions: Service Date/Time: Wednesday, March 15, 2017 09:29 - CONCLUSION: Probable osteomyelitis distal tuft second toe Roverto Jefferson MD FACR ID, Nephrology (Dr. Putnam), and podiatry (Dr. Rossi) will be consulted. My attending, Dr. Oneal, was involved in the care of this patient. He required multiple communications to obtain the proper care for this patient as we were unable to obtain IV access during his emergency department stay. Patient departed the emergency department for hemodialysis and will be admitted to the floor. Thank you to Dr. Campos for taking this patient. Diagnosis Primary Impression: Osteomyelitis of toe of right foot Additional Impression: Diabetic foot ulcer Qualified Codes: E11.621 - Type 2 diabetes mellitus with foot ulcer; L97.511 - Non-pressure chronic ulcer of other part of right foot limited to breakdown of skin Admitting Information Admitting Physician Requests: Admit Condition: Stable Irma Helton Mar 15, 2017 09:28
--- NOTE | 2017-03-15 10:23 | RADRPT ---
EXAM DATE/TIME: 03/15/2017 09:29 [place] COMPARISON: No previous studies available for comparison. INDICATIONS : Inflammation MEDICAL HISTORY : Diabetes mellitus type 2. Hepatitis C. Hypertension. SURGICAL HISTORY : Amputation of the first digit distal to the mid shaft of the first metatarsal. ENCOUNTER: Initial ACUITY: 1 day PAIN SCORE: 0/10 LOCATION: Right Foot 2nd distal phalynx. FINDINGS: Previous amputation of the distal first metatarsal and first ray. Marked soft tissue swelling second digit with mild to moderate bony destructive change distal tuft suspicious for osteo myelitis. CONCLUSION: Probable osteomyelitis distal tuft second toe Roverto Jefferson MD FACR on March 15, 2017 at 9:51 Board Certified Radiologist. This report was verified electronically.
[2017-03-15 12:20] LABS: AUTOMATED NEUTROPHIL # 6.5 TH/MM3 (1.8-7.7); BASOPHIL # 0.1 TH/MM3 (0-0.2); BASOPHIL % 0.5 % (0.0-2.0); EOSINOPHIL # 0.2 TH/MM3 (0-0.4); EOSINOPHIL % 2.5 % (0.0-4.0); HEMATOCRIT 31.6 % (39.0-51.0); HEMO FLAGS DIFF FINAL; LYMPH % 15.5 % (9.0-44.0); LYMPHOCYTE # 1.4 TH/MM3 (1.0-4.8); MEAN CELL VOLUME 93.1 FL (80.0-100.0); MEAN CORPUSCULAR HEMOGLOBIN 30.2 PG (27.0-34.0); MEAN CORPUSCULAR HGB CONC 32.4 % (32.0-36.0); MONO % 10.8 % (0.0-8.0); NEUT % 70.7 % (16.0-70.0); PLATELET COUNT 246 TH/MM3 (150-450); RED CELL DISTRIBUTION WIDTH 16.2 % (11.6-17.2); WHITE BLOOD COUNT 9.2 TH/MM3 (4.0-11.0)
[2017-03-15 12:35] LABS: ALT (GPT) 21 U/L (12-78); ANION GAP 15 MEQ/L (5-15); AST (GOT) 18 U/L (15-37); BLOOD UREA NITROGEN 104 MG/DL (7-18); CHLORIDE 99 MEQ/L (98-107); GLOMERULAR FILTRATION RATE 5 ML/MIN (>89); MAGNESIUM 2.1 MG/DL (1.5-2.5); POTASSIUM 4.5 MEQ/L (3.5-5.1); SODIUM (NA) 137 MEQ/L (136-145)
[2017-03-15 12:37] LABS: ALKALINE PHOSPHATASE 82 U/L (45-117); TOTAL BILIRUBIN ADULT 0.4 MG/DL (0.2-1.0)
[2017-03-15] MEDS ORDERED: SODIUM CHLOR 0.9% 1000 ML INJ 1,000 ML IV PRN (13:23)
[2017-03-15] MEDS ORDERED: SODIUM CHLOR 0.9% 1000 ML INJ 1,000 ML OTHER PRN ×2 (13:23)
[2017-03-15 13:30] VITALS: O2SAT 99
[2017-03-15] MEDS ORDERED: GENTAMICIN SULFATE (DIALYSIS USE ONLY) 20 MG/2 ML VIAL OTHER PRN (13:30)
[2017-03-15] MEDS ORDERED: cloNIDine HCL 0.1 MG TAB PO PRN (13:30)
[2017-03-15] MEDS ORDERED: diphenhydrAMINE HCL 25 MG CAP PO PRN (13:30)
[2017-03-15] MEDS ORDERED: NITROGLYCERIN 0.4 MG SL 25 TABS/BTL SL PRN (13:30)
[2017-03-15] MEDS ORDERED: SODIUM CHLORIDE 0.9% FLUSH 10 ML FLUSH IV FLUSH PRN ×2 (13:30→14:30)
[2017-03-15] MEDS ORDERED: HEPARIN SODIUM - IV 10,000 UNITS/10 ML VIAL PRN (13:30)
[2017-03-15] MEDS ORDERED: HEPARIN SODIUM - IV 10,000 UNITS/10 ML VIAL IV FLUSH PRN (13:30)
[2017-03-15] MEDS ORDERED: GELATIN 12 MM/7 MM FOAM TOP PRN (13:30)
[2017-03-15] MEDS ORDERED: ALBUMIN 25% INJ 100 ML IV PRN (13:30)
[2017-03-15] MEDS ORDERED: MANNITOL 12.5 GM/50 ML VIAL IV PRN (13:30)
[2017-03-15] MEDS ORDERED: ACETAMINOPHEN 325 MG TAB PO PRN ×3 (13:30→14:30)
[2017-03-15] MEDS ORDERED: Vancomycin Consult Pharmacy 1 EA OTHER SCH (14:30)
[2017-03-15] MEDS ORDERED: SENNOSIDES 8.6 MG TAB PO PRN (14:30)
[2017-03-15] MEDS ORDERED: DEXTROSE 50% IN WATER 50 ML VIAL(D50) IV PUSH PRN (14:30)
[2017-03-15] MEDS ORDERED: oxyCODONE/ACETAMINOPHEN 5 MG/325 MG TAB PO PRN (14:30)
[2017-03-15] MEDS ORDERED: ONDANSETRON HCL 4 MG/2 ML VIAL IVP PRN (14:30)
[2017-03-15] MEDS ORDERED: PROCHLORPERAZINE 25 MG SUPP RECTAL PRN (14:30)
[2017-03-15] MEDS ORDERED: GLUCAGON 1 MG/ML VIAL OTHER PRN (14:30)
[2017-03-15] MEDS ORDERED: MAGNESIUM HYDROXIDE SUSP 30 ML CUP PO PRN (14:30)
[2017-03-15] MEDS ORDERED: VANCOMYCIN INJ 1,000 MG in SODIUM CHLOR 0.9% 250 ML INJ 250 ML IV SCH (14:30)
[2017-03-15] MEDS ORDERED: LACTULOSE SYRUP 20 GM/30 ML CUP PO PRN (14:30)
[2017-03-15] MEDS ORDERED: oxyCODONE/ACETAMINOPHEN 10 MG/325 MG TAB PO PRN (14:30)
[2017-03-15] MEDS ORDERED: BISACODYL 10 MG SUPP RECTAL PRN (14:30)
[2017-03-15] MEDS ORDERED: MISCELLANEOUS NURSING INFORMATION XX SCH (14:30)
[2017-03-15] MEDS ORDERED: NALOXONE HCL 0.4 MG/ML AMP IV PUSH PRN (14:30)
[2017-03-15] MEDS ORDERED: CHLORHEXIDINE GLUCONATE 2 % 1 PACK (2 CLOTHS) TOP PRN (14:30)
[2017-03-15] MEDS ORDERED: MORPHINE SULFATE 2 MG/ML INJ IV PUSH PRN ×2 (14:30)
--- NOTE | 2017-03-15 14:43 | HHI.HP ---
[facility] Service [facility] Primary Care Physician No Primary Care Physician Admission Diagnosis osteomyelitis, right 2nd toe Diagnoses: (1) MRSA infection Diagnosis: Principal (2) Osteomyelitis of toe of right foot Diagnosis: Principal (3) Peripheral neuropathy Diagnosis: Secondary (4) End stage renal disease on dialysis Diagnosis: Principal (5) Diabetic foot ulcer (6) Ulcer of right foot with fat layer exposed Diagnosis: Principal (7) Hypertension Diagnosis: Secondary (8) Anemia (9) Diabetes Diagnosis: Principal Chief Complaint: Wound right second toe Travel History International Travel<30 Days: No Contact w/Intl Traveler <30 Da: No Traveled to Known Affected Are: No History of Present Illness Patient is a 56-year-old gentleman with history of diabetes and end-stage renal disease and hypertension and history of right foot great toe amputation represents the emergency department concerned about an open wound on his right second toe. Patient states he notices when this morning after stepping out of the shower. Patient states he has no pain but does have a history of amputation and therefore was concerned about infection. Patient states that this morning and changing his socks frequently throughout the day and trying to perform foot checks but found this today. Patient normally follows with Dr. Cruz and his last checkup was in January. Patient states that he had his first toe amputated on the right foot because of infection suspect he has a history of MRSA denies any fevers or chills denies any nausea vomiting or diarrhea denies any urinary symptoms. No other complaints Review of Systems Constitutional: DENIES: Diaphoretic episodes, Fatigue, Fever, Weight gain, Weight loss, Chills, Dizziness, Change in appetite, Night Sweats Endocrine: DENIES: Heat/cold intolerance, Polydipsia, Polyuria, Polyphagia Eyes: DENIES: Blurred vision, Diplopia, Eye inflammation, Eye pain, Vision loss Ears, nose, mouth, throat: DENIES: Tinnitus, Hearing loss, Vertigo, Nasal discharge, Oral lesions Respiratory: DENIES: Apneas, Cough, Snoring, Wheezing, Hemoptysis Cardiovascular: DENIES: Chest pain, Palpitations, Syncope, Dyspnea on Exertion Gastrointestinal: DENIES: Abdominal pain, Black stools, Bloody stools, Constipation Musculoskeletal: DENIES: Joint pain, Muscle aches, Stiffness Integumentary: COMPLAINS OF: Rash (right second toe with open wound), DENIES: Abnormal pigmentation Hematologic/lymphatic: DENIES: Bruising, Lymphadenopathy Immunologic/allergic: DENIES: Eczema, Urticaria Neurologic: DENIES: Abnormal gait, Headache, Localized weakness, Paresthesias, Seizures, Speech Problems Psychiatric: DENIES: Anxiety, Confusion, Mood changes, Depression, Hallucinations Except as stated in HPI: all other systems reviewed are Neg Past Family Social History Past Medical History End-stage renal disease on hemodialysis Saturday Hyperlipidemia Hypertension Hepatitis C Diabetic neuropathy Past Surgical History Left upper arm access with arteriovenous shunt history of previous dialysis accesses before that Right great toe amputation Cataract extraction bilaterally Reported Medications Reported Meds & Active Scripts Active Reported Multi Vitamin Daily (Multiple Vitamin) 1 Tab Tab Gabapentin 100 Mg Cap 200 Mg PO BID Ecotrin Low Strength (Aspirin) 81 Mg Tabdr 81 Mg PO DAILY Allergies: Coded Allergies: amlodipine (Verified Allergy, Severe, Blurred Vision, lightheaded, nausea , 03/15/17) metoprolol (Verified Allergy, Severe, Blurred Vision, lightheadedness, nausea, 03/15/17) *MDRO Multi-Drug Resistant Organism (Verified Adverse Reaction, Unknown, 02/11/17) MRSA (wounds) - 2005; (foot) - 12/22/15, 01/12/16, 05/01/16, 07/03/16, 08/09/16, 09/04/16, 10/16/16 Active Ordered Medications Current Medications Sodium Chloride 1,000 ml @ 0 mls/hr Q0M PRN OTHER For Prime & Rinse Back; Start 03/15/17 at 13:23 Heparin Sodium (Porcine) (Heparin Inj) 8,000 units UNSCH PRN IV FLUSH WITH DIALYSIS; Start 03/15/17 at 13:30 Sodium Chloride 1,000 ml @ 200 mls/hr Q5H PRN IV WITH DIALYSIS; Start at 13:23 Sodium Chloride 1,000 ml @ 0 mls/hr Q0M PRN OTHER WITH DIALYSIS; Start at 13:23 Mannitol (Mannitol Inj) 12.5 gm UNSCH PRN IV WITH DIALYSIS; Start 03/15/17 at 13:30 Albumin Human 100 ml @ 60 mls/hr UNSCH PRN IV WITH DIALYSIS; Start 03/15/17 at 13:30 Sodium Chloride (NS Flush) 5 ml UNSCH PRN IV FLUSH WITH DIALYSIS; Start at 13:30 Heparin Sodium (Porcine) (Heparin Inj) UNSCH PRN .XX WITH DIALYSIS; Start at 13:30 Gentamicin Sulfate (Gentamicin (Dialysis) Inj) 20 mg UNSCH PRN OTHER WITH DIALYSIS; Start 03/15/17 at 13:30 Ondansetron HCl (Zofran Inj) 4 mg UNSCH PRN IV PUSH WITH DIALYSIS; Start 03/15 at 13:30 Acetaminophen (Tylenol) 650 mg UNSCH PRN PO for headach, pain, temp > 101F; Start 03/15/17 at 13:30 Diphenhydramine HCl (Benadryl) 25 mg UNSCH PRN PO for hives/itching/anaphylaxis ; Start 03/15/17 at 13:30 Nitroglycerin (Nitrostat Sl) 0.4 mg UNSCH PRN SL CHEST PAIN; Start 03/15/17 at 13:30 Clonidine (Catapres) 0.1 mg UNSCH PRN PO for BP > 180/100 X 2 readings; Start 03/15/17 at 13:30 Epoetin Chris (Epogen Inj) 6,000 units UNSCH PRN IV PUSH WITH DIALYSIS; Start 03/15/17 at 13:30 Gelatin (Gelfoam 12 Mm/7 Mm Top) 1 foam UNSCH PRN TOP SEE LABEL COMMENTS; Start 03/15/17 at 13:30 Aspirin (Ecotrin Ec) 81 mg DAILY PO ; Start 03/16/17 at 09:00 Gabapentin (Neurontin) 200 mg BID PO ; Start 03/15/17 at 21:00; Status UNV Family History Hypertension probable diabetes also Social History Denies any tobacco alcohol or illicits Physical Exam Vital Signs Vital Signs Date Time Temp Pulse Resp B/P (MAP) Pulse Ox O2 Delivery O2 Flow Rate FiO2 03/15/17 13:30 99 21 03/15/17 09:04 98.5 87 16 162/70 (100) 96 Physical Exam GENERAL: This is a well-nourished, well-developed patient, in no apparent distress. SKIN: No rashes, ecchymoses or lesions. Cool and dry. Right second toe with open area with partially avulsed calloused skin with nail involvement. Distal aspects macerated without obvious exudate no significant bleeding. No significant edema or erythema to the area right first toe is status post amputation HEAD: Atraumatic. Normocephalic. No temporal or scalp tenderness. EYES: Pupils equal round and reactive. Extraocular motions intact. No scleral icterus. No injection or drainage. ENT: Nose without bleeding, purulent drainage or septal hematoma. Throat without erythema, tonsillar hypertrophy or exudate. Uvula midline. Airway patent. NECK: Trachea midline. No JVD or lymphadenopathy. Supple, nontender, no meningeal signs. CARDIOVASCULAR: Regular rate and rhythm without murmurs, gallops, or rubs. S1 and S2 no S3 or S4 RESPIRATORY: Clear to auscultation. Breath sounds equal bilaterally. No wheezes , rales, or rhonchi. GASTROINTESTINAL: Abdomen soft, non-tender, nondistended. No hepato-splenomegaly , or palpable masses. No guarding. Morbidly obese MUSCULOSKELETAL: Extremities without clubbing, cyanosis, or edema. No joint tenderness, effusion, or edema noted. No calf tenderness. Negative Homans sign bilaterally. Left upper extremity AV fistula with good thrill and bruit NEUROLOGICAL: Awake and alert. Cranial nerves II through XII intact. Motor and sensory grossly within normal limits. Five out of 5 muscle strength in all muscle groups. Normal speech. Insight and judgment are good mood and behavior are appropriate Laboratory Laboratory Tests Test 03/15/17 11:55 White Blood Count 9.2 Red Blood Count 3.40 Hemoglobin 10.3 Hematocrit 31.6 Mean Corpuscular Volume 93.1 Mean Corpuscular Hemoglobin 30.2 Mean Corpuscular Hemoglobin Concent 32.4 Red Cell Distribution Width 16.2 Platelet Count 246 Mean Platelet Volume 8.5 Neutrophils (%) (Auto) 70.7 Lymphocytes (%) (Auto) 15.5 Monocytes (%) (Auto) 10.8 Eosinophils (%) (Auto) 2.5 Basophils (%) (Auto) 0.5 Neutrophils # (Auto) 6.5 Lymphocytes # (Auto) 1.4 Monocytes # (Auto) 1.0 Eosinophils # (Auto) 0.2 Basophils # (Auto) 0.1 CBC Comment DIFF FINAL Differential Comment Blood Urea Nitrogen 104 Creatinine 13.59 Random Glucose 130 Total Protein 8.1 Albumin 3.6 Calcium Level 8.6 Phosphorus Level 7.4 Magnesium Level 2.1 Alkaline Phosphatase 82 Aspartate Amino Transf (AST/SGOT) 18 Alanine Aminotransferase (ALT/SGPT) 21 Total Bilirubin 0.4 Sodium Level 137 Potassium Level 4.5 Chloride Level 99 Carbon Dioxide Level 23.0 Anion Gap 15 Estimat Glomerular Filtration Rate 5 Date/Time Source Procedure Growth Status 03/15/17 12:00 Blood Peripheral Aerobic Blood Culture Pending Received 03/15/17 12:00 Blood Peripheral Anaerobic Blood Culture Pending Received Result Diagram: 03/15/17 1155 03/15/17 1155 Imaging Last Impressions Foot X-Ray 03/15/17 0000 Signed Impressions: Service Date/Time: Wednesday, March 15, 2017 09:29 - CONCLUSION: Probable osteomyelitis distal tuft second toe Roverto Jefferson MD FACR Ami VTE Risk Assessment Ami VTE Risk Assessment: Mod/High Risk (score >= 2) Caprini Risk Assessment Model Point Value = 1 Point Value = 2 Point Value = 3 Point Value = 5 Age 41-60 Minor surgery BMI > 25 kg/m2 Swollen legs Varicose veins or History of unexplained or recurrent spontaneous Oral contraceptives or hormone replacement Sepsis (< 1 month) Serious lung disease, including pneumonia (< 1 month) Abnormal pulmonary function Acute myocardial infarction Congestive heart failure (< 1 month) History of inflammatory bowel disease Medical patient at bed rest Age 61-74 Arthroscopic surgery Major open surgery (> 45 min) Laparoscopic surgery (> 45 min) Malignancy Confined to bed (> 72 hours) Immobilizing plaster cast Central venous access Age >= 75 History of VTE Family history of VTE Factor V Leiden Prothrombin [id number] Lupus anticoagulant Anticardiolipin antibodies Elevated serum homocysteine Heparin-induced thrombocytopenia Other congenital or acquired thrombophilia Stroke (< 1 month) Elective arthroplasty Hip, pelvis, or leg fracture Acute spinal cord injury (< 1 month) Prophylaxis Regimen Total Risk Factor Score Risk Level Prophylaxis Regimen 0-1 Low Early ambulation 2 Moderate Order ONE of the following: *Sequential Compression Device (SCD) *Heparin 5000 units SQ BID 3-4 Higher Order ONE of the following medications: *Heparin 5000 units SQ TID *Enoxaparin/Lovenox 40 mg SQ daily (WT < 150 kg, CrCl > 30 mL/min) *Enoxaparin/Lovenox 30 mg SQ daily (WT < 150 kg, CrCl > 10-29 mL/min) *Enoxaparin/Lovenox 30 mg SQ BID (WT < 150 kg, CrCl > 30 mL/min) AND/OR *Sequential Compression Device (SCD) 5 or more Highest Order ONE of the following medications: *Heparin 5000 units SQ TID (Preferred with Epidurals) *Enoxaparin/Lovenox 40 mg SQ daily (WT < 150 kg, CrCl > 30 mL/min) *Enoxaparin/Lovenox 30 mg SQ daily (WT < 150 kg, CrCl > 10-29 mL/min) *Enoxaparin/Lovenox 30 mg SQ BID (WT < 150 kg, CrCl > 30 mL/min) AND *Sequential Compression Device (SCD) Assessment and Plan Assessment and Plan Right second toe osteomyelitis suspected will consult podiatry will consult infectious disease started on vancomycin with pharmacy to dose and Zosyn since patient has a history of MRSA Diabetic foot wound continue on antibiotics with vancomycin and Zosyn 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 End-stage renal disease on hemodialysis Saturday consult nephrology for continued hemodialysis Consult podiatry regarding the right second toe last myelitis/infection Hypertension resume home medications Neuropathy continue on gabapentin Pain control as necessary DVT prophylaxis We'll start GI prophylaxis also Will need vascular access to place a line so the patient can get antibiotics until we can determine what will need to be done per infectious disease and podiatry Anemia of chronic disease suspect from renal Interventional radiology has been consulted for line placement since Louis has been able to place a line on the patient in the emergency department Code Status Full code Discussed Condition With Discussed with RN and patient and family as well as emergency room physician and physician health assistant Physician Certification 2 Midnight Certification Type: Admission for Inpatient Services Order for Inpatient Services The services are ordered in accordance with Medicare regulations or non- Medicare payer requirements, as applicable. In the case of services not specified as inpatient-only, they are appropriately provided as inpatient services in accordance with the 2-midnight benchmark. Estimated LOS (days): 5 5 days is the estimated time the patient will need to remain in the hospital, assuming treatment plan goals are met and no additional complications. Post-Hospital Plan: Not yet determined Roverto Greenwood DO Mar 15, 2017 14:43
[2017-03-15] MEDS ORDERED: VANCOMYCIN INJ 1,500 MG in SODIUM CHLOR 0.9% 250 ML INJ 250 ML IV SCH (15:15)
[2017-03-15] MEDS ORDERED: PIPERACIL-TAZO 2.25 GM PREMIX 50 ML IV SCH (16:00)
[2017-03-15] MEDS: ONDANSETRON HCL 4 MG/2 ML VIAL IV PUSH PRN (16:36)
[2017-03-15] MEDS: EPOETIN ALFA 10,000 UNITS/ML VIAL IV PUSH PRN (16:38)
[2017-03-15] MEDS: INSULIN ASPART SUPPLEMENTAL SCALE SQ SCH ×2 (17:00→21:00)
--- NOTE | 2017-03-15 17:40 | MB ---
cc: GILL SHEETS MD DATE OF CONSULTATION 03/15/2017 REASON FOR CONSULTATION End-stage renal disease on hemodialysis, for management. HISTORY OF PRESENT ILLNESS This is a 56-year-old male known to me from before with past medical history of hypertension, diabetes mellitus, hyperlipidemia, history of hepatitis C, diabetic neuropathy, history of diabetic foot with right great toe amputation, end-stage renal disease on hemodialysis three times per week, history of chronic anemia who came to the hospital with complaint of right foot pain. I was called to see the patient for the management of dialysis. The patient has been on hemodialysis Saturday, Saturday and Saturday. He went for his dialysis, Saturday and today in the morning he woke up and he has too much pain in the right foot and according to him the skin was off from his second toe in the morning after he was stepping out of the shower. He does not have much pain. He has been following with Podiatry, Dr. Cruz, and the last time was seen was last month. He denies any history of fever. No shortness of breath. No chest pain. No nausea or vomiting. PAST MEDICAL HISTORY 1. Hypertension. 2. Diabetes mellitus. 3. Hepatitis C. 4. Chronic anemia. 5. Diabetic neuropathy. 6. History of diabetic foot infection in the past. 7. End-stage renal disease on hemodialysis three times per week. PAST SURGICAL HISTORY 1. Right greater toe amputation. 2. Left arm AV fistula surgery. 3. Cataract surgery bilaterally. REVIEW OF SYSTEMS Denies any headache, dizziness, blurring of vision. No history of fever. He has no shortness of breath, no chest pain, no palpitation. No nausea or vomiting. No abdominal pain. His appetite is normal. He denies any pain in the foot but he saw that there was a tear in the skin this morning when he got out of the shower of the right second toe and there was an open wound. Denies any history of trauma. SOCIAL HISTORY The patient is and lives alone. He has no history of smoking or alcoholism. FAMILY HISTORY Noncontributory ALLERGIES AMLODIPINE. METOPROLOL. MEDICATIONS Currently he is on the following medications - 1. Eli-Colace 1 tablet b.i.d. 2. Aspirin 91 mg daily. 3. Vancomycin 1 gram IV q. 12-hours. 4. Zosyn 2.25 grams IV q.12 hours. 5. Gabapentin 200 mg q. 24-hours. 6. Insulin as per sliding scale. 7. Zofran as needed. 8. Catapres as needed. PHYSICAL EXAMINATION GENERAL: On examination the patient is awake, alert. He is now on dialysis. VITAL SIGNS: His last blood pressure was 162/70, temperature is 98.5, oxygen saturation on room air is 99%. HEENT: Pupils are mid-constricted. Nonicteric sclerae. Conjunctivae pale. NECK: Supple. JVD is not elevated. LUNGS: The patient has bilateral good air entry with occasional wheezing. HEART: S1, S2. Regular rhythm. ABDOMEN: Distended, soft, lax. There is no tenderness. Bowel sounds positive. EXTREMITIES: He has mild edema in the legs. The right foot is covered with a dressing. INVESTIGATIONS WBC count is 9.2, hemoglobin 10.3, platelet count of 246, neutrophils 70.7. Sodium 137, potassium 4.5, chloride 99, bicarb 23, BUN 104, creatinine 13.5, phosphorus 7.4, Calcium is 8.6. AST and ALT normal. Blood cultures pending. IMAGING STUDIES The patient has a foot x-ray done which shows probable osteomyelitis in the distal tuft of the second toe. ASSESSMENT AND PLAN 1. Right foot infection, possible osteomyelitis. 2. End-stage renal disease on hemodialysis. 3. Hypertension. 4. Diabetes mellitus. 5. Anemia. 6. Hyperphosphatemia. The patient has been on hemodialysis Saturday, Saturday and Saturday. He is now getting his regular dialysis. We will give him Epogen with the dialysis. His phosphorus is high and calcium is on the lower side. I will put him back on PhosLo with each meal. He is on Zosyn and vancomycin. Vancomycin will be given with dialysis Thank you for the consultation and I will follow the patient while he is in the hospital. Podiatry and Infectious Disease have been consulted. We will wait for their recommendations. MD GM Coleman/RUPAL /2:46 PM /5:07 PM
[2017-03-15 20:00] VITALS: BP 138/65; PULSE 97; RESP 18; TEMP 98.3; O2SAT 97
--- NOTE | 2017-03-15 20:22 | MB ---
cc: ABDOULAYE DUKE FRANKLYN F. MD DATE OF CONSULTATION: 03/15/2017. REASON FOR CONSULTATION: Osteomyelitis of the right second toe. REQUESTING PHYSICIAN: BROOKE Elliott. HISTORY OF PRESENT ILLNESS: This is a 56-year-old black male who has a history of end-stage renal disease. The patient presented to the emergency department after noticing the wound on his right index toe this morning. The patient had amputation of the great toe of the right foot. He has been checking his feet regularly and said that he suddenly noticed some drainage from the right toe only this morning. He states that in prior days there was no problem with the toe. He said he called his brother who put a dressing on the foot and then he came to the emergency department for evaluation. He denies prior drainage from the toe. He has no fever. No chills. No nausea and no vomiting. A plain film of the foot was performed this morning and is probable osteomyelitis of the distal tuft of the second toe. Blood cultures were taken and the patient was admitted for IV antibiotics. His white blood cell count is normal. He undergoes hemodialysis Saturday, Saturday and Saturday for chronic renal disease. He has no other complaints. PAST MEDICAL HISTORY: 1. Hypertension. 2. Hepatitis C. 3. Hyperlipidemia. 4. Diabetic neuropathy. 5. Diabetes mellitus. 6. ____ left upper extremity. ALLERGIES: 1. METOPROLOL. 2. AMLODIPINE. MEDICATIONS: 1. Vancomycin. 2. Piperacillin / tazobactam. 3. Pepcid. 4. PhosLo. 5. Eli-Colace. SOCIAL HISTORY: No tobacco. No alcohol. No illicit drugs. 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 FAMILY HISTORY: Noncontributory. REVIEW OF SYSTEMS: CONSTITUTIONAL: Denies fever or chills. HEAD, EYES, EARS, NOSE, THROAT: No visual blurring or diplopia. No difficulty swallowing or soreness of the throat. NECK: No neck swelling or pain. RESPIRATORY: No cough or shortness of breath. CARDIOVASCULAR: No palpitations or chest pain. GASTROINTESTINAL: Occasional nausea. No vomiting. No abdominal pain. No diarrhea. GENITOURINARY: No urgency, frequency or dysuria. MUSCULOSKELETAL: Occasional cramps. INTEGUMENTARY: No skin rash or itching. HEMATOPOIETIC: No easy bruising or bleeding. ENDOCRINE: No polyuria or polydipsia. NEUROLOGIC: No problems with coordination. PSYCHIATRIC: No mood changes or depression. PHYSICAL EXAMINATION: GENERAL: This is a pleasant male who is in no acute distress. He is awake and alert and oriented. VITAL SIGNS: Temperature 98.5. HEAD, EYES, EARS, NOSE, THROAT: Extraocular movements grossly intact. Pupils reactive to light. No icterus. Oropharynx with moist mucosa without lesions. NECK: The neck is supple without adenopathy. LUNGS: Clear to auscultation. HEART: Regular rate and rhythm. No murmurs. No rubs. No gallops. ABDOMEN: Bowel sounds present, obese, soft, nontender. RECTAL: Not performed. EXTREMITIES: The right foot second toe at the distal aspect at the tuft has an erosion superficially where the nail has been removed from its original location and is now embedded into the flesh at the tuft of the toe. There is a clean-based ulceration circumferentially around the tip of the toe. No foul-smelling drainage. No erythema. SKIN: No diffuse rash. NEUROLOGIC: Nonfocal. PSYCHIATRIC: The patient is calm and cooperative. LABS: WBCs 9.2, platelet count 246,000, hemoglobin 10.3. Creatinine 13.59, BUN 104, sodium 137. Liver function tests normal. IMPRESSION: Ulcerated wound of the right second toe. The x-rays suggest possible osteomyelitis of the tuft of the toe; however, I am not convinced that he has osteomyelitis given the appearance of the wound which the patient also notes is a fresh ulcerated wound and has no foul drainage. 2. History of diabetes mellitus. 3. End-stage kidney disease on hemodialysis. RECOMMENDATIONS: 1. Continue Vancomycin IV with dialysis. 2. Obtain a culture from the wound to guide antibiotic therapy. 3. Podiatry needs to see the patient to possibly extract the toenail. 4. Send the culture to guide antibiotic treatment. Thank you for this consultation. I will monitor the patient's progress along with you and make further recommendations on followup if necessary. Leroy Vilchis MD FD/JCNga /6:53 PM /7:38 PM
[2017-03-15] MEDS: DOCUSATE SODIUM 50 MG/SENNA 8.6 MG TAB PO SCH (21:00)
[2017-03-15] MEDS: CALCIUM ACETATE 667 MG CAP PO SCH (21:47)
[2017-03-15] MEDS: VITAMIN B CMPLX/VITC/FOLIC AC CAP PO SCH (21:47)
[2017-03-15] MEDS: PIPERACIL-TAZO 2.25 GM PREMIX 50 ML IV SCH (21:48)
[2017-03-15] MEDS: FAMOTIDINE 20 MG/2 ML VIAL IV PUSH SCH (21:48)
[2017-03-15] MEDS: SODIUM CHLORIDE 0.9% FLUSH 10 ML FLUSH IV FLUSH SCH (21:49)
[2017-03-15 22:10] VITALS: PULSE 92
[2017-03-16] VITALS (8 sets, daily range): BP systolic 113–154; BP diastolic 59–68; PULSE 77–87; RESP 18–20; TEMP 97.1–98.8; O2SAT 92–97
[2017-03-16] MEDS: CHLORHEXIDINE GLUCONATE 2 % 1 PACK (2 CLOTHS) TOP SCH (04:00)
[2017-03-16] MEDS: FAMOTIDINE 20 MG/2 ML VIAL IV PUSH SCH (05:52)
[2017-03-16] MEDS: INSULIN ASPART SUPPLEMENTAL SCALE SQ SCH ×4 (08:00→21:00)
[2017-03-16] MEDS: GABAPENTIN 100 MG CAP PO SCH (08:05)
[2017-03-16] MEDS: VITAMIN B CMPLX/VITC/FOLIC AC CAP PO SCH (08:06)
[2017-03-16] MEDS: DOCUSATE SODIUM 50 MG/SENNA 8.6 MG TAB PO SCH ×2 (08:06→21:00)
[2017-03-16] MEDS: ASPIRIN EC 81 MG TABEC PO SCH (08:06)
[2017-03-16] MEDS: CALCIUM ACETATE 667 MG CAP PO SCH ×3 (08:07→17:35)
[2017-03-16] MEDS: PIPERACIL-TAZO 2.25 GM PREMIX 50 ML IV SCH ×2 (09:44→21:19)
[2017-03-16] MEDS: SODIUM CHLORIDE 0.9% FLUSH 10 ML FLUSH IV FLUSH SCH ×2 (09:44→21:20)
--- NOTE | 2017-03-16 12:32 | PD.POD.CON ---
Patient Intake Chief Complaint ulceration distal tip of second toe right foot Consult Requested by Dr. Hwang Reason for Consult Evaluation and treatment for possible osteomyelitis second toe right foot Primary Care Physician No Primary Care Physician History of Present Illness Patient is a 56-year-old male on hemodialysis well-known to myself from previous admissions and wound care center visits. Patient previously had an amputation of the first ray of the right foot. This went on to heal. Patient has developed a second toe hammertoe. He developed a callus on the tip of the toe which he did not address. He presented to the emergency room yesterday that toe open and draining. Radiographs show destruction of the distal phalanx of the second toe of the right foot consistent with osteomyelitis. Patient was admitted and I was consulted to see the patient Coded Allergies: amlodipine (Verified Allergy, Severe, Blurred Vision, lightheaded, nausea , 03/15/17) metoprolol (Verified Allergy, Severe, Blurred Vision, lightheadedness, nausea, 03/15/17) *MDRO Multi-Drug Resistant Organism (Verified Adverse Reaction, Unknown, 02/11/17) MRSA (wounds) - 2005; (foot) - 12/22/15, 01/12/16, 05/01/16, 07/03/16, 08/09/16, 09/04/16, 10/16/16 Preferred Language to Discuss: [place] Barriers to Learning: None Teaching Method: Discussion Vital Signs Date Time Temp Pulse Resp B/P (MAP) Pulse Ox O2 Delivery O2 Flow Rate FiO2 03/16/17 08:00 98.4 81 18 145/67 (93) 95 03/16/17 05:47 98.3 80 20 118/59 (78) 95 03/16/17 03:44 92 03/16/17 00:00 98.8 83 20 116/60 (78) 92 03/16/17 00:00 82 03/15/17 22:10 92 03/15/17 20:00 Room Air 03/15/17 20:00 98.3 97 18 138/65 (89) 97 03/15/17 13:30 99 21 Pain scale used: 0-10 numeric scale Pain score: 1 Medications Current Medications Sodium Chloride 1,000 ml @ 0 mls/hr Q0M PRN OTHER For Prime & Rinse Back; Start 03/15/17 at 13:23 Heparin Sodium (Porcine) (Heparin Inj) 8,000 units UNSCH PRN IV FLUSH WITH DIALYSIS; Start 03/15/17 at 13:30 Sodium Chloride 1,000 ml @ 200 mls/hr Q5H PRN IV WITH DIALYSIS; Start at 13:23 Sodium Chloride 1,000 ml @ 0 mls/hr Q0M PRN OTHER WITH DIALYSIS; Start at 13:23 Mannitol (Mannitol Inj) 12.5 gm UNSCH PRN IV WITH DIALYSIS; Start 03/15/17 at 13:30 Albumin Human 100 ml @ 60 mls/hr UNSCH PRN IV WITH DIALYSIS; Start 03/15/17 at 13:30 Sodium Chloride (NS Flush) 5 ml UNSCH PRN IV FLUSH WITH DIALYSIS; Start at 13:30 Heparin Sodium (Porcine) (Heparin Inj) UNSCH PRN .XX WITH DIALYSIS; Start at 13:30 Gentamicin Sulfate (Gentamicin (Dialysis) Inj) 20 mg UNSCH PRN OTHER WITH DIALYSIS; Start 03/15/17 at 13:30 Ondansetron HCl (Zofran Inj) 4 mg UNSCH PRN IV PUSH WITH DIALYSIS Last administered on 03/15/17 16:36; Start 03/15/17 at 13:30 Acetaminophen (Tylenol) 650 mg UNSCH PRN PO for headach, pain, temp > 101F Last administered on 03/15/17 22:33; Start 03/15/17 at 13:30 Diphenhydramine HCl (Benadryl) 25 mg UNSCH PRN PO for hives/itching/anaphylaxis ; Start 03/15/17 at 13:30 Nitroglycerin (Nitrostat Sl) 0.4 mg UNSCH PRN SL CHEST PAIN; Start 03/15/17 at 13:30 Clonidine (Catapres) 0.1 mg UNSCH PRN PO for BP > 180/100 X 2 readings; Start 03/15/17 at 13:30 Epoetin Chris (Epogen Inj) 6,000 units UNSCH PRN IV PUSH WITH DIALYSIS Last administered on 03/15/17 16:38; Start 03/15/17 at 13:30 Gelatin (Gelfoam 12 Mm/7 Mm Top) 1 foam UNSCH PRN TOP SEE LABEL COMMENTS; Start 03/15/17 at 13:30 Aspirin (Ecotrin Ec) 81 mg DAILY PO Last administered on 03/16/17 08:06; Start 03/16/17 at 09:00 Gabapentin (Neurontin) 200 mg Q24H PO Last administered on 03/16/17 08:05; Start 03/16/17 at 09:00 Sodium Chloride (NS Flush) 2 ml UNSCH PRN IV FLUSH FLUSH AFTER USING IV ACCESS ; Start 03/15/17 at 14:30 Sodium Chloride (NS Flush) 2 ml BID IV FLUSH Last administered on 03/16/17 09 :44; Start 03/15/17 at 21:00 Acetaminophen (Tylenol) 650 mg Q4H PRN PO TEMP > 100.4; Start 03/15/17 at 14: 30 Ondansetron HCl (Zofran Inj) 4 mg Q6H PRN IVP NAUSEA OR VOMITING; Start at 14:30 Prochlorperazine (Compazine Supp) 25 mg Q12H PRN RECTAL NAUSEA OR VOMITING; Start 03/15/17 at 14:30 Acetaminophen (Tylenol) 650 mg Q6H PRN PO PAIN SCALE 1 TO 2; Start 03/15/17 at 14:30 Oxycodone/ Acetaminophen (Percocet 5-325 Mg) 1 tab Q6H PRN PO PAIN SCALE 3 TO 5; Start 03/15/17 at 14:30 Oxycodone/ Acetaminophen (Percocet 10-325 Mg) 1 tab Q6H PRN PO PAIN SCALE 6 TO 10; Start 03/15/17 at 14:30 Morphine Sulfate (Morphine Inj) 2 mg Q3H PRN IV PUSH Pain 3-5; if unable to take PO; Start 03/15/17 at 14:30 Morphine Sulfate (Morphine Inj) 4 mg Q3H PRN IV PUSH Pain 6-10;if unable to take PO; Start 03/15/17 at 14:30 Naloxone HCl (Narcan Inj) 0.4 mg UNSCH PRN IV PUSH SEE LABEL COMMENTS; Start 03/15/17 at 14:30 Senna/Docusate Sodium (Eli-Colace) 1 tab BID PO Last administered on 08:06; Start 03/15/17 at 21:00 Magnesium Hydroxide (Milk Of Magnesia Liq) 30 ml Q12H PRN PO Mild constipation ; Start 03/15/17 at 14:30 Sennosides (Senokot) 17.2 mg Q12H PRN PO Moderate constipation; Start at 14:30 Bisacodyl (Dulcolax Supp) 10 mg DAILY PRN RECTAL SEVERE CONSITIPATION; Start 03/15/17 at 14:30 Lactulose (Lactulose Liq) 30 ml DAILY PRN PO SEVERE CONSITIPATION; Start 03/15 at 14:30 Vancomycin HCl 1000 mg/Sodium Chloride 250 ml @ 250 mls/hr Q12H IV ; Start at 14:30; Stop 03/15/17 at 15:06; Status DC Piperacillin Sod/ Tazobactam Sod 50 ml @ 100 mls/hr Q12H IV ; Start 03/15/17 at 16:00; Status Cancel Pharmacy Profile Note 0 ml @ 0 mls/hr UNSCH OTHER ; Start 03/15/17 at 14:30; Stop 03/15/17 at 15:17; Status DC Miscellaneous Information 1 Q361D XX ; Start 03/15/17 at 14:30 Chlorhexidine Gluconate (Chlorhexidine 2% Cloth) 3 pack Taper DAILY@04 TOP Last administered on 03/16/17t 04:00; Start 03/16/17 at 04:00; Stop 03/12/18 at 03:59 Chlorhexidine Gluconate (Chlorhexidine 2% Cloth) 3 pack UNSCH PRN TOP HYGIENIC CARE; Start 03/15/17 at 14:30 Insulin Aspart (NovoLOG SUPPLEMENTAL SCALE) 1 ACHS SLIDING SCALE SQ ; Start at 17:00 Dextrose (D50w (Vial) Inj) 50 ml UNSCH PRN IV PUSH HYPOGLYCEMIA-SEE COMMENTS; Start 03/15/17 at 14:30 Glucagon (Glucagon Inj) 1 mg UNSCH PRN OTHER HYPOGLYCEMIA-SEE COMMENTS; Start 03/15/17 at 14:30 Vancomycin HCl 1000 mg/Sodium Chloride 250 ml @ 250 mls/hr ONCE ONCE IV ; Start 03/16/17 at 14:30; Stop 03/16/17 at 15:29; Status UNV Vancomycin HCl 1500 mg/Sodium Chloride 250 ml @ 250 mls/hr WITH DIALYSIS IV Last administered on 03/15/17t 16:36; Start 03/15/17 at 15:15 Calcium Acetate (Phoslo) 2,001 mg TID PO Last administered on 03/16/17 08:07 ; Start 03/15/17 at 18:00 Vitamin B Complex/ Vit C/Folic Acid (Nephrocaps) 1 cap DAILY PO Last administered on 03/16/17 08:06; Start 03/15/17 at 18:00 Famotidine (Pepcid Inj) 10 mg Q12H IV PUSH Last administered on 03/16/17 05: 52; Start 03/15/17 at 18:00; Stop 03/16/17 at 08:54; Status DC Heparin Sodium (Porcine) (*HEPARIN CENTRAL FLUSH PERIprocedural ONLY) 500 units STK-MED ONCE IV FLUSH Last administered on 03/15/17 18:37; Start 03/15/17 at 18:37; Stop 03/15/17 at 18:38; Status DC Piperacillin Sod/ Tazobactam Sod 50 ml @ 100 mls/hr Q12H IV Last administered on 03/16/17 09:44; Start 03/15/17 at 21:00 Mupirocin (Bactroban 2% Cream) 1 applic Q12HR TOPICAL ; Start 03/16/17 at 12:30 ; Status UNV Past, Family & Social History Past Medical History HEENT: REPORTS HX OF: Cataracts Endocrine: REPORTS HX OF: Diabetes mellitus Cardiovascular: REPORTS HX OF: Hyperlipidemia, Hypertension Genitourinary: REPORTS HX OF: Hemodialysis, Kidney failure (stage 5) Infectious Disease: REPORTS HX OF: Chickenpox (as a child), Measles (as a child ), Mumps (as a child) Neurologic: REPORTS HX OF: Peripheral neuropathy Disabilities: REPORTS HX OF: Vision deficit (reading glasses) Past Surgical History HEENT: REPORTS HX OF: Cataract extraction Gastrointestinal: REPORTS HX OF: Colectomy, total Genitourinary: REPORTS HX OF: Other surgery Musculoskeletal: REPORTS HX OF: Other musculoskeletal srg (amputation of the right hallux) Family Medical History Unknown G8 FATHER G8 MOTHER Substance Use Substance Use: Denies use Review of Systems Cardiovascular: COMPLAINS OF: Hx hypertension Genitourinary: COMPLAINS OF: Renal disease, Dialysis Musculoskeletal: COMPLAINS OF: Joint pain/swell/dysarthr, Deformaties Exam-Podiatry Constitutional General appearance: comfortable Nutritional status: overweight Orientation: alert and oriented x3 Dermatological Exam Skin Temp - Right: Within Normal Limits Skin Texture - Right: Within Normal Limits Skin Elasticity - Right: Within Normal Limits Skin Tugor - Right: Within Normal Limits Hair Growth - Right: Within Normal Limits Pigmentation - Right: Within Normal Limits Skin Temp - Left: Within Normal Limits Skin Texture - Left: Within Normal Limits Skin Elasticity - Left: Within Normal Limits Skin Tugor - Left: Within Normal Limits Hair Growth - Left: Within Normal Limits Pigmentation - Left: Within Normal Limits Ulcers: Location/Measurements Ulceration distal tip of the second toe of the right foot with exposed bone. Other: Scars, Surgery,Injury Amputation site of the right hallux is well-healed. Vascular/Lymphatic Exam R Dorsails Pedis: Palpable L Dorsails Pedis: Palpable R Posterior Tibial: Palpable L Posterior Tibial: Palpable Neurologic Exam Present on right: Tingling, Anesthesia Present on left: Tingling, Anesthesia Musculoskeletal Exam Details Right hallux amputation Muscle Strength Dorsiflexion (Right): Normal Plantarflexion (Right): Normal Inversion (Right): Normal Eversion (Right): Normal Digital (Right): Normal Dorsiflexion (Left): Normal Plantarflexion (Left): Normal Inversion (Left): Normal Eversion (Left): Normal Digital (Left): Normal Foot Range of Motion Dorsiflexion (Right): Normal Plantarflexion (Right): Normal Inversion (Right): Normal Eversion (Right): Normal Digital (Right): Normal Dorsiflexion (Left): Normal Plantarflexion (Left): Normal Inversion (Left): Normal Eversion (Left): Normal Digital (Left): Normal Joint Instability Mallet Toe: Toe #2 (R) (with distal ulceration) Present (Right): Pes Planus Present (Left): Pes Planus Wound Assessment Wound Information - Wound One Wound Location: Right plantar foot of first metatarsal Wound Two Wound Location: Right lateral Great toe Wound Three Wound Location: Right medial great toe Lab and Radiology Results Laboratory Laboratory Tests Test 03/15/17 11:55 White Blood Count 9.2 TH/MM3 Red Blood Count 3.40 MIL/MM3 Hemoglobin 10.3 GM/DL Hematocrit 31.6 % Mean Corpuscular Volume 93.1 FL Mean Corpuscular Hemoglobin 30.2 PG Mean Corpuscular Hemoglobin Concent 32.4 % Red Cell Distribution Width 16.2 % Platelet Count 246 TH/MM3 Mean Platelet Volume 8.5 FL Neutrophils (%) (Auto) 70.7 % Lymphocytes (%) (Auto) 15.5 % Monocytes (%) (Auto) 10.8 % Eosinophils (%) (Auto) 2.5 % Basophils (%) (Auto) 0.5 % Neutrophils # (Auto) 6.5 TH/MM3 Lymphocytes # (Auto) 1.4 TH/MM3 Monocytes # (Auto) 1.0 TH/MM3 Eosinophils # (Auto) 0.2 TH/MM3 Basophils # (Auto) 0.1 TH/MM3 CBC Comment DIFF FINAL Differential Comment Laboratory Tests Test 03/15/17 11:55 Blood Urea Nitrogen 104 MG/DL Creatinine 13.59 MG/DL Random Glucose 130 MG/DL Total Protein 8.1 GM/DL Albumin 3.6 GM/DL Calcium Level 8.6 MG/DL Phosphorus Level 7.4 MG/DL Magnesium Level 2.1 MG/DL Alkaline Phosphatase 82 U/L Aspartate Amino Transf (AST/SGOT) 18 U/L Alanine Aminotransferase (ALT/SGPT) 21 U/L Total Bilirubin 0.4 MG/DL Sodium Level 137 MEQ/L Potassium Level 4.5 MEQ/L Chloride Level 99 MEQ/L Carbon Dioxide Level 23.0 MEQ/L Anion Gap 15 MEQ/L Estimat Glomerular Filtration Rate 5 ML/MIN Microbiology Date/Time Source Procedure Growth Status 03/15/17 12:00 Blood Peripheral Aerobic Blood Culture - Preliminary NO GROWTH IN 1 DAY Resulted 03/15/17 12:00 Blood Peripheral Anaerobic Blood Culture - Preliminary NO GROWTH IN 1 DAY Resulted 03/15/17 11:55 Blood Peripheral Aerobic Blood Culture - Preliminary NO GROWTH IN 1 DAY Resulted 03/15/17 11:55 Blood Peripheral Anaerobic Blood Culture - Preliminary NO GROWTH IN 1 DAY Resulted Radiology Last Impressions Foot X-Ray 03/15/17 0000 Signed Impressions: Service Date/Time: Wednesday, March 15, 2017 09:29 - CONCLUSION: Probable osteomyelitis distal tuft second toe Roverto Jefferson MD FACR Assessment/Plan Problem List: (1) Osteomyelitis of toe of right foot Status: Acute (2) End stage renal disease on dialysis Status: Chronic Additional Plans & Procedures PLAN: Scheduled the patient for amputation and distal aspect of the second toe for Arcenio morning. Explained risks benefits and alternatives to the planned surgery. Patient wishes to proceed with surgery as scheduled. Preop orders and consent written. Patient can have dialysis Saturday after surgery and possibly be discharged on Saturday. Tacos Cruz DPM Mar 16, 2017 12:32
[2017-03-16 14:14] LABS: INTERNATIONAL NORMALIZED RATIO 1.1 RATIO
--- NOTE | 2017-03-16 14:25 | RADRPT ---
EXAM DATE/TIME: 03/15/2017 16:55 [facility] COMPARISON: No previous studies available for comparison. INDICATIONS : Patient with a history of right foot osteomyelitis. Patient is end-stage renal failure and on dialysi s with left upper extremity fistula. Therefore, a cuffed tunneled internal jugular Power-PICC line wi ll be placed. MEDICAL HISTORY : ESRD Hyperlipidemia HTN Hep C diabetic neuropathy SURGICAL HISTORY : Left arm fistula Right great toe amputation ENCOUNTER: Initial ACUITY: 1 day PAIN SCORE: 0/10 FLUORO TIME: 1.6 minutes IMAGE SERIES: 1 ACCESS: Left internal jugular vein DEVICE(S): 1.) 5 Thai single lumen 30 cm Tunneled PICC PROCEDURE : 1. Ultrasound guidance for venous catheterization. 2. Fluoroscopic guidance. 3. Ultrasound & fluoroscopic guided central venous Power PICC line placement. The risks, benefits and alternatives to the procedure were explained and verbal and written consent w as obtained. The site was prepped in sterile fashion. Full sterile technique was used, including ca p, mask, sterile gloves and gown and a large sterile sheet. Hand hygiene and 2% chlorhexidine prep w as utilized per protocol for cutaneous antisepsis with appropriate dry time for site. Sterile gel a nd sterile probe cover were utilized for ultrasound guidance. The skin and subcutaneous tissues wer e infiltrated with local anesthetic solution. Ultrasound examination of the right anterior vein demonstrated it to be occluded. Observation of the left intramedullary vein demonstrated the vein to be patent. Single image was obtained and placed in PACS archive. Micropuncture needle was advanced into the left internal jugular vein under direct ultr asound guidance. Next, site approximate 5 cm inferior to the venotomy site was infiltrated with lidoc soy solution. A cuffed Power PICC line was then tunneled from the dermatotomy to the venotomy site. Subsequently the PICC line was cut to prescribed length and introduced, positioned with tip at the ca voatrial junction level. The line was flushed and secured per protocol. CONCLUSION: 1. Uncomplicated central venous cuffed IJ Power PICC line placement. 2. The PICC line can be used immediately. Ok Sosa MD on March 16, 2017 at 14:20 Board Certified Radiologist. This report was verified electronically.
[2017-03-16] MEDS ORDERED: VANCOMYCIN INJ 1,000 MG in SODIUM CHLOR 0.9% 250 ML INJ 250 ML IV ONE (14:30)
--- NOTE | 2017-03-16 14:46 | HHI.PR ---
Subjective Remarks Follow-up diabetic foot infection. Denies foot pain has peripheral neuropathy. Discussed with RN and podiatry Objective Vitals Vital Signs Date Time Temp Pulse Resp B/P (MAP) Pulse Ox O2 Delivery O2 Flow Rate FiO2 03/16/17 08:00 98.4 81 18 145/67 (93) 95 03/16/17 05:47 98.3 80 20 118/59 (78) 95 03/16/17 03:44 92 03/16/17 00:00 98.8 83 20 116/60 (78) 92 03/16/17 00:00 82 03/15/17 22:10 92 03/15/17 20:00 Room Air 03/15/17 20:00 98.3 97 18 138/65 (89) 97 I/O 03/15/17 03/15/17 03/15/17 03/16/17 03/16/17 03/16/17 07:00 15:00 23:00 07:00 15:00 23:00 Intake Total 50 ml 120 ml Output Total 3000 ml Balance -2950 ml 120 ml Intake Oral 120 ml IV Total 50 ml Output Hemodialysis 3000 ml # Voids 1 Result Diagram: 03/15/17 1155 03/15/17 1155 Imaging Last Impressions PICC Line Insertion 03/15/17 0000 Signed Impressions: Service Date/Time: Wednesday, March 15, 2017 16:55 - CONCLUSION: 1. Uncomplicated central venous cuffed IJ Power PICC line placement. 2. The PICC line can be used immediately. Ok Sosa MD Foot X-Ray 03/15/17 0000 Signed Impressions: Service Date/Time: Wednesday, March 15, 2017 09:29 - CONCLUSION: Probable osteomyelitis distal tuft second toe Roverto Jefferson MD FACR Objective Remarks GENERAL: This is a well-nourished, well-developed patient, in no apparent distress. SKIN: No rashes, ecchymoses or lesions. Cool and dry. Right second toe with open area with partially avulsed calloused skin. Distal aspects macerated without obvious exudate no significant bleeding. Surgically missing right great toe CARDIOVASCULAR: Regular rate and rhythm without murmurs, gallops, or rubs. S1 and S2 no S3 or S4 RESPIRATORY: Clear to auscultation. Breath sounds equal bilaterally. No wheezes , rales, or rhonchi. GASTROINTESTINAL: Abdomen soft, non-tender, nondistended. No guarding. Morbidly obese MUSCULOSKELETAL: Extremities without clubbing, cyanosis, or edema. No joint tenderness, effusion, or edema noted. No calf tenderness. Negative Homans sign bilaterally. Left upper extremity AV fistula with good thrill and bruit NEUROLOGICAL: Awake and alert. Cranial nerves II through XII intact. Motor and sensory grossly within normal limits. Five out of 5 muscle strength in all muscle groups. Normal speech. Procedures PICC A/P Problem List: (1) MRSA infection ICD Code: A49.02 - Methicillin resistant Staphylococcus aureus infection, unspecified site Status: Acute (2) Osteomyelitis of toe of right foot ICD Code: M86.9 - Osteomyelitis, unspecified Status: Acute (3) Peripheral neuropathy ICD Code: G62.9 - Polyneuropathy, unspecified Status: Chronic (4) End stage renal disease on dialysis ICD Code: N18.6 - End stage renal failure on dialysis; Z99.2 - Dependence on renal dialysis Status: Chronic (5) Diabetic foot ulcer ICD Code: E11.621 - Type 2 diabetes mellitus with foot ulcer; L97.509 - Non- pressure chronic ulcer of other part of unspecified foot with unspecified severity Status: Acute (6) Ulcer of right foot with fat layer exposed ICD Code: L97.512 - Non-pressure chronic ulcer of other part of right foot with fat layer exposed Status: Resolved (7) Hypertension ICD Code: I10 - Hypertension Status: Acute (8) Anemia ICD Code: D64.9 - Anemia Status: Acute (9) Diabetes ICD Code: E11.9 - Diabetes Status: Acute Assessment and Plan Diabetic foot infection/Right second toe osteomyelitis suspected with history of MRSA. Continue IV vancomycin and Zosyn. Wound care. Pain management with Percocet and IV morphine Podiatry and ID consulted End-stage renal disease on hemodialysis Saturday consult nephrology for continued hemodialysis Hypertension resume home medications. Stable Neuropathy continue on gabapentin. Stable Diabetes mellitus. Monitor fingerstick with sliding scale coverage DVT prophylaxis with early ambulation. Chemical prophylaxis postoperatively Discharge Planning Will need surgical intervention Serg Hwang MD Mar 16, 2017 14:46
--- NOTE | 2017-03-16 16:37 | EKG ---
Date Performed: 03/16/2017 Time Performed: 14:04:47 PTAGE: 56 years EKG: Sinus rhythm EARLY REPOLARIZATION BORDERLINE ECG PREVIOUS TRACING : 07/17/2016 20.26 Compared to prior tracing no significant change DOCTOR: Esa Mosley Interpretating Date/Time 03/16/2017 16:35:45
--- NOTE | 2017-03-16 16:38 | RADRPT ---
EXAM DATE/TIME: 03/16/2017 16:02 [facility] COMPARISON: CHEST PA & LAT, November 13, 2015, 9:47. INDICATIONS : Cellulitis. MEDICAL HISTORY : Diabetes mellitus type 2. Hepatitis C. Hypertension. SURGICAL HISTORY : Amputation of the first digit distal to the mid shaft of the first metatarsal. ENCOUNTER: Subsequent ACUITY: 1 day PAIN SCORE: 0/10 LOCATION: Bilateral chest FINDINGS: PA and lateral views of the chest. Left IJ central venous catheter in place with tip in the distal SV C. No evidence of pneumothorax. Lung volumes are low. The lungs are clear. Cardiomediastinal silhouet te within normal limits. No evidence of pleural effusion or pneumothorax. CONCLUSION: Low lung volumes. Left IJ central venous catheter. No acute cardiopulmonary disea se identified. Ramsey Parham MD on March 16, 2017 at 16:35 Board Certified Radiologist. This report was verified electronically.
--- NOTE | 2017-03-16 17:32 | HHI.NPPN ---
Subjective General Problems: Anemia, Edema, Hypertension Renal Failure: End Stage Renal Disease History of Present Illness 56-year-old male known to me from before with past medical history of hypertension, diabetes mellitus, hyperlipidemia, history of hepatitis C, diabetic neuropathy, history of diabetic foot with right great toe amputation, end-stage renal disease on hemodialysis three times per week, history of chronic anemia who came to the hospital with complaint of right foot pain. I was called to see the patient for the management of dialysis. The patient has been on hemodialysis Saturday, Saturday and Saturday. Additional Remarks Patient is alert, no SOB, sitting on the chair, not in distress. Objective Data Data Vital Signs Date Time Temp Pulse Resp B/P (MAP) Pulse Ox O2 Delivery O2 Flow Rate FiO2 03/16/17 12:00 97.9 82 18 113/64 (80) 97 03/16/17 08:00 98.4 81 18 145/67 (93) 95 03/16/17 05:47 98.3 80 20 118/59 (78) 95 03/16/17 03:44 92 03/16/17 00:00 98.8 83 20 116/60 (78) 92 03/16/17 00:00 82 03/15/17 22:10 92 03/15/17 20:00 Room Air 03/15/17 20:00 98.3 97 18 138/65 (89) 97 -: 03/15/17 1155 03/15/17 1155 Physical Exam General Appearance: No Acute Distress, Comfortable Eyes Eye Exam: Pupils Equal Throat Throat Exam: Oral Mucosa [place] & Moist Neck Neck Exam: Neck Supple Pulmonary Resp Exam: Breath Sounds Equal, No Distress, Rhonchi, Decreased Bases Cardiology CV Exam: Regular, Normal Sinus Rhythm Gastrointestinal/Abdomen GI Exam: Soft, Non-Tender, Bowel Sounds Present Extremeties Extremities Exam: Trace Edema (Rt. foot with dressing.) Neurologic Neuro Exam: Alert, Awake, Oriented Psychiatric Psych Exam: Appropriate Responses Assessment/Plan Assessment Summary: Anemia of CKD, Hypertension, Diabetes Mellitus, End Stage Renal Disease Problem List: (1) Anemia ICD Codes: D64.9 - Anemia Status: Acute (2) Diabetes ICD Codes: E11.9 - Diabetes Status: Acute (3) Peripheral neuropathy ICD Codes: G62.9 - Polyneuropathy, unspecified Status: Chronic (4) Hypertension ICD Codes: I10 - Hypertension Status: Acute (5) Osteomyelitis of toe of right foot ICD Codes: M86.9 - Osteomyelitis, unspecified Status: Acute (6) End stage renal disease on dialysis ICD Codes: N18.6 - End stage renal failure on dialysis; Z99.2 - Dependence on renal dialysis Status: Chronic Plan Patient with history of End stage renal disease. HD is on MWF. BP is stable, afebrile. On IV Vanco. with HD and on IV Zosyn. Podiatry consult noted. For amputation of distal toe in AM. HD tomorrow after the surgery. Anatoliy Putnam MD Mar 16, 2017 17:31
[2017-03-16] MEDS: MUPIROCIN 2% CREAM 15 GM TOPICAL SCH ×2 (21:00→21:20)
[2017-03-16] MEDS: FAMOTIDINE 20 MG TAB PO SCH (21:19)
[2017-03-17] VITALS: BP 143/62; PULSE 79; PULSE 81; RESP 20; TEMP 97.4; O2SAT 97
[2017-03-17] MEDS: CHLORHEXIDINE GLUCONATE 2 % 1 PACK (2 CLOTHS) TOP SCH (00:04)
[2017-03-17 04:00] VITALS: BP 142/63; PULSE 84; PULSE 85; RESP 20; TEMP 98.1; O2SAT 95
[2017-03-17] MEDS ORDERED: BUPIVACAINE HCL PF 0.5% 30 ML VIAL ONE (07:21)
[2017-03-17] MEDS ORDERED: OXYC1TAB36 PO (07:37)
[2017-03-17] MEDS ORDERED: CALC667C PO (07:37)
--- NOTE | 2017-03-17 07:38 | HHI.DCPOC ---
Discharge Care Plan Diagnosis: (1) Osteomyelitis of toe of right foot Your Health Problems Are: Difficulty with ADL Exercise Tolerance Goals to Promote Your Health * To prevent worsening of your condition and complications * To maintain your health at the optimal level Directions to Meet Your Goals Take your medications as prescribed Follow your dietary instruction Follow activity as directed Keep your appointments as scheduled Take your immunizations and boosters as scheduled If your symptoms worsen call your PCP, if no PCP go to Urgent Care Center or Emergency Room Smoking is Dangerous to Your Health. Avoid second hand smoke Call the 24-hour hour crisis hotline for domestic abuse at Serg Hwang MD Mar 17, 2017 07:38
[2017-03-17] MEDS: INSULIN ASPART SUPPLEMENTAL SCALE SQ SCH ×4 (07:40→21:27)
[2017-03-17 08:00] VITALS: BP 166/77; PULSE 86; PULSE 87; RESP 20; TEMP 98.2; O2SAT 95
[2017-03-17] MEDS ORDERED: ACETAMINOPHEN 1000 MG/100 ML 100 ML IV ONE (08:30)
[2017-03-17] MEDS ORDERED: SUGAMMADEX SODIUM 200 MG/2 ML VIAL IV PUSH ONE ×2 (08:31)
[2017-03-17] MEDS: ASPIRIN EC 81 MG TABEC PO SCH (09:00)
[2017-03-17] MEDS: MUPIROCIN 2% CREAM 15 GM TOPICAL SCH ×2 (09:00→21:00)
[2017-03-17] MEDS: CALCIUM ACETATE 667 MG CAP PO SCH ×3 (09:00→16:43)
--- NOTE | 2017-03-17 09:27 | PD.OP ---
Operative Report Date of Surgery: Mar 17, 2017 Preoperative Diagnosis: (1) Osteomyelitis of toe of right foot Second toe right foot Postoperative Diagnosis: (1) Osteomyelitis of toe of right foot Second toe right foot Procedure: Partial amputation second toe right foot Anesthesia: General inhalation Surgeon: Tacos Cruz DPM State Manager(s): None Operation and Findings: Patient is brought to the operating room placed on the operating table in the supine position. A pneumatic ankle cuff was placed around the patient's right ankle after adequate web roll padding. Patient was given general inhalation anesthesia. The right foot was prepped and draped in the usual sterile manner. After the appropriate timeout was performed the right foot was elevated above the operating table for a period of 3 minutes at which time the pneumatic ankle cuff was inflated to 250 mmHg. The right foot was lowered to the operating table and attention was directed to the second toe the right foot which was noted to be a mallet toe with an ulceration to bone at the distal tip. Preoperative radiographs showed breakdown of the distal tuft of the distal phalanx consistent with osteomyelitis. At this time a fishmouth incisions were made dorsally and plantarly of the second toe at the level of the proximal interphalangeal joint. The incision was deepened using sharp and blunt dissection and using a bone-cutting forceps the head of the proximal phalanx was transected and the distal toe was removed from the wound. The area is flushed with copious amounts of sterile saline. Subcutaneous tissue was reapproximated and closed with 3-0 Vicryl. Skin edges were reapproximated and closed with 3-0 nylon. The area was anesthetized with 8 cc of 0.5% Marcaine. The foot was dressed with Adaptic 4 x 4's and Brandon. The pneumatic ankle cuff was deflated and should be noted the vascular status returned to the remaining digits of the right foot. Estimated blood loss was less than 5 cc. Sponge and instrument counts were noted to be correct. The distal toe and phalanx were sent to pathology for gross and micro-. Patient tolerated the procedures and anesthesia well and left the OR to PACU in apparent satisfactory condition with all vital signs stable endovascular status intact to the right foot. Tacos Cruz DPM Mar 17, 2017 09:27
[2017-03-17] MEDS ORDERED: ACETAMINOPHEN/HYDROcodone 325 MG/5 MG TAB PO PRN (09:30)
[2017-03-17] MEDS ORDERED: Post-op Orders (for Pharmacy) XX ONE (09:30)
[2017-03-17] MEDS ORDERED: NALOXONE HCL 0.4 MG/ML AMP IV PUSH PRN (09:30)
[2017-03-17] MEDS ORDERED: ACETAMINOPHEN 325 MG TAB PO PRN (09:30)
[2017-03-17] MEDS ORDERED: ACETAMINOPHEN/HYDROcodone 325 MG/7.5 MG TAB PO PRN (09:30)
[2017-03-17] MEDS ORDERED: SODIUM CHLORIDE 0.9% FLUSH 10 ML FLUSH IV FLUSH PRN (09:30)
[2017-03-17] MEDS ORDERED: DO NOT ADM ANY ANTICOAGULANT DRUGS PRN (10:15)
[2017-03-17] MEDS ORDERED: *morphine SULFATE 4 MG/ML PERIprocedure ONLY ONE (10:18)
[2017-03-17] MEDS ORDERED: VANCOMYCIN INJ 1,500 MG in SODIUM CHLORID 0.9% 500 ML INJ 500 ML IV SCH (10:30)
--- NOTE | 2017-03-17 10:31 | RADRPT ---
EXAM DATE/TIME: 03/17/2017 09:53 [facility] COMPARISON: FOOT RIGHT COMPLETE ([id number]), July 21, 2016, 12:06. INDICATIONS : Post operative, partial second digit amputation. MEDICAL HISTORY : None. Diabetes mellitus type 2. Hepatitis C. Hypertension. SURGICAL HISTORY : None. Amputation of the first digit distal to the mid shaft of the first metatarsal. ENCOUNTER: Initial ACUITY: 1 day PAIN SCORE: Non-responsive. LOCATION: Right foot, second digit. FINDINGS: Status post first transmetatarsal amputation and amputation distal tuft of second toe. Gas present i n soft tissues. CONCLUSION: Postsurgical changes as above. Roverto Jefferson MD FACR on March 17, 2017 at 10:29 Board Certified Radiologist. This report was verified electronically.
--- NOTE | 2017-03-17 12:09 | HHI.NPPN ---
Subjective General Problems: Anemia, Edema, Hypertension Renal Failure: End Stage Renal Disease History of Present Illness 56-year-old male known to me from before with past medical history of hypertension, diabetes mellitus, hyperlipidemia, history of hepatitis C, diabetic neuropathy, history of diabetic foot with right great toe amputation, end-stage renal disease on hemodialysis three times per week, history of chronic anemia who came to the hospital with complaint of right foot pain. I was called to see the patient for the management of dialysis. The patient has been on hemodialysis Saturday, Saturday and Saturday. Additional Remarks Patient is sleepy after the surgery, wake up, mild nausea, now on HD. Objective Data Data 03/17/17 03/18/17 19:00 07:00 Intake Total 100 ml Balance 100 ml Other 100 ml Vital Signs Date Time Temp Pulse Resp B/P (MAP) Pulse Ox O2 Delivery O2 Flow Rate FiO2 03/17/17 10:30 98.4 91 16 165/76 (105) 94 Nasal Cannula 4 03/17/17 10:15 90 16 166/73 (104) 94 Nasal Cannula 4 03/17/17 10:00 89 16 142/63 (89) 99 Simple Mask 7 03/17/17 09:45 98.4 03/17/17 09:45 98.4 102 16 172/79 (110) 99 Simple Mask 10 03/17/17 08:00 86 03/17/17 08:00 98.2 87 20 166/77 (106) 95 03/17/17 04:00 84 03/17/17 04:00 98.1 85 20 142/63 (89) 95 03/17/17 00:00 79 03/17/17 00:00 97.4 81 20 143/62 (89) 97 03/16/17 20:00 Room Air 03/16/17 20:00 97.1 83 20 154/68 (96) 97 03/16/17 20:00 78 03/16/17 16:00 82 03/16/17 16:00 98.0 87 18 137/63 (87) 97 -: 03/15/17 1155 03/15/17 1155 Physical Exam General Appearance: No Acute Distress, Comfortable Eyes Eye Exam: Pupils Equal Throat Throat Exam: Oral Mucosa [place] & Moist Neck Neck Exam: Neck Supple Pulmonary Resp Exam: Breath Sounds Equal, No Distress, Rhonchi, Decreased Bases Cardiology CV Exam: Regular, Normal Sinus Rhythm Gastrointestinal/Abdomen GI Exam: Soft, Non-Tender, Bowel Sounds Present Extremeties Extremities Exam: Trace Edema (Rt. foot with dressing.) Neurologic Neuro Exam: Alert, Awake, Oriented Psychiatric Psych Exam: Appropriate Responses Assessment/Plan Assessment Summary: Anemia of CKD, Hypertension, Diabetes Mellitus, End Stage Renal Disease Problem List: (1) Anemia ICD Codes: D64.9 - Anemia Status: Acute (2) Diabetes ICD Codes: E11.9 - Diabetes Status: Acute (3) Peripheral neuropathy ICD Codes: G62.9 - Polyneuropathy, unspecified Status: Chronic (4) Hypertension ICD Codes: I10 - Hypertension Status: Acute (5) Osteomyelitis of toe of right foot ICD Codes: M86.9 - Osteomyelitis, unspecified Status: Acute (6) End stage renal disease on dialysis ICD Codes: N18.6 - End stage renal failure on dialysis; Z99.2 - Dependence on renal dialysis Status: Chronic Plan Patient with history of End stage renal disease. HD is on MWF. BP is stable, afebrile. On IV Vanco. with HD and on IV Zosyn. Podiatry is following.. Post amputation of distal 2nd toe. Blood cultures remain negative. HD now, remove fluid as tolerated. Vanco. with HD, on Epogen. Anatoliy Putnam MD Mar 17, 2017 12:08
[2017-03-17] MEDS: EPOETIN ALFA 10,000 UNITS/ML VIAL IV PUSH PRN (13:55)
[2017-03-17] MEDS: ONDANSETRON HCL 4 MG/2 ML VIAL IV PUSH PRN (13:56)
[2017-03-17] MEDS: DOCUSATE SODIUM 50 MG/SENNA 8.6 MG TAB PO SCH ×2 (14:47→21:00)
[2017-03-17] MEDS: GABAPENTIN 100 MG CAP PO SCH (14:47)
[2017-03-17] MEDS: FAMOTIDINE 20 MG TAB PO SCH ×2 (14:47→21:26)
[2017-03-17] MEDS: VITAMIN B CMPLX/VITC/FOLIC AC CAP PO SCH (14:48)
[2017-03-17] MEDS: SODIUM CHLORIDE 0.9% FLUSH 10 ML FLUSH IV FLUSH SCH ×3 (14:49→21:26)
--- NOTE | 2017-03-17 14:49 | HHI.PR ---
Subjective Remarks Follow-up DFI. Seen in hemodialysis states he vomited earlier. Currently denies any symptoms. Tolerated amputation of right second toe. Seen with RN Objective Vitals Vital Signs Date Time Temp Pulse Resp B/P (MAP) Pulse Ox O2 Delivery O2 Flow Rate FiO2 03/17/17 10:30 98.4 91 16 165/76 (105) 94 Nasal Cannula 4 03/17/17 10:15 90 16 166/73 (104) 94 Nasal Cannula 4 03/17/17 10:00 89 16 142/63 (89) 99 Simple Mask 7 03/17/17 09:45 98.4 03/17/17 09:45 98.4 102 16 172/79 (110) 99 Simple Mask 10 03/17/17 08:00 86 03/17/17 08:00 98.2 87 20 166/77 (106) 95 03/17/17 04:00 84 03/17/17 04:00 98.1 85 20 142/63 (89) 95 03/17/17 00:00 79 03/17/17 00:00 97.4 81 20 143/62 (89) 97 03/16/17 20:00 Room Air 03/16/17 20:00 97.1 83 20 154/68 (96) 97 03/16/17 20:00 78 03/16/17 16:00 82 03/16/17 16:00 98.0 87 18 137/63 (87) 97 I/O 03/16/17 03/16/17 03/16/17 03/17/17 03/17/17 03/17/17 07:00 15:00 23:00 07:00 15:00 23:00 Intake Total 120 ml 570 ml 360 ml 100 ml Output Total 800 ml 3000 ml Balance 120 ml -230 ml 360 ml -2900 ml Intake Oral 120 ml 520 ml 360 ml IV Total 50 ml Other 100 ml Output Urine Total 800 ml Hemodialysis 3000 ml # Voids 1 2 # Bowel Movements 1 0 Result Diagram: 03/15/17 1155 03/15/17 1155 Objective Remarks GENERAL: This is a well-nourished, well-developed patient, in no apparent distress. SKIN: No rashes, ecchymoses or lesions. Cool and dry. Right foot with dry dressing CARDIOVASCULAR: Regular rate and rhythm without murmurs, gallops, or rubs. S1 and S2 no S3 or S4 RESPIRATORY: Clear to auscultation. Breath sounds equal bilaterally. No wheezes , rales, or rhonchi. GASTROINTESTINAL: Abdomen soft, non-tender, nondistended. No guarding. Morbidly obese MUSCULOSKELETAL: Extremities without clubbing, cyanosis, or edema. No joint tenderness, effusion, or edema noted. No calf tenderness. Negative Homans sign bilaterally. Left upper extremity AV fistula with good thrill and bruit. NEUROLOGICAL: Awake and alert. Cranial nerves II through XII intact. Motor and sensory grossly within normal limits. Five out of 5 muscle strength in all muscle groups. Normal speech. Procedures PICC, partial amputation of the right second toe A/P Problem List: (1) MRSA infection ICD Code: A49.02 - Methicillin resistant Staphylococcus aureus infection, unspecified site Status: Acute (2) Osteomyelitis of toe of right foot ICD Code: M86.9 - Osteomyelitis, unspecified Status: Acute (3) Peripheral neuropathy ICD Code: G62.9 - Polyneuropathy, unspecified Status: Chronic (4) End stage renal disease on dialysis ICD Code: N18.6 - End stage renal failure on dialysis; Z99.2 - Dependence on renal dialysis Status: Chronic (5) Diabetic foot ulcer ICD Code: E11.621 - Type 2 diabetes mellitus with foot ulcer; L97.509 - Non- pressure chronic ulcer of other part of unspecified foot with unspecified severity Status: Acute (6) Ulcer of right foot with fat layer exposed ICD Code: L97.512 - Non-pressure chronic ulcer of other part of right foot with fat layer exposed Status: Resolved (7) Hypertension ICD Code: I10 - Hypertension Status: Acute (8) Anemia ICD Code: D64.9 - Anemia Status: Acute (9) Diabetes ICD Code: E11.9 - Diabetes Status: Acute Assessment and Plan Diabetic foot infection/Right second toe osteomyelitis with history of MRSA. Stable status post amputation right second toe. Continue IV vancomycin during hemodialysis. Wound care. Pain management with Percocet and IV morphine Podiatry and ID consulted End-stage renal disease on hemodialysis Saturday consult nephrology for continued hemodialysis Hypertension resume home medications. Stable Neuropathy continue on gabapentin. Stable Diabetes mellitus. Monitor fingerstick with sliding scale coverage Nausea and vomiting likely related to anesthesia. Supportive treatment and repeat BMP tomorrow DVT prophylaxis with early ambulation. Chemical prophylaxis postoperatively Discharge Planning Possible discharge in the morning Serg Hwang MD Mar 17, 2017 14:49
[2017-03-17 16:00] VITALS: BP 136/63; PULSE 87; RESP 20; TEMP 98; O2SAT 97
[2017-03-17 20:00] VITALS: BP 110/58; PULSE 85; PULSE 89; RESP 21; TEMP 98; O2SAT 97
[2017-03-17 20:20] VITALS: O2SAT 96
[2017-03-18] VITALS: BP 129/68; PULSE 76; PULSE 82; RESP 22; TEMP 98; O2SAT 98
[2017-03-18 03:56] VITALS: PULSE 77
[2017-03-18 04:00] VITALS: BP 137/62; PULSE 78; RESP 19; TEMP 98.2; O2SAT 99
[2017-03-18] MEDS: CHLORHEXIDINE GLUCONATE 2 % 1 PACK (2 CLOTHS) TOP SCH (04:00)
[2017-03-18 06:45] LABS: BICARBONATE 30.4 MEQ/L (21.0-32.0); MAGNESIUM 2.5 MG/DL (1.5-2.5); POTASSIUM 4.5 MEQ/L (3.5-5.1)
[2017-03-18] MEDS: SODIUM CHLORIDE 0.9% FLUSH 10 ML FLUSH IV FLUSH SCH ×2 (07:20→07:21)
[2017-03-18 07:49] VITALS: PULSE 82
[2017-03-18 08:00] VITALS: BP 141/74; PULSE 81; RESP 20; TEMP 98.2; O2SAT 93
[2017-03-18] MEDS: INSULIN ASPART SUPPLEMENTAL SCALE SQ SCH ×2 (08:00→13:11)
[2017-03-18] MEDS: FAMOTIDINE 20 MG TAB PO SCH (08:07)
[2017-03-18] MEDS: VITAMIN B CMPLX/VITC/FOLIC AC CAP PO SCH (08:07)
[2017-03-18] MEDS: GABAPENTIN 100 MG CAP PO SCH (08:07)
[2017-03-18] MEDS: CALCIUM ACETATE 667 MG CAP PO SCH ×2 (08:08→13:11)
[2017-03-18] MEDS: DOCUSATE SODIUM 50 MG/SENNA 8.6 MG TAB PO SCH (08:08)
[2017-03-18] MEDS: ONDANSETRON HCL 4 MG/2 ML VIAL IV PUSH PRN (08:08)
[2017-03-18] MEDS: ASPIRIN EC 81 MG TABEC PO SCH (08:08)
[2017-03-18] MEDS: MUPIROCIN 2% CREAM 15 GM TOPICAL SCH (08:09)
[2017-03-18] MEDS ORDERED: PILL SPLITTER OTHER PRN (10:30)
--- NOTE | 2017-03-18 11:09 | PD.POD ---
Subjective Podiatric Problems Osteomyelitis second toe right foot Pain scale used: 0-10 numeric scale Pain score: 1 Remarks 56-year-old male on hemodialysis who presented with a ulceration at distal tip of the second toe right foot. Radiographs showed osteomyelitis. Patient had a severe mallet toe deformity. He previously underwent amputation of the first ray of the right foot for osteomyelitis. Patient was taken to the operating room yesterday and a partial amputation of the second toe was performed. Amputation was performed at the mid proximal phalanx level. Patient without pain or discomfort. Patient seen by infectious disease. Past Med/Surg/Social History Past Medical History HEENT: REPORTS HX OF: Cataracts Endocrine: REPORTS HX OF: Diabetes mellitus Cardiovascular: REPORTS HX OF: Hyperlipidemia, Hypertension Genitourinary: REPORTS HX OF: Hemodialysis, Kidney failure (stage 5) Infectious disease: REPORTS HX OF: Chickenpox (as a child), Measles (as a child ), Mumps (as a child) Neurologic: REPORTS HX OF: Peripheral neuropathy Disabilities: REPORTS HX OF: Vision deficit (reading glasses) Past Surgical History HEENT: REPORTS HX OF: Cataract extraction Gastrointestinal: REPORTS HX OF: Colectomy, total Genitourinary: REPORTS HX OF: Other surgery Musculoskeletal: REPORTS HX OF: Other musculoskeletal srg (amputation of the right hallux) Social History Smoking Status: Never Smoker Review of Systems Notes Bony changes to his 14 point review of systems exam since yesterday was the amputation of the second toe. Patient underwent hemodialysis yesterday. Objective Vital Signs Vital Signs Date Time Temp Pulse Resp B/P (MAP) Pulse Ox O2 Delivery O2 Flow Rate FiO2 03/18/17 08:25 Room Air 21 03/18/17 08:00 98.2 81 20 141/74 (96) 93 03/18/17 04:00 98.2 78 19 137/62 (87) 99 03/18/17 03:56 77 03/18/17 00:00 98.0 76 22 129/68 (88) 98 03/18/17 00:00 82 03/17/17 20:20 96 Nasal Cannula 2.00 03/17/17 20:00 85 03/17/17 20:00 98.0 89 21 110/58 (75) 97 03/17/17 20:00 Room Air 03/17/17 17:35 Nasal Cannula 3.00 03/17/17 16:00 98.0 87 20 136/63 (87) 97 03/17/17 14:37 Nasal Cannula 3.00 Coded Allergies: amlodipine (Verified Allergy, Severe, Blurred Vision, lightheaded, nausea , 03/15/17) metoprolol (Verified Allergy, Severe, Blurred Vision, lightheadedness, nausea, 03/15/17) *MDRO Multi-Drug Resistant Organism (Verified Adverse Reaction, Unknown, 02/11/17) MRSA (wounds) - 2005; (foot) - 12/22/15, 01/12/16, 05/01/16, 07/03/16, 08/09/16, 09/04/16, 10/16/16 Medications and IVs Current Medications Sodium Chloride 1,000 ml @ 0 mls/hr Q0M PRN OTHER For Prime & Rinse Back; Start 03/15/17 at 13:23 Heparin Sodium (Porcine) (Heparin Inj) 8,000 units UNSCH PRN IV FLUSH WITH DIALYSIS; Start 03/15/17 at 13:30 Sodium Chloride 1,000 ml @ 200 mls/hr Q5H PRN IV WITH DIALYSIS; Start at 13:23 Sodium Chloride 1,000 ml @ 0 mls/hr Q0M PRN OTHER WITH DIALYSIS; Start at 13:23 Mannitol (Mannitol Inj) 12.5 gm UNSCH PRN IV WITH DIALYSIS; Start 03/15/17 at 13:30 Albumin Human 100 ml @ 60 mls/hr UNSCH PRN IV WITH DIALYSIS; Start 03/15/17 at 13:30 Sodium Chloride (NS Flush) 5 ml UNSCH PRN IV FLUSH WITH DIALYSIS; Start at 13:30 Heparin Sodium (Porcine) (Heparin Inj) UNSCH PRN .XX WITH DIALYSIS; Start at 13:30 Gentamicin Sulfate (Gentamicin (Dialysis) Inj) 20 mg UNSCH PRN OTHER WITH DIALYSIS; Start 03/15/17 at 13:30 Ondansetron HCl (Zofran Inj) 4 mg UNSCH PRN IV PUSH WITH DIALYSIS Last administered on 03/18/17 08:08; Start 03/15/17 at 13:30 Acetaminophen (Tylenol) 650 mg UNSCH PRN PO for headach, pain, temp > 101F Last administered on 03/15/17 22:33; Start 03/15/17 at 13:30 Diphenhydramine HCl (Benadryl) 25 mg UNSCH PRN PO for hives/itching/anaphylaxis ; Start 03/15/17 at 13:30 Nitroglycerin (Nitrostat Sl) 0.4 mg UNSCH PRN SL CHEST PAIN; Start 03/15/17 at 13:30 Clonidine (Catapres) 0.1 mg UNSCH PRN PO for BP > 180/100 X 2 readings; Start 03/15/17 at 13:30 Epoetin Chris (Epogen Inj) 6,000 units UNSCH PRN IV PUSH WITH DIALYSIS Last administered on 03/17/17 13:55; Start 03/15/17 at 13:30 Gelatin (Gelfoam 12 Mm/7 Mm Top) 1 foam UNSCH PRN TOP SEE LABEL COMMENTS; Start 03/15/17 at 13:30 Aspirin (Ecotrin Ec) 81 mg DAILY PO Last administered on 03/18/17 08:08; Start 03/16/17 at 09:00 Gabapentin (Neurontin) 200 mg Q24H PO Last administered on 03/18/17 08:07; Start 03/16/17 at 09:00 Sodium Chloride (NS Flush) 2 ml UNSCH PRN IV FLUSH FLUSH AFTER USING IV ACCESS ; Start 03/15/17 at 14:30 Sodium Chloride (NS Flush) 2 ml BID IV FLUSH Last administered on 03/18/17 07 :20; Start 03/15/17 at 21:00 Acetaminophen (Tylenol) 650 mg Q4H PRN PO TEMP > 100.4; Start 03/15/17 at 14: 30 Ondansetron HCl (Zofran Inj) 4 mg Q6H PRN IVP NAUSEA OR VOMITING Last administered on 03/17/17 23:01; Start 03/15/17 at 14:30 Prochlorperazine (Compazine Supp) 25 mg Q12H PRN RECTAL NAUSEA OR VOMITING; Start 03/15/17 at 14:30 Acetaminophen (Tylenol) 650 mg Q6H PRN PO PAIN SCALE 1 TO 2 Last administered on 03/17/17 15:28; Start 03/15/17 at 14:30 Oxycodone/ Acetaminophen (Percocet 5-325 Mg) 1 tab Q6H PRN PO PAIN SCALE 3 TO 5; Start 03/15/17 at 14:30 Oxycodone/ Acetaminophen (Percocet 10-325 Mg) 1 tab Q6H PRN PO PAIN SCALE 6 TO 10 Last administered on 03/17/17 19:04; Start 03/15/17 at 14:30 Morphine Sulfate (Morphine Inj) 2 mg Q3H PRN IV PUSH Pain 3-5; if unable to take PO; Start 03/15/17 at 14:30 Morphine Sulfate (Morphine Inj) 4 mg Q3H PRN IV PUSH Pain 6-10;if unable to take PO; Start 03/15/17 at 14:30 Naloxone HCl (Narcan Inj) 0.4 mg UNSCH PRN IV PUSH SEE LABEL COMMENTS; Start 03/15/17 at 14:30 Senna/Docusate Sodium (Eli-Colace) 1 tab BID PO Last administered on 08:08; Start 03/15/17 at 21:00 Magnesium Hydroxide (Milk Of Magnesia Liq) 30 ml Q12H PRN PO Mild constipation ; Start 03/15/17 at 14:30 Sennosides (Senokot) 17.2 mg Q12H PRN PO Moderate constipation; Start at 14:30 Bisacodyl (Dulcolax Supp) 10 mg DAILY PRN RECTAL SEVERE CONSITIPATION; Start 03/15/17 at 14:30 Lactulose (Lactulose Liq) 30 ml DAILY PRN PO SEVERE CONSITIPATION; Start 03/15 at 14:30 Vancomycin HCl 1000 mg/Sodium Chloride 250 ml @ 250 mls/hr Q12H IV ; Start at 14:30; Stop 03/15/17 at 15:06; Status DC Piperacillin Sod/ Tazobactam Sod 50 ml @ 100 mls/hr Q12H IV ; Start 03/15/17 at 16:00; Status Cancel Pharmacy Profile Note 0 ml @ 0 mls/hr UNSCH OTHER ; Start 03/15/17 at 14:30; Stop 03/15/17 at 15:17; Status DC Miscellaneous Information 1 Q361D XX ; Start 03/15/17 at 14:30 Chlorhexidine Gluconate (Chlorhexidine 2% Cloth) 3 pack Taper DAILY@04 TOP Last administered on 03/16/17 04:00; Start 03/16/17 at 04:00; Stop 03/12/18 at 03:59 Chlorhexidine Gluconate (Chlorhexidine 2% Cloth) 3 pack UNSCH PRN TOP HYGIENIC CARE; Start 03/15/17 at 14:30 Insulin Aspart (NovoLOG SUPPLEMENTAL SCALE) 1 ACHS SLIDING SCALE SQ Last administered on 03/17/17 21:27; Start 03/15/17 at 17:00 Dextrose (D50w (Vial) Inj) 50 ml UNSCH PRN IV PUSH HYPOGLYCEMIA-SEE COMMENTS; Start 03/15/17 at 14:30 Glucagon (Glucagon Inj) 1 mg UNSCH PRN OTHER HYPOGLYCEMIA-SEE COMMENTS; Start 03/15/17 at 14:30 Vancomycin HCl 1000 mg/Sodium Chloride 250 ml @ 250 mls/hr ONCE ONCE IV ; Start 03/16/17 at 14:30; Stop 03/16/17 at 15:29; Status UNV Vancomycin HCl 1500 mg/Sodium Chloride 250 ml @ 250 mls/hr WITH DIALYSIS IV Last administered on 03/15/17 16:36; Start 03/15/17 at 15:15; Stop 03/17/17 at 10:19; Status DC Calcium Acetate (Phoslo) 2,001 mg TID PO Last administered on 03/18/17 08:08 ; Start 03/15/17 at 18:00 Vitamin B Complex/ Vit C/Folic Acid (Nephrocaps) 1 cap DAILY PO Last administered on 03/18/17 08:07; Start 03/15/17 at 18:00 Famotidine (Pepcid Inj) 10 mg Q12H IV PUSH Last administered on 03/16/17 05: 52; Start 03/15/17 at 18:00; Stop 03/16/17 at 08:54; Status DC Heparin Sodium (Porcine) (*HEPARIN CENTRAL FLUSH PERIprocedural ONLY) 500 units STK-MED ONCE IV FLUSH Last administered on 03/15/17 18:37; Start 03/15/17 at 18:37; Stop 03/15/17 at 18:38; Status DC Piperacillin Sod/ Tazobactam Sod 50 ml @ 100 mls/hr Q12H IV Last administered on 03/16/17 21:19; Start 03/15/17 at 21:00; Stop 03/17/17 at 13:06; Status DC Mupirocin (Bactroban 2% Cream) 1 applic Q12HR TOPICAL Last administered on 08:09; Start 03/16/17 at 13:00 Famotidine (Pepcid) 20 mg BID PO Last administered on 03/18/17 08:07; Start 03/16/17 at 21:00; Stop 03/18/17 at 10:27; Status DC Bupivacaine HCl (Marcaine Pf 0.5% Inj) 30 ml STK-MED ONCE .ROUTE Last administered on 03/17/17 08:49; Start 03/17/17 at 07:21; Stop 03/17/17 at 07 :22; Status DC Acetaminophen 100 ml @ As Directed STK-MED ONCE IV ; Start 03/17/17 at 08:30; Stop 03/17/17 at 08:31; Status DC Sugammadex Sodium ([place]ion Inj) 200 mg STK-MED ONCE IV PUSH ; Start 03/17/17 at 08:31; Stop 03/17/17 at 08:32; Status DC Sodium Chloride (NS Flush) 2 ml UNSCH PRN IV FLUSH FLUSH AFTER USING IV ACCESS ; Start 03/17/17 at 09:30 Sodium Chloride (NS Flush) 2 ml BID IV FLUSH Last administered on 03/18/17 07 :21; Start 03/17/17 at 21:00 Miscellaneous Information (Post-op Orders (for Pharmacy)) STAT ONCE XX ; Start 03/17/17 at 09:30; Stop 03/17/17 at 09:50; Status DC Acetaminophen (Tylenol) 650 mg Q6H PRN PO PAIN SCALE 1 TO 2; Start 03/17/17 at 09:30; Stop 03/17/17 at 13:06; Status DC Acetaminophen/ Hydrocodone Bitart ([place] 5-325 Mg) 1 tab Q4H PRN PO PAIN SCALE 3 TO 5; Start 03/17/17 at 09:30; Stop 03/17/17 at 13:06; Status DC Acetaminophen/ Hydrocodone Bitart ([place] 7.5-325 Mg) 1 tab Q4H PRN PO PAIN SCALE 6 TO 10; Start 03/17/17 at 09:30; Stop 03/17/17 at 13:06; Status DC Naloxone HCl (Narcan Inj) 0.4 mg UNSCH PRN IV PUSH SEE LABEL COMMENTS; Start 03/17/17 at 09:30; Stop 03/17/17 at 13:08; Status DC Miscellaneous Information ALL NURSING DEPARTME... UNSCH PRN .XX SEE LABEL COMMENTS; Start 03/17/17 at 10:15; Stop 03/18/17 at 10:14; Status DC Morphine Sulfate (*morphine INJ PERIprocedure ONLY) 4 mg STK-MED ONCE .ROUTE Last administered on 03/17/17 10:18; Start 03/17/17 at 10:18; Stop 03/17/17 at 10:19; Status DC Vancomycin HCl 1500 mg/Sodium Chloride 500 ml @ 250 mls/hr WITH DIALYSIS IV Last administered on 03/17/17 13:55; Start 03/17/17 at 10:30 Famotidine (Pepcid) 10 mg Q12HR PO ; Start 03/18/17 at 21:00 Miscellaneous (Pill Splitter) 1 ea UNSCH PRN OTHER SEE LABEL COMMENTS; Start 03/18/17 at 10:30 Other Results Last Impressions Foot X-Ray 03/17/17 0000 Signed Impressions: Service Date/Time: Friday, March 17, 2017 09:53 - CONCLUSION: Postsurgical changes as above. Roverto Jefferson MD FACR Chest X-Ray 03/16/17 0000 Signed Impressions: Service Date/Time: Thursday, March 16, 2017 16:02 - CONCLUSION: Low lung volumes. Left IJ central venous catheter. No acute cardiopulmonary disease identified. Ramsey Parham MD PICC Line Insertion 03/15/17 0000 Signed Impressions: Service Date/Time: Wednesday, March 15, 2017 16:55 - CONCLUSION: 1. Uncomplicated central venous cuffed IJ Power PICC line placement. 2. The PICC line can be used immediately. Ok Sosa MD Laboratory Tests Test 03/18/17 06:20 Blood Urea Nitrogen 86 MG/DL Creatinine 13.41 MG/DL Random Glucose 105 MG/DL Calcium Level 8.9 MG/DL Magnesium Level 2.5 MG/DL Sodium Level 139 MEQ/L Potassium Level 4.5 MEQ/L Chloride Level 99 MEQ/L Carbon Dioxide Level 30.4 MEQ/L Anion Gap 10 MEQ/L Estimat Glomerular Filtration Rate 5 ML/MIN Microbiology Date/Time Source Procedure Growth Status 03/15/17 12:00 Blood Peripheral Aerobic Blood Culture - Preliminary NO GROWTH IN 3 DAYS Resulted 03/15/17 12:00 Blood Peripheral Anaerobic Blood Culture - Preliminary NO GROWTH IN 3 DAYS Resulted 03/15/17 11:55 Blood Peripheral Aerobic Blood Culture - Preliminary NO GROWTH IN 3 DAYS Resulted 03/15/17 11:55 Blood Peripheral Anaerobic Blood Culture - Preliminary NO GROWTH IN 3 DAYS Resulted Exam-Podiatry Constitutional General appearance: comfortable Nutritional status: overweight Orientation: alert and oriented x3 Dermatological Exam Skin Temp - Right: Within Normal Limits Skin Texture - Right: Within Normal Limits Skin Elasticity - Right: Within Normal Limits Skin Tugor - Right: Within Normal Limits Hair Growth - Right: Within Normal Limits Pigmentation - Right: Within Normal Limits Skin Temp - Left: Within Normal Limits Skin Texture - Left: Within Normal Limits Skin Elasticity - Left: Within Normal Limits Skin Tugor - Left: Within Normal Limits Hair Growth - Left: Within Normal Limits Pigmentation - Left: Within Normal Limits Other: Scars, Surgery,Injury Dressing right foot dry and intact. No break through bleeding noted. Remaining toes are warm, pink and katherine upon compression. Vascular/Lymphatic Exam R Dorsails Pedis: Palpable L Dorsails Pedis: Palpable R Posterior Tibial: Palpable L Posterior Tibial: Palpable Neurologic Exam Present on right: Tingling, Paraesthesia Present on left: Tingling, Paraesthesia Musculoskeletal Exam Details Amputation of the first ray and partial second toe right foot Muscle Strength Dorsiflexion (Right): Normal Plantarflexion (Right): Normal Inversion (Right): Normal Eversion (Right): Normal Digital (Right): Normal Dorsiflexion (Left): Normal Plantarflexion (Left): Normal Inversion (Left): Normal Eversion (Left): Normal Digital (Left): Normal Foot Range of Motion Dorsiflexion (Right): Normal Plantarflexion (Right): Normal Inversion (Right): Normal Eversion (Right): Normal Digital (Right): Normal Dorsiflexion (Left): Normal Plantarflexion (Left): Normal Inversion (Left): Normal Eversion (Left): Normal Digital (Left): Normal Assessment & Plan Diagnosis: (1) Osteomyelitis of toe of right foot ICD Codes: M86.9 - Osteomyelitis, unspecified Status: Resolved A/P PLAN: Patient may be discharged home today weight bearing with postop shoe. Follow- up in my office on Saturday. Discussed with Dr. Pineda and Dr. Moseley from infectious disease. Tacos Cruz DPM Mar 18, 2017 11:09
--- NOTE | 2017-03-18 11:43 | HHI.NPPN ---
Subjective General Problems: Anemia, Edema, Hypertension Renal Failure: End Stage Renal Disease History of Present Illness 56-year-old male known to me from before with past medical history of hypertension, diabetes mellitus, hyperlipidemia, history of hepatitis C, diabetic neuropathy, history of diabetic foot with right great toe amputation, end-stage renal disease on hemodialysis three times per week, history of chronic anemia who came to the hospital with complaint of right foot pain. I was called to see the patient for the management of dialysis. The patient has been on hemodialysis Saturday, Saturday and Saturday. Additional Remarks Patient is sleepy after the surgery, wake up, mild nausea, now on HD. Objective Data Data Vital Signs Date Time Temp Pulse Resp B/P (MAP) Pulse Ox O2 Delivery O2 Flow Rate FiO2 03/18/17 08:25 Room Air 21 03/18/17 08:00 98.2 81 20 141/74 (96) 93 03/18/17 04:00 98.2 78 19 137/62 (87) 99 03/18/17 03:56 77 03/18/17 00:00 98.0 76 22 129/68 (88) 98 03/18/17 00:00 82 03/17/17 20:20 96 Nasal Cannula 2.00 03/17/17 20:00 85 03/17/17 20:00 98.0 89 21 110/58 (75) 97 03/17/17 20:00 Room Air 03/17/17 17:35 Nasal Cannula 3.00 03/17/17 16:00 98.0 87 20 136/63 (87) 97 03/17/17 14:37 Nasal Cannula 3.00 -: 03/15/17 1155 03/18/17 0620 Physical Exam General Appearance: No Acute Distress, Comfortable Eyes Eye Exam: Pupils Equal Throat Throat Exam: Oral Mucosa [place] & Moist Neck Neck Exam: Neck Supple Pulmonary Resp Exam: Breath Sounds Equal, No Distress, Rhonchi, Decreased Bases Cardiology CV Exam: Regular, Normal Sinus Rhythm Gastrointestinal/Abdomen GI Exam: Soft, Non-Tender, Bowel Sounds Present Extremeties Extremities Exam: Trace Edema (Rt. foot with dressing.) Neurologic Neuro Exam: Alert, Awake, Oriented Psychiatric Psych Exam: Appropriate Responses Assessment/Plan Assessment Summary: Anemia of CKD, Hypertension, Diabetes Mellitus, End Stage Renal Disease Problem List: (1) Anemia ICD Codes: D64.9 - Anemia Status: Acute (2) Diabetes ICD Codes: E11.9 - Diabetes Status: Acute (3) Peripheral neuropathy ICD Codes: G62.9 - Polyneuropathy, unspecified Status: Chronic (4) Hypertension ICD Codes: I10 - Hypertension Status: Acute (5) Osteomyelitis of toe of right foot ICD Codes: M86.9 - Osteomyelitis, unspecified Status: Resolved (6) End stage renal disease on dialysis ICD Codes: N18.6 - End stage renal failure on dialysis; Z99.2 - Dependence on renal dialysis Status: Chronic Plan Patient with history of End stage renal disease. HD is on MWF. BP is stable, afebrile. On IV Vanco. with HD and on IV Zosyn. Podiatry is following.. Post amputation of distal 2nd toe. Blood cultures remain negative. HD now, remove fluid as tolerated. Vanco. with HD, on Epogen. Anatoliy Putnam MD Mar 18, 2017 11:43
[2017-03-18 12:00] VITALS: BP 124/68; PULSE 78; RESP 18; TEMP 97.9; O2SAT 95
--- NOTE | 2017-03-18 12:09 | HHI.IDPN ---
Note Infectious Disease Note Patient feels okay. No complaints. Afebrile. Post resection of 2nd r. toe PIP. PAST MEDICAL HISTORY: 1. Hypertension. 2. Hepatitis C. 3. Hyperlipidemia. 4. Diabetic neuropathy. 5. Diabetes mellitus. 6. AV fistula left upper extremity. ALLERGIES: 1. METOPROLOL. 2. AMLODIPINE. MEDICATIONS: Vancomycin. SOCIAL HISTORY: No tobacco. No alcohol. No illicit drugs. 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 FAMILY HISTORY: Noncontributory. OBJECTIVE: Vital Signs Date Time Temp Pulse Resp B/P (MAP) Pulse Ox O2 Delivery O2 Flow Rate FiO2 03/18/17 08:25 Room Air 21 03/18/17 08:00 98.2 81 20 141/74 (96) 93 03/18/17 04:00 98.2 78 19 137/62 (87) 99 03/18/17 03:56 77 03/18/17 00:00 98.0 76 22 129/68 (88) 98 03/18/17 00:00 82 03/17/17 20:20 96 Nasal Cannula 2.00 03/17/17 20:00 85 03/17/17 20:00 98.0 89 21 110/58 (75) 97 03/17/17 20:00 Room Air 03/17/17 17:35 Nasal Cannula 3.00 03/17/17 16:00 98.0 87 20 136/63 (87) 97 03/17/17 14:37 Nasal Cannula 3.00 Laboratory Tests Test 03/18/17 06:20 Blood Urea Nitrogen 86 MG/DL Creatinine 13.41 MG/DL Random Glucose 105 MG/DL Calcium Level 8.9 MG/DL Magnesium Level 2.5 MG/DL Sodium Level 139 MEQ/L Potassium Level 4.5 MEQ/L Chloride Level 99 MEQ/L Carbon Dioxide Level 30.4 MEQ/L Anion Gap 10 MEQ/L Estimat Glomerular Filtration Rate 5 ML/MIN IMAGING: Foot X-Ray 03/17/17 0000 Signed Impressions: Service Date/Time: Friday, March 17, 2017 09:53 - CONCLUSION: Postsurgical changes as above. Roverto Jefferson MD FACR Chest X-Ray 03/16/17 0000 Signed Impressions: Service Date/Time: Thursday, March 16, 2017 16:02 - CONCLUSION: Low lung volumes. Left IJ central venous catheter. No acute cardiopulmonary disease identified. Ramsey Parham MD PICC Line Insertion 03/15/17 0000 Signed Impressions: Service Date/Time: Wednesday, March 15, 2017 16:55 - CONCLUSION: 1. Uncomplicated central venous cuffed IJ Power PICC line placement. 2. The PICC line can be used immediately. Ok Sosa MD PHYSICAL EXAMINATION: GENERAL: No acute distress. He is awake and alert and oriented. HEAD, EYES, EARS, NOSE, THROAT: Extraocular movements grossly intact. Pupils reactive to light. No icterus. Oropharynx with moist mucosa without lesions. NECK: The neck is supple without adenopathy. LUNGS: Clear to auscultation. HEART: Regular rate and rhythm. No murmurs. No rubs. No gallops. ABDOMEN: Bowel sounds present, obese, soft, nontender. EXTREMITIES: Dressing at the r. foot post op. No drainage. SKIN: No diffuse rash. NEUROLOGIC: Nonfocal. PSYCHIATRIC: The patient is calm and cooperative. IMPRESSION: Osteomyelitis of the r. 2nd toe. Post resection. Path positive. No osteo at resected margin. History of diabetes mellitus. End-stage kidney disease on hemodialysis. RECOMMENDATIONS: Okay to discharge on PO doxycycline x 3 days. from ID standpoint. Leroy Vilchis MD Mar 18, 2017 12:09
[2017-03-18] MEDS ORDERED: DOXY100C PO (12:10)
[2017-03-18] MEDS ORDERED: FAMO20TA2 PO (12:27)
--- NOTE | 2017-03-18 15:19 | HHI.DS ---
Discharge Summary Admission Date Mar 15, 2017 at 14:02 Discharge Date: Mar 18, 2017 Admitting Diagnosis osteomyelitis, right 2nd toe (1) MRSA infection ICD Code: A49.02 - Methicillin resistant Staphylococcus aureus infection, unspecified site Diagnosis: Principal Status: Acute (2) Osteomyelitis of toe of right foot ICD Code: M86.9 - Osteomyelitis, unspecified Diagnosis: Principal Status: Resolved (3) Peripheral neuropathy ICD Code: G62.9 - Polyneuropathy, unspecified Diagnosis: Secondary Status: Chronic (4) End stage renal disease on dialysis ICD Code: N18.6 - End stage renal failure on dialysis; Z99.2 - Dependence on renal dialysis Diagnosis: Principal Status: Chronic (5) Diabetic foot ulcer ICD Code: E11.621 - Type 2 diabetes mellitus with foot ulcer; L97.509 - Non- pressure chronic ulcer of other part of unspecified foot with unspecified severity Status: Acute (6) Ulcer of right foot with fat layer exposed ICD Code: L97.512 - Non-pressure chronic ulcer of other part of right foot with fat layer exposed Diagnosis: Principal Status: Resolved (7) Hypertension ICD Code: I10 - Hypertension Diagnosis: Secondary Status: Acute (8) Anemia ICD Code: D64.9 - Anemia Status: Acute (9) Diabetes ICD Code: E11.9 - Diabetes Diagnosis: Principal Status: Acute Procedures PICC, partial amputation of the right second toe Brief History - From Admission Patient is a 56-year-old gentleman with history of diabetes and end-stage renal disease and hypertension and history of right foot great toe amputation represents the emergency department concerned about an open wound on his right second toe. Patient states he notices when this morning after stepping out of the shower. Patient states he has no pain but does have a history of amputation and therefore was concerned about infection. Patient states that this morning and changing his socks frequently throughout the day and trying to perform foot checks but found this today. Patient normally follows with Dr. Cruz and his last checkup was in January. Patient states that he had his first toe amputated on the right foot because of infection suspect he has a history of MRSA denies any fevers or chills denies any nausea vomiting or diarrhea denies any urinary symptoms. No other complaints CBC/BMP: 03/15/17 1155 03/18/17 0620 Significant Findings Laboratory Tests Test 03/16/17 00:36 03/16/17 13:35 03/18/17 06:20 Blood Urea Nitrogen 86 MG/DL (7-18) Creatinine 13.41 MG/DL (0.60-1.30) Estimat Glomerular Filtration Rate 5 ML/MIN (>89) Imaging Last Impressions Foot X-Ray 03/17/17 0000 Signed Impressions: Service Date/Time: Friday, March 17, 2017 09:53 - CONCLUSION: Postsurgical changes as above. Roverto Jefferson MD FACR Chest X-Ray 03/16/17 0000 Signed Impressions: Service Date/Time: Thursday, March 16, 2017 16:02 - CONCLUSION: Low lung volumes. Left IJ central venous catheter. No acute cardiopulmonary disease identified. Ramsey Parham MD PICC Line Insertion 03/15/17 0000 Signed Impressions: Service Date/Time: Wednesday, March 15, 2017 16:55 - CONCLUSION: 1. Uncomplicated central venous cuffed IJ Power PICC line placement. 2. The PICC line can be used immediately. Ok Sosa MD PE at Discharge GENERAL: This is a well-nourished, well-developed patient, in no apparent distress. SKIN: No rashes, ecchymoses or lesions. Cool and dry. Right foot with dry dressing CARDIOVASCULAR: Regular rate and rhythm without murmurs, gallops, or rubs. S1 and S2 no S3 or S4 RESPIRATORY: Clear to auscultation. Breath sounds equal bilaterally. No wheezes , rales, or rhonchi. GASTROINTESTINAL: Abdomen soft, non-tender, nondistended. No guarding. Morbidly obese MUSCULOSKELETAL: Extremities without clubbing, cyanosis, or edema. No joint tenderness, effusion, or edema noted. No calf tenderness. Negative Homans sign bilaterally. Left upper extremity AV fistula with good thrill and bruit. NEUROLOGICAL: Awake and alert. Cranial nerves II through XII intact. Motor and sensory grossly within normal limits. Five out of 5 muscle strength in all muscle groups. Normal speech. Hospital Course Diabetic foot infection/Right second toe osteomyelitis with history of MRSA. Stable status post amputation right second toe. Start doxycycline status post IV vancomycin during hemodialysis. Wound care. Pain management with Percocet and IV morphine Podiatry and ID consulted End-stage renal disease on hemodialysis Saturday consult nephrology for continued hemodialysis Hypertension resume home medications. Stable Neuropathy continue on gabapentin. Stable Diabetes mellitus. Monitor fingerstick with sliding scale coverage Nausea and vomiting likely related to anesthesia. Resolved. Supportive treatment Pt Condition on Discharge: Stable Discharge Disposition: Discharge Home Discharge Time: > 30 minutes Discharge Instructions DIET: Follow Instructions for: Diabetic Diet, Renal Failure Diet Activities you can perform: Regular-No Restrictions Activities to Avoid: Driving Follow up Referrals: Nephrology - 1 Week PCP Follow-up - 1 Week PCP Follow-up New Medications: Doxycycline Hyclate (Doxycycline Hyclate) 100 Mg Cap 100 MG PO BID for Infection for 3 Days, #6 CAP 0 Refills Calcium Acetate (Phosphate Bin (Calcium Acetate) 667 Mg Cap 2001 MG PO TID for renal failure med, #90 CAP Famotidine (Famotidine) 20 Mg Tab 10 MG PO Q12HR for Manage Heartburn, #60 TAB Oxycodone HCl/Acetaminophen (Oxycodone-Acetaminophen 10-325) 10 Mg-325 Mg Tablet 1 TAB PO Q6H PRN for PAIN SCALE 6 TO 10, #28 TAB Continued Medications: Aspirin DR (Ecotrin Low Strength) 81 Mg Tabdr 81 MG PO DAILY, #30 TAB 0 Refills Gabapentin (Gabapentin) 100 Mg Cap 200 MG PO BID, #60 CAP 0 Refills Multiple Vitamin (Multi Vitamin Daily) 1 Tab Tab Serg Hwang MD Mar 18, 2017 15:19
[2017-03-18] MEDS ORDERED: FAMOTIDINE 20 MG TAB PO SCH (21:00)
== END 2017-03-18 14:54 | disposition home or self-care (01) | DRG 617 ==
LOC: NEPD 08:59 → NEDA 14:02 → N04B 19:15
PROVIDERS: ADMIT Internal Medicine; ATTEND Internal Medicine
PROC: 5A1D70Z Performance of Urinary Filtration, Intermittent, Less than 6 Hours Per Day (ICD-10-PCS; 2017-03-15)
PROC: 0Y6R0Z1 Detachment at Right 2nd Toe, High, Open Approach (ICD-10-PCS; principal; 2017-03-17 08:31)
DX: E11.69 Type 2 diabetes mellitus with other specified complication (principal); M86.9 Osteomyelitis, unspecified; I12.0 Hypertensive chronic kidney disease with stage 5 chronic kidney disease or end stage renal disease; E11.22 Type 2 diabetes mellitus with diabetic chronic kidney disease; N18.6 End stage renal disease; E11.621 Type 2 diabetes mellitus with foot ulcer; L97.511 Non-pressure chronic ulcer of other part of right foot limited to breakdown of skin; L97.512 Non-pressure chronic ulcer of other part of right foot with fat layer exposed; Z99.2 Dependence on renal dialysis; D63.1 Anemia in chronic kidney disease; E11.40 Type 2 diabetes mellitus with diabetic neuropathy, unspecified; E11.628 Type 2 diabetes mellitus with other skin complications; L08.9 Local infection of the skin and subcutaneous tissue, unspecified; Z89.411 Acquired absence of right great toe; E78.5 Hyperlipidemia, unspecified; B19.20 Unspecified viral hepatitis C without hepatic coma; Z86.14 Personal history of Methicillin resistant Staphylococcus aureus infection; E83.39 Other disorders of phosphorus metabolism; M20.41 Other hammer toe(s) (acquired), right foot; Z90.49 Acquired absence of other specified parts of digestive tract; B95.62 Methicillin resistant Staphylococcus aureus infection as the cause of diseases classified elsewhere; R11.2 Nausea with vomiting, unspecified; T41.205A Adverse effect of unspecified general anesthetics, initial encounter; Y92.239 Unspecified place in hospital as the place of occurrence of the external cause
CPT/HCPCS: 36558; 71020; 73620; 73630; 76937; 77001; 80048; 80053; 82948; 83735; 84100; 85025; 85610; 87040; 87641; 88305; 88311; 90935; 93005; 96365; 96375; C1751; C1769; J0131; J1642; J1815; J2270; J2405; J2543; J3370; J7040; J7050; L3260; Q4081